=== PATIENT | male | born 1945 | race African-American/Black ===

== ENCOUNTER 2017-06-01 10:14 | Day surgery (SDC) | payer MEDICARE, BC ==
[2017-06-01] MEDS ORDERED: diphenhydrAMINE HCl 25 MG CAP PO SCH (11:15)
[2017-06-01] MEDS ORDERED: Acetaminophen 500 MG TAB PO SCH (11:15)
[2017-06-01 18:58] VITALS: BP 117/64; TEMP 98.1
[2017-06-01 19:20] LABS: #Basophils 0.1 thou/uL (0.0-0.2); #Eosinphils 1.3 thou/uL (0.0-0.7); #Lymphocytes 2.4 thou/uL (1.20-3.40); #Monocytes 1.5 thou/uL (0.11-0.59); #Neutrophils 5.6 thou/uL (1.40-6.50); %Basophils 0.6 % (0.0-1.0); %Lymphocytes 22.2 % (21.0-51.0); %Monocytes 13.8 % (0.0-10.0); Hematocrit 28.6 % (42.0-52.0); Mean Platelet Volume 7.7 fL (7.4-10.4); Red Blood Cell (RBC) Count 3.04 mill/uL (4.70-6.10); White Blood Cell (WBC) Count 10.9 thou/uL (4.8-10.8)
== END 2017-06-01 19:14 | disposition home or self-care (01) ==
LOC: ONC/OP 10:14
PROVIDERS: ATTEND Internal Medicine Hematology & Oncology
PROC: 30233N1 Transfusion of Nonautologous Red Blood Cells into Peripheral Vein, Percutaneous Approach (ICD-10-PCS; principal; 2017-06-01)
DX: D64.9 Anemia, unspecified (principal); D69.6 Thrombocytopenia, unspecified; I12.0 Hypertensive chronic kidney disease with stage 5 chronic kidney disease or end stage renal disease; N18.6 End stage renal disease; C90.00 Multiple myeloma not having achieved remission; Z79.82 Long term (current) use of aspirin; Z79.899 Other long term (current) drug therapy; Z88.0 Allergy status to penicillin; Z99.2 Dependence on renal dialysis; Z89.512 Acquired absence of left leg below knee; Z89.511 Acquired absence of right leg below knee
CPT/HCPCS: 36415; 36430; 85025; 86850; 86900; 86901; 86922; P9016

== ENCOUNTER 2017-06-13 10:36 | Observation (INO) | payer MEDICARE, BC ==
[2017-06-13 12:10] LABS: Hematocrit 22.3 % (42.0-52.0); Mean Platelet Volume 7.3 fL (7.4-10.4); Red Blood Cell (RBC) Count 2.19 mill/uL (4.70-6.10); White Blood Cell (WBC) Count 12.1 thou/uL (4.8-10.8)
[2017-06-13] MEDS ORDERED: Propofol 200 MG/20 ML VIAL ONE (12:19)
[2017-06-13 12:21] LABS: #Eosinphils 1.4 thou/uL (0.0-0.7); #Lymphocytes 1.9 thou/uL (1.20-3.40); #Neutrophils 7.7 thou/uL (1.40-6.50); %Basophils 0.4 % (0.0-1.0); %Eosinophils 11.7 % (0.0-10.0); %Monocytes 7.9 % (0.0-10.0)
[2017-06-13 12:36] LABS: Anisocytosis MODERATE=16-30 cells (100X) (0-5/hpf); Hypochromia MODERATE=16-30 cells (100X) (0-5/hpf); Polychromasia MODERATE = 3-4 cells (100X) (0-2/hpf)
[2017-06-13] MEDS ORDERED: traMADol HCl 50 MG TAB PO PRN (16:48)
[2017-06-13] MEDS ORDERED: Lorazepam 1 MG TAB PO PRN (16:48)
[2017-06-13] MEDS: Carvedilol 3.125 MG TAB PO SCH (17:29)
--- NOTE | 2017-06-13 20:43 | CON ---
DATE OF CONSULTATION: 06/13/2017 REASON FOR CONSULTATION: Severe anemia. HISTORY OF PRESENT ILLNESS: Mr. Espino is a pleasant 71-year-old gentleman with a history of IgG Lambda multiple myeloma. He was treated in 2014 with Velcade, dexamethasone and Cytoxan. In 10/2015, he had prolonged hospitalization secondary to influenza and respiratory failure. This resulted in bilateral peripheral vascular disease causing necrosis of both feet. He had bilateral BKA with prostatic fitting. He has had stable myeloma until 08/2016 when his M spike started to rise. The patient has been on hemodialysis since his hospitalization in 2015. He has a chronic anemia. He was last seen in our clinic on 06/01/2017. His states that had a drop in hemoglobin recently, noted at dialysis. His stool guaiac was positive. He denies any tasha bleeding , but does have some black stools. He was transfused on 06/01/2017 with 2 units of packed RBCs for a hgb of 7.5. He improved to 9.2. His hemoglobin today was 6.6, so he was admitted for further workup. He denies any shortness of breath or chest pain. He complains of fatigue. He states he does see a stool in toilet when he flushes and occasionally on his tissue paper. He has hemodialysis on Saturday, Saturday, and Saturday. He states that he is not on Procrit injections. They were stopped in January or February when his hemoglobin was stable around 10. PAST MEDICAL HISTORY: 1. Multiple myeloma. 2. High cholesterol. 3. Hypertension. 4. Osteoarthritis. 5. Peripheral vascular disease. 6. End-stage renal disease. PAST SURGICAL HISTORY: 1. Bilateral BKA. 2. Fistula placement. 3. Multiple EGD and colonoscopies. FAMILY HISTORY: Noncontributory. SOCIAL HISTORY: , has 3 children, lives with his spouse. He is a former smoker. No alcohol or illicit drug use. ALLERGIES: PENICILLIN. HOME MEDICATIONS: 1. Renvela 800 mg t.i.d. 2. Acyclovir 400 mg daily. 3. Coreg 3.125 mg b.i.d. 4. Atorvastatin 80 mg daily. 5. Pepcid 20 mg daily. 6. Ferrous sulfate 325 mg daily. 7. Lorazepam p.r.n. 8. Magnesium oxide 400 mg daily. 9. MiraLax p.r.n. 10. Aspirin 81 mg daily. REVIEW OF SYSTEMS: Twelve point review of systems negative except for noted in HPI. PHYSICAL EXAMINATION: VITAL SIGNS: Temperature is 99.5, pulse is 67, respiratory rate 16, BP is 132/ 72, he is 100% on 2 liters. GENERAL: A thin male in no acute distress. HEENT: Normocephalic, atraumatic. Pupils equal and reactive to light. NECK: Supple. CARDIOVASCULAR: Regular rate and rhythm. LUNGS: Clear to auscultation. ABDOMEN: Soft and nontender. There is no organomegaly. EXTREMITIES: Bilateral BKAs with healed incisions. SKIN: No rash. LYMPHATIC: No adenopathy. HEMATOLOGIC: No petechia or purpura. NEUROLOGIC: Nonfocal. PSYCHIATRIC: The patient is alert and oriented and appropriate. PERTINENT LABORATORY DATA AND X-RAYS: Current WBCs are 12.1, hemoglobin 6.6, hematocrit 22.3, platelet count is 382,000, 64% neutrophils, and 16% lymphocytes. IMPRESSION: 1. Severe symptomatic anemia, multifactorial including bone marrow infiltration , ESRD, poss gi bleed. 2. Multiple myeloma. 3. End-stage renal disease on hemodialysis. DISCUSSION: The patient will be transfused 2 units of packed RBCs. He will have a CT enterography tomorrow to look at the small bowel. He does not require any treatment for his multiple myeloma at this time and has been stable. His ferritin is greater than 1700, so we will hold ferrous sulfate for now and resume at discharge. We may need to consider low-dose Procrit with hemodialysis. We will follow his CBC. Thank you for the consult. MING
[2017-06-13] MEDS ORDERED: Atorvastatin Calcium 40 MG TAB PO SCH (21:00)
[2017-06-13] MEDS ORDERED: Mirtazapine 15 MG TAB PO SCH (21:00)
--- NOTE | 2017-06-13 21:18 | CON ---
DATE OF CONSULTATION: 06/13/2017 REQUESTING PHYSICIAN: Dr. Morgan. PRIMARY CARE PHYSICIAN: Dr. Thomas PRIMARY RESIDENT BUYER: Dr. Florencio Velez. PRIMARY ONCOLOGIST: Dr. Mooney. REASON FOR CONSULTATION: Medical management. PRIMARY HEAD LOFT WORKER: Dr. Morgan. HISTORY OF PRESENT ILLNESS: Mr. Min Espino is a 71-year-old male with a history of multiple myel noel with a partial response to dexamethasone and Cytoxan, peripheral vascular disease resulting in b ilateral BKAs, end-stage renal disease, on hemodialysis Saturday, Saturday, Saturday, as well as a hist ory of current AVMs, who has been direct admit under the Gastroenterology Service for evaluation of his anemia. I reviewing previous records, the patient has a history of chronic anemia secondary to end-stage renal disease as well as multiple myeloma, but the beginning of May was noted to have a hemoglobin down to the 7s. He did receive 2 units of PRBCs. We treated his hemoglobin to 9, li mary lou, during dialysis, a routine H\T\H was checked and he was noted to be markedly anemic. He also s tated he had streaks of blood in his stool. Subsequently, a Hemoccult testing was performed, which was positive. He states he has been fatigued and short of breath and has had episodes of lightheade dness. No chest pain, palpitations, syncope was reported. In 2014, the patient had an colonoscopy as well as a capsule endoscopy, and was found to have several AVMs. Today due to his anemia, the pa marie underwent an endoscopy as well as colonoscopy, which was reportedly negative. He has been now admitted to the medical floor and is scheduled for an enterography in the morning. Currently, he i s resting comfortably and in no acute distress. Denies any chest pain or shortness of breath. The Hospitalist Service has been consulted for medical management. PAST MEDICAL HISTORY: 1. Multiple myeloma with a response to Velcade, dexamethasone, and Cytoxan in 2014. 2. End-stage renal disease, on hemodialysis Saturday, Saturday, and Saturday. 3. History of peripheral vascular disease. 4. AVM. 5. Anemia secondary to multiple myeloma and chronic kidney disease. PAST SURGICAL HISTORY: 1. Bilateral BKAs. 2. Right Julio fistula. CODE STATUS: FULL CODE. SOCIAL HISTORY: Denies any alcohol use, no tobacco use, no illicit drug use. MEDICATIONS: 1. Mirtazapine 50 mg p.o. at bedtime. 2. Ativan 1 mg p.o. t.i.d. p.r.n. 3. Ferrous sulfate 325 mg p.o. daily. 4. Coreg 3.125 mg p.o. b.i.d. 5. Lipitor 80 mg p.o. at bedtime. 6. Ultram 50 mg p.o. q.6 hours p.r.n. ALLERGIES: PENICILLINS. FAMILY HISTORY: Reviewed and noncontributory. REVIEW OF SYSTEMS: A full 10-point review of systems was obtained and is negative unless otherwise mentioned in the HPI. PHYSICAL EXAMINATION: CONSTITUTIONAL/VITAL SIGNS: Blood pressure 129/70, O2 saturation 100% on 2 liters nasal cannula, re spirations are 16, pulse is 69, and temperature is 98.0. GENERAL: He is in no acute distress, nontoxic appearing. HEENT: Pupils are equally round and accommodation. No scleral icterus. He has pale conjunctivae. ENT/MOUTH: Dry oral mucosa. RESPIRATORY: Equal chest wall expansion. No wheezes, rhonchi, or rales. CARDIOVASCULAR: S1 and S2 present. No murmurs, gallops, or rubs. GASTROINTESTINAL: Soft, nontender, nondistended. Bowel sounds present in all 4 quadrants. MUSCULOSKELETAL: He has bilateral BKAs. NEUROLOGIC: No ptosis, no facial sensation or jaw protrusion, no focal deficits. PSYCHIATRIC: He is awake, alert to time, place, person, answers questions appropriately. SKIN: Normal skin turgor. LABORATORY AND X-RAY FINDINGS: Taken prior to EGD revealed WBC of 12.1, hemoglobin 6.6, hematocrit 22.3, and platelet count 382,000. No imaging has performed. Other laboratory values sent with the patient include total IgA level 148. IgG 1343. is 18. ASSESSMENT AND PLAN: Mr. Min Espino is a 71-year-old male with a past medical history of multipl e myeloma, end-stage renal disease on hemodialysis, hypertension, peripheral vascular disease, who p resents as a direct admit for an evaluation of anemia. 1. Anemia. The patient has been admitted to the medical floor. His anemia is most likely multifac torial; however, given his acute drop in hemoglobin as well as a positive Hemoccult further evaluati on, intervention is warranted to evaluate the etiology of this. His endoscopy and colonoscopy repor tedly normal. He is set for enterography in the morning. The patient will be transfused 2 units of PRBCs. We will monitor his H\T\H and transfuse as needed. He may require Procrit with hemodialysi s. Gastroenterology is aware of the patient. As stated before, we will transfuse p.r.n. 2. Hypertension. Continue with Coreg. 3. Peripheral vascular disease. Continue with beta-leta and statin therapy. 4. End-stage renal disease, on hemodialysis. Nephrology with Dr. Velez has been consulted. He sh ould undergo routine hemodialysis on Saturday, Saturday, and Saturday. 5. Resume the patient's home medications except for aspirin. 6. Renal diet. 7. Check daily labs. 8. P.r.n. order set. 9. I explained all this to the patient at bedside. He is agreeable to the plan of treatment. All questions have been answered. 10. The patient's further hospital course will be dictated by his clinical course while here. I wi ll follow the patient while he is in house. Thank you for the courtesy of this consultation.
--- NOTE | 2017-06-13 22:05 | OP ---
DATE OF PROCEDURE: 06/13/2017 PREOPERATIVE DIAGNOSES: 1. Recurrent anemia requiring transfusion and redevelopment of anemia again, no overt bleeding, [place] the patient sometimes has a bowel movement and there is some blood leaching out from the stool . 2. Normal esophagogastroduodenoscopy and colonoscopy in 2014, capsule endoscopy of the small bowel in 2014. He had some scant bleeding in the small bowel, which is felt to be related to arteriovenou s malformations. At that time, he managed well and was on iron. Now, he is having recurrent transf usions despite being on iron. PROCEDURES PERFORMED: Esophagogastroduodenoscopy, enteroscopy, and colonoscopy. POSTOPERATIVE DIAGNOSES: Normal esophagogastroduodenoscopy, normal enteroscopy, and normal colonosc opy. Hemoglobin today was 6.2. RECOMMENDATIONS: 1. Admit to the hospital for transfusion 1 unit today and 1 unit tomorrow on dialysis. 2. CT enterography to rule out mass lesion to the small bowel. 2. We will consult his sweep press operator with regard to his myeloma, which probably is contributing as w ell and also his medicaid nurse. ANESTHESIA: TIVA. PROCEDURE IN DETAIL: After the patient was informed of the risks, benefits, possible complications of endoscopy including perforation, bleeding, reactions to medication and aspiration, informed conse nt was obtained. The patient was brought to endoscopy suite in a gradual fashion. Once he was comf ortable, a bite block was placed in the incisural orifice. The endoscope was advanced through the e sophagus, stomach, and second and third portion of the duodenum and slowly removed. There was a goo d visualization of the mucosa. No masses, lesions, or arteriovenous malformations. The scope was a dvanced down to the proximal jejunum. No bleeding, old blood, or bleeding sites were identified. T he stomach was notable for slight petechiae, but no bleeding sites were identified. Retroflexed vie ws were normal. The esophagus was normal. The scope was removed. The patient was turned in the room. A rectal exam was performed. The endoscope was advanced throug h the anal canal through the colon to the cecum and into the terminal ileum. There were no abnormal ities noted. There was no fresh blood or old blood or signs of stigmata of recent bleeding. Retrof lexed views in the rectum were normal. The scope was removed. The patient tolerated the procedure well with no complications.
--- NOTE | 2017-06-13 22:17 | HP ---
HISTORY OF PRESENT ILLNESS: Mr. Espino is a 71-year-old gentleman who knows me from previous diagn osis of multiple myeloma prior to 2014. He was treated initially with Dr. Venegas in [facility] and doctors in [facility]. When he was initially diagnosed, he had severe problems in the knee. Endoscopy showed nothing abnormal. On CAT scan, retroperitoneal hematoma around the d uodenum and pancreatic region. This was biopsied actually at one point in time at [facility], not felt to be a mass or related to myeloma or anything else. He had a capsule endoscopy of the sma ll bowel in 2013 that showed some AVMs in the small bowel with some slight bleeding. We have talked about sending him to [facility] for deep enteroscopy, but ultimately, he was able to be maintained on iron supplementation. Earlier this year, he got acutely ill and had become septic and was on dialys is. Ultimately, he had 2 bilateral BKA amputations. Just recently, he has been having more problem s with anemia on dialysis. He received 2 units of blood for hemoglobin of 7.2 by his report and his director voice report. Then he he was seen in our office earlier this week. He was asked to be reev aluated for possible GI blood loss, it was felt to be an excess related to that of myeloma or dialys is for end-stage renal disease. He reports that he has seen occasionally scant blood reaching out o f the stool, but the stools are typically brown. He has had no overt clots or melenic stool. Prese ntly, he is dialyzing Saturday, Saturday, and Saturday. We did obtain hemoglobin here before his endos copy and it was 6.2 with his endoscopies are being normal today including deep enteroscopy from [facility], we decided to admit him for blood transfusion and further evaluation. MEDICATIONS: Acyclovir, carvedilol, atorvastatin, famotidine, ferrous sulfate, lorazepam, hydrocodo ne p.r.n., magnesium oxide p.r.n., MiraLax p.r.n., mirtazapine, p.r.n. Zofran, promethazine, aspirin 81 mg a day, Renvela, and Tylenol. PAST MEDICAL HISTORY: Multiple myeloma, end-stage renal disease, and chronic anemia. PAST SURGICAL HISTORY: Bilateral AKA, previous EUS with biopsy of retroperitoneal mass which was ju st a hematoma, and previous endoscopies. ALLERGIES: PENICILLIN. SOCIAL HISTORY: Former smoker. Does not smoke now. PHYSICAL EXAMINATION: VITAL SIGNS: Stable. HEENT: Within normal limits. NECK: Supple. LUNGS: Clear. HEART: Regular rate and rhythm without clicks or murmurs. ABDOMEN: Soft, nontender, nondistended. LABORATORY STUDIES: Hemoglobin 6.6, white count 12.1, MCV 102, platelet count 389. Ferritin was 17 69 on 05/30/2017. ASSESSMENT: Anemia of unclear etiology. No overt signs of bleeding, minimal history of bleeding pe r the patient. I do not think this would explain his need for transfusion of 2 units on 06/01/2017 and now needing blood again today. RECOMMENDATIONS: Admit to the hospital. We will re-involve his director voice and his program aide i n his care. I will perform CT enteroscopy to evaluate for small bowel lesions, retroperitoneal lesi ons, and observe for any signs of bleeding. If he has any signs of acute bleeding, he will be trans ferred to a tertiary facility where deep balloon enteroscopy is available.
[2017-06-14 05:28] LABS: Hematocrit 24.2 % (42.0-52.0)
[2017-06-14 05:47] LABS: Anion Gap 20 mmol/L (10-20); BUN (Urea Nitrogen) 40 mg/dL (8.4-25.7); BUN/Creatinine Ratio 5.44; Calc. Creatinine Clearance 13 mL/min (70-130); Calcium 9.2 mg/dL (7.8-10.44); Carbon Dioxide 19 mmol/L (23-31); Chloride 104 mmol/L (98-107); Estimated GFR-MDRD 9; Phosphorus 5.4 mg/dL (2.3-4.7)
[2017-06-14] MEDS ORDERED: Acetaminophen 325 MG TAB PO PRN (07:30)
[2017-06-14] MEDS ORDERED: Milk Of Magnesia 30 ML UDCUP PO PRN (07:30)
[2017-06-14] MEDS ORDERED: hydrALAZINE 20 MG/ML VIAL SLOW IVP PRN (07:30)
[2017-06-14] MEDS ORDERED: Sodium Chloride 0.65% Nasal 44 ML BOT EA NARE PRN (07:30)
[2017-06-14] MEDS ORDERED: Senokot 8.6 MG TAB PO PRN (07:30)
[2017-06-14] MEDS ORDERED: Ondansetron ODT 4 MG TAB PO PRN (07:30)
[2017-06-14] MEDS ORDERED: Diabetic Tussin 200 MG/10 ML UDCUP PO PRN (07:30)
[2017-06-14] MEDS ORDERED: Mag-Al 1200 mg/1200 mg/30 ML UDCUP PO PRN (07:30)
[2017-06-14] MEDS ORDERED: Ondansetron HCl/PF 4 MG/2 ML Vial IVP PRN (07:30)
[2017-06-14] MEDS: Carvedilol 3.125 MG TAB PO SCH ×3 (08:38→18:32)
[2017-06-14] MEDS ORDERED: Famotidine 20 MG TAB PO SCH (09:00)
[2017-06-14] MEDS ORDERED: Heparin 1,000 UNITS/ML VIAL ONE (11:11)
--- NOTE | 2017-06-14 11:47 | PDOC.PN ---
- Subjective Encounter Start Date: 06/14/17 Encounter Start Time: 09:30 -: old records requested/rev Patient seen and examined. No new complaints. No overnight events - Objective MAR Reviewed: Yes Vital Signs & Weight: Vital Signs (12 hours) Temp Pulse Resp BP BP Pulse Ox 06/14/17 08:00 98.0 F 62 16 06/14/17 07:56 98.0 F 62 16 133/68 100 06/14/17 04:00 98.4 F 70 18 124/66 98 06/14/17 00:17 98.2 F 69 18 115/61 100 Weight Weight 220 lb 5 oz I&O: 06/13/17 06/14/17 06/15/17 06:59 06:59 06:59 Intake Total 350 0 Balance 350 0 Result Diagrams: 06/14/17 04:26 06/14/17 04:26 Radiology Reviewed by me: Yes Phys Exam - Physical Examination Constitutional: NAD HEENT: PERRLA, moist MMs, sclera anicteric Neck: no JVD, supple Respiratory: no wheezing, no rales, no rhonchi Cardiovascular: RRR, no significant murmur, no rub Gastrointestinal: soft, non-tender, no distention, positive bowel sounds Musculoskeletal: no edema, pulses present Neurological: non-focal, normal sensation, moves all 4 limbs Psychiatric: normal affect, A&O x 3 Skin: no rash, normal turgor Dx/Plan (1) Anemia Code(s): D64.9 - ANEMIA, UNSPECIFIED Status: Chronic (2) Anxiety and depression Code(s): F41.8 - OTHER SPECIFIED ANXIETY DISORDERS Status: Chronic (3) Dyslipidemia Code(s): E78.5 - HYPERLIPIDEMIA, UNSPECIFIED Status: Chronic (4) ESRD (end stage renal disease) on dialysis Code(s): N18.6 - END STAGE RENAL DISEASE; Z99.2 - DEPENDENCE ON RENAL DIALYSIS Status: Chronic Comment: On HD per Dr Velez (5) HTN (hypertension) Code(s): I10 - ESSENTIAL (PRIMARY) HYPERTENSION Status: Chronic (6) Hx of below knee amputation Code(s): Z89.519 - ACQUIRED ABSENCE OF UNSPECIFIED LEG BELOW KNEE Status: Chronic (7) Multiple myeloma Code(s): C90.00 - MULTIPLE MYELOMA NOT HAVING ACHIEVED REMISSION Status: Chronic (8) Obesity (BMI 30-39.9) Code(s): E66.9 - OBESITY, UNSPECIFIED Status: Chronic (9) PVD (peripheral vascular disease) Code(s): I73.9 - PERIPHERAL VASCULAR DISEASE, UNSPECIFIED Status: Chronic - Plan cont current plan of care * one unit prbc given, 2nd unit will be given with HD later today * CT abdomen done * procrit with HD * medication reviewed as below * symptomatic treatment * discharge per GI . Review of Systems - Review of Systems ENT: negative: Ear Pain, Ear Discharge, Nose Pain, Nose Discharge, Nose Congestion, Mouth Pain, Mouth Swelling, Throat Pain, Throat Swelling, Other Respiratory: negative: Cough, Dry, Shortness of Breath, Hemoptysis, SOB with Excertion, Pleuritic Pain, Sputum, Wheezing Cardiovascular: negative: Chest Pain, Palpitations, Orthopnea, Paroxysmal Noc. Dyspnea, Edema, Light Headedness, Other Gastrointestinal: negative: Nausea, Vomiting, Abdominal Pain, Diarrhea, Constipation, Melena, Hematochezia, Other Genitourinary: negative: Dysuria, Frequency, Incontinence, Hematuria, Retention , Other Musculoskeletal: negative: Neck Pain, Shoulder Pain, Arm Pain, Back Pain, Hand Pain, Leg Pain, Foot Pain, Other - Medications/Allergies Allergies/Adverse Reactions: Allergies Allergy/AdvReac Type Severity Reaction Status Date / Time Penicillins Allergy "loiss, Verified 06/12/17 15:06 can't breathe" Medications: Current Medications Acetaminophen (Tylenol) 650 mg PO Q4H PRN PRN Reason: Headache/Fever or Mild Pain Al Hydroxide/Mg Hydroxide (Maalox) 15 ml PO Q4H PRN PRN Reason: Heartburn or Indigestion Atorvastatin Calcium (Lipitor) 80 mg PO HS [facility] Last Admin: 06/13/17 21:26 Dose: 80 mg Carvedilol (Coreg) 3.125 mg PO BID-WM [facility] Last Admin: 06/14/17 10:07 Dose: 3.125 mg Famotidine (Pepcid) 20 mg PO DAILY [facility] Last Admin: 06/14/17 10:07 Dose: 20 mg Guaifenesin (Robitussin Sf) 200 mg PO Q4H PRN PRN Reason: Cough Hydralazine HCl (Apresoline) 10 mg SLOW IVP Q4H PRN PRN Reason: Systolic BP > 180 Lorazepam (Ativan) 1 mg PO TID PRN PRN Reason: Anxiety/Agitation Magnesium Hydroxide (Milk Of Magnesium) 30 ml PO DAILYPRN PRN PRN Reason: Constipation Mirtazapine (Remeron) 15 mg PO HS [facility] Last Admin: 06/13/17 21:27 Dose: 15 mg Ondansetron HCl (Zofran Odt) 4 mg PO Q6H PRN PRN Reason: Nausea/Vomiting Ondansetron HCl (Zofran) 4 mg IVP Q6H PRN PRN Reason: Nausea/Vomiting Senna (Senokot) 2 tab PO HSPRN PRN PRN Reason: Constipation Sodium Chloride (Flush - Normal Saline) 10 ml IVF PRN PRN PRN Reason: Saline Flush Sodium Chloride (Flush - Normal Saline) 10 ml IVF BID [facility] Last Admin: 06/14/17 10:08 Dose: 10 ml Sodium Chloride (Tornado Nasal [place]umpass 0.65%) 0 ml EA NARE QIDPRN PRN PRN Reason: Nasal Congestion Tramadol HCl (Ultram) 50 mg PO Q6H PRN PRN Reason: Pain
[2017-06-14] MEDS ORDERED: Heparin 10,000 UNITS/ 10 ML VIAL FS PRN ×2 (12:20)
[2017-06-14] MEDS ORDERED: Sodium Chloride 0.9% 100 ML BAG IVPB PRN (12:30)
[2017-06-14] MEDS ORDERED: Epoetin (ESRD) 20,000 UNITS/ML IVP SCH (12:30)
[2017-06-14] MEDS ORDERED: Epoetin (ESRD) 20,000 UNITS/ML SC SCH (12:45)
[2017-06-14 13:06] VITALS: BMI 15.5
--- NOTE | 2017-06-14 13:30 | DIS ---
DATE OF ADMISSION: 06/13/2017 DATE OF DISCHARGE: Pending. PRIMARY DISCHARGE DIAGNOSIS: Symptomatic anemia, status post transfusion of packed red blood cells. SECONDARY DISCHARGE DIAGNOSES: Anxiety and depression, dyslipidemia, end-stage renal disease on hem odialysis, hypertension, history of below-knee amputation, multiple myeloma, and peripheral vascular disease. PRIMARY PROCEDURE/OPERATION: Dr. Morgan did endoscopy with esophagogastroduodenoscopy which was nor mal, enteroscopy was normal and colonoscopy was also normal. RADIOLOGICAL INVESTIGATION: Abdomen and pelvis CT scan was done, official report is pending. SIGNIFICANT LABS: Hemoglobin 7.5, WBC 12.1, and platelets 349. Sodium 138, creatinine 7.35, potass ium 4.9, albumin 3.0. DISCHARGE MEDICATIONS: Lipitor 80 mg p.o. at bedtime, Coreg 3.125 mg p.o. b.i.d., ferrous sulfate 3 25 mg p.o. daily, Ativan 1 mg p.o. t.i.d. p.r.n., Remeron 15 mg p.o. at bedtime, and tramadol 50 mg q.6 hourly p.r.n. CONTRAINDICATIONS: None. CODE STATUS: FULL CODE. INPATIENT CONSULTANTS: Dr. Morgan was primary while in hospital. Sound team was consulted for medi kevin management. Dr. Blayne Ware with a enchilada maker was consulted while in hospital. TEST RESULTS PENDING ON DISCHARGE: CT abdomen and pelvis. DISCHARGE PLAN: Post hospital, the patient will follow up with Dr. Morgan and Dr. Blayne Ware as a n outpatient basis. HOSPITAL COURSE: A 71-year-old male who was admitted by Dr. Mogran from his office. This patient w as having low hemoglobin. At this time, Dr. Morgan did endoscopy with upper endoscopy, lower endosc opy, and enteroscopy which was normal. He was admitted for blood transfusion. He received 1 unit o f blood transfusion yesterday and today he is with the dialysis. He is going to get another unit of blood transfusion. As endoscopy was negative, that is why we did CT abdomen and pelvis to rule out any pathology. Hematology was also consulted while in hospital and they recommended to continue Pr ocrit therapy with the dialysis as needed basis. At this point, the patient is on appropriate home medication and he will continue all his previous m edication upon discharge. The patient is seen and examined at bedside today as long as Dr. Eddie arellano and CT abdomen and pelvis is not showing any worrisome finding then this patient is medically st able for discharge after dialysis. The patient is seen and examined at bedside today. Please see m y progress note from today for further details.
--- NOTE | 2017-06-14 13:33 | CT ---
CT ABDOMEN AND PELVIS WITH AND WITHOUT IV CONTRAST FOLLOWING ENTEROGRAPHY PROTOCOL: DATE: 06/14/17. HISTORY: Anemia. FINDINGS: There is dependent bibasilar atelectasis with tiny left pleural effusion present. The gallbladder is decompressed with gallbladder calculus present. There are multiple subcentimeter too small to characterize hypodense lesions seen throughout each lo be of the liver with additional larger hypodense hepatic lesions which demonstrate fluid attenuation are consistent with cysts with a larger hypodense lesion in the posterior inferior aspect posterior segment right hepatic lobe measuring 1.9 cm as well as a hypodense lesion in the caudate lobe measu ring 1.5 cm. The findings are likely related to multiple hepatic cysts, some of which were imaged o n prior CTA of the chest on 10/25/15. While cystic metastatic lesions could not be entirely excluded given multiplicity, findings are probably related to hepatic cyst. There is an ill-defined low-dens ity area seen at the most anterior aspect medial segment of the left hepatic lobe which does not hav e the appearance of a cyst. This may represent a perfusion abnormality in this region. There is al so an ill-defined low-density area surrounding the presumed cyst in the inferior aspect posterior se gment right hepatic lobe which also could be related to perfusion defect. There is a low-density lesion measuring 1.4 cm seen in the superior pole of the spleen. This low-de nsity lesion on prior study in 2016 measured 2.2 cm. The spleen is slightly heterogeneous in appear ance probably related to phase of enhancement. There is a subcentimeter nodule in the right adrenal gland demonstrating attenuation coefficient mos t suggestive of a small adrenal adenoma. There is a 7 mm exophytic slightly increased density lesion at the posterior aspect superior pole ri ght kidney which does appear to demonstrate mild enhancement and may represent a very tiny renal tiesha l carcinoma. However, this is difficult to accurately characterize due to very small size. The left adrenal gland and kidney have a normal CT appearance. The stomach is distended with fluid and gas and has a normal appearance. The small bowel loops are normal in caliber, and no obvious lesion is seen within loops of small bowel. There is a small amount of free fluid seen in the abdomen, predominantly adjacent to the liver and s pleen and in each paracolic gutter. There are a few scattered colonic diverticula seen. There is fluid surrounding the appendix, but the appendix is filled with gas and normal in caliber. Vascular calcifications are seen in the abdominal aorta and involving the iliac arteries. The mesen teric vessels are patent. There is a single right renal artery which appears grossly patent. There are 2 left renal arteries which also appear patent with very tiny more inferiorly located accessory left renal artery. The urinary bladder is incompletely distended. IMPRESSION: 1. Suggestion of a very tiny enhancing lesion at the superior pole right kidney. While this is dif ficult to definitively characterize due to very small size, there is a question of mild enhancement and followup CT scan examination in 4-6 months is recommended for further evaluation. 2. Multiple hypodense lesions seen throughout each lobe of the liver statistically most likely repr esenting multiple hepatic cysts. There are ill-defined low-density areas within the left and right hepatic lobes which may be related to perfusion abnormalities. 3. Low-density lesion in the superior pole of the spleen which is smaller in size compared to the s monsedy in 2016. 4. Small amount of intraperitoneal free fluid. 5. Cholelithiasis with evidence of decompressed gallbladder. 6. No small bowel abnormality is visualized on this exam. 7. Tiny right adrenal adenoma. POS: RAYMOND
[2017-06-14 18:40] VITALS: BP 133/70; TEMP 97.8
--- NOTE | 2017-06-15 00:41 | PRG ---
DATE OF SERVICE: 06/14/2017 SUBJECTIVE: Mr. Espino has had no overt signs of bleeding. 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 He was dialyzed and received 1 unit of blood yesterday and he is going to receive 1 unit of blood n ow and dialysis. He is without complaints. OBJECTIVE: VITAL SIGNS: Temperature is 97 and blood pressure 120/66. LUNGS: Clear. HEART: Regular rate and rhythm without clicks or murmurs. ABDOMEN: Nontender. LABORATORY STUDIES: Hemoglobin 7.5 from 6.6 after [address] mesenteric angiogram showed normal small bowel and stomach, some small enhancing lesions in the kidney, cystic lesions in the li mary lou, lesions in the spleen which were smaller than in studies in 2016, cholelithiasis with a decompr essed gallbladder, small right adrenal adenoma. ASSESSMENT: Recurrent anemia. His EGD and colonoscopy and small bowel enteroscopy were normal exce pt for a few small petechiae in the stomach. The patient did have a capsule endoscopy in 2013, whic h revealed some bleeding in the small bowel. It is unlikely we were able to get to that area with h is endoscopies. There are no overt signs of bleeding at this time. RECOMMENDATIONS: We will place him on a PPI. Agree with plan for Epogen. If he continues to be tr ansfusion dependent in the outpatient setting, we can send him on to [place] or [place] for a double balloon enteroscopy to check a small bowel series to see if there is an AVM or something to alireza salter, but at this time I do not see any evidence of overt bleeding.
== END 2017-06-14 19:30 | disposition home or self-care (01) ==
LOC: SDC 10:36 → T4-B 13:30
PROVIDERS: ADMIT Internal Medicine Gastroenterology; ATTEND Internal Medicine Gastroenterology
PROC: 0DJD8ZZ Inspection of Lower Intestinal Tract, Via Natural or Artificial Opening Endoscopic (ICD-10-PCS; principal; 2017-06-13)
PROC: 0DJ08ZZ Inspection of Upper Intestinal Tract, Via Natural or Artificial Opening Endoscopic (ICD-10-PCS; 2017-06-13)
DX: D64.9 Anemia, unspecified (principal); K92.2 Gastrointestinal hemorrhage, unspecified; I12.0 Hypertensive chronic kidney disease with stage 5 chronic kidney disease or end stage renal disease; N18.6 End stage renal disease; I73.9 Peripheral vascular disease, unspecified; F32.9 Major depressive disorder, single episode, unspecified; F41.9 Anxiety disorder, unspecified; E78.5 Hyperlipidemia, unspecified; Z88.0 Allergy status to penicillin; Z79.82 Long term (current) use of aspirin; Z79.899 Other long term (current) drug therapy; Z89.511 Acquired absence of right leg below knee; Z89.512 Acquired absence of left leg below knee; Z87.891 Personal history of nicotine dependence; Z99.2 Dependence on renal dialysis
CPT/HCPCS: 36430 ×2; 43235; 45378; 74178; 80069; 85014; 85018; 85025; 85049; 86850; 86900; 86901; 86920; 86922; G0378; G0379; P9016 ×2; Q4081; 36415; 90935; A4216; G0257; J1644; J2704

== ENCOUNTER 2017-10-22 08:15 | Day surgery (SDC) | payer MEDICARE, BC ==
[2017-10-22] MEDS ORDERED: diphenhydrAMINE 25 MG CAP PO SCH (08:45)
[2017-10-22] MEDS ORDERED: Acetaminophen 500 MG TAB PO SCH (08:45)
[2017-10-22] MEDS ORDERED: Sodium Chloride 0.9% 20 ML ONE (09:02)
[2017-10-22 15:14] VITALS: BP 131/61; TEMP 98.2
[2017-10-22 15:48] LABS: Hemoglobin 9.1 g/dL (14.0-18.0); Mean Corpuscular HGB CONC 31.9 g/dL (32.0-36.0); Mean Corpuscular Hemoglobin 28.2 pg (27.0-31.0); Mean Corpuscular Volume 88.4 fl (80.0-94.0); Mean Platelet Volume 12.1 fL (7.4-10.4); Platelet Count 166 thou/uL (130-400); RBC Distribution Width 18.2 % (11.5-14.5); Red Blood Cell (RBC) Count 3.24 mill/uL (4.70-6.10); White Blood Cell (WBC) Count 6.8 thou/uL (4.8-10.8)
[2017-10-22 16:07] LABS: Anisocytosis SLIGHT = 6-15 cells (100X) (0-5/hpf); Band 4 % (5-11); Eosinophils 11 % (0-10); Lymphocytes 12 % (21-51); MDiff Complete? YES; Monocytes 17 % (0-10); Neutrophil 55 % (42-75); Nucleated RBC 1 % (0); Ovalocytes SLIGHT = 2-5 cells (100X) (0-1/hpf); PLT Morphology Comment Appears Adequate; Polychromasia SLIGHT = 2-3 cells (100X) (0-2/hpf); Reactive Lymphocytes 1 % (0-10); Schistocytes SLIGHT = 2-5 cells (100X) (0-1/hpf); Target Cells SLIGHT = 2-5 cells (100X) (0-1/hpf); Tear Drops SLIGHT = 2-5 cells (100X) (0-1/hpf)
== END 2017-10-22 15:28 | disposition home or self-care (01) ==
LOC: ONC/OP 08:15
PROVIDERS: ATTEND Internal Medicine Hematology & Oncology
PROC: 30233N1 Transfusion of Nonautologous Red Blood Cells into Peripheral Vein, Percutaneous Approach (ICD-10-PCS; principal; 2017-10-22)
DX: I12.0 Hypertensive chronic kidney disease with stage 5 chronic kidney disease or end stage renal disease (principal); N18.6 End stage renal disease; D63.1 Anemia in chronic kidney disease; I73.9 Peripheral vascular disease, unspecified; E78.5 Hyperlipidemia, unspecified; F32.9 Major depressive disorder, single episode, unspecified; F41.9 Anxiety disorder, unspecified; Z88.0 Allergy status to penicillin; Z89.519 Acquired absence of unspecified leg below knee; Z99.2 Dependence on renal dialysis; Z98.890 Other specified postprocedural states
CPT/HCPCS: 36430; 85025; 86850; 86880; 86900; 86901; 86905; 86922; A4216; P9016

== ENCOUNTER 2017-11-05 07:53 | Day surgery (SDC) | payer MEDICARE, BC ==
[2017-11-05] MEDS ORDERED: Sodium Chloride 0.9% 30 ML ONE (08:11)
[2017-11-05] MEDS ORDERED: Acetaminophen 500 MG TAB PO SCH (08:15)
[2017-11-05] MEDS ORDERED: diphenhydrAMINE 25 MG CAP PO SCH (08:15)
[2017-11-05 15:23] VITALS: BP 131/59; TEMP 98.2
[2017-11-05 16:51] LABS: Hemoglobin 8.8 g/dL (14.0-18.0); Mean Corpuscular HGB CONC 31.9 g/dL (32.0-36.0); Mean Corpuscular Hemoglobin 28.7 pg (27.0-31.0); Mean Corpuscular Volume 89.9 fl (80.0-94.0); Mean Platelet Volume 10.9 fL (7.4-10.4); Platelet Count 174 thou/uL (130-400); RBC Distribution Width 18.2 % (11.5-14.5); Red Blood Cell (RBC) Count 3.07 mill/uL (4.70-6.10); White Blood Cell (WBC) Count 6.9 thou/uL (4.8-10.8)
[2017-11-05 17:22] LABS: Anisocytosis MODERATE=16-30 cells (100X) (0-5/hpf); Band 1 % (5-11); Elliptocytes SLIGHT = 2-5 cells (100X) (0-1/hpf); Eosinophils 3 % (0-10); Lymphocytes 16 % (21-51); MDiff Complete? YES; Monocytes 10 % (0-10); Neutrophil 69 % (42-75); Ovalocytes SLIGHT = 2-5 cells (100X) (0-1/hpf); PLT Morphology Comment Appears Adequate; Polychromasia SLIGHT = 2-3 cells (100X) (0-2/hpf); Schistocytes SLIGHT = 2-5 cells (100X) (0-1/hpf); Target Cells SLIGHT = 2-5 cells (100X) (0-1/hpf); Tear Drops SLIGHT = 2-5 cells (100X) (0-1/hpf)
== END 2017-11-05 16:05 | disposition home or self-care (01) ==
LOC: ONC/OP 07:53
PROVIDERS: ATTEND Internal Medicine Hematology & Oncology
PROC: 30233N1 Transfusion of Nonautologous Red Blood Cells into Peripheral Vein, Percutaneous Approach (ICD-10-PCS; principal; 2017-11-05)
DX: D64.9 Anemia, unspecified (principal); D69.6 Thrombocytopenia, unspecified; I12.0 Hypertensive chronic kidney disease with stage 5 chronic kidney disease or end stage renal disease; N18.6 End stage renal disease; C90.00 Multiple myeloma not having achieved remission; I73.9 Peripheral vascular disease, unspecified; F41.8 Other specified anxiety disorders; E78.5 Hyperlipidemia, unspecified; E66.9 Obesity, unspecified; Z88.0 Allergy status to penicillin; Z99.2 Dependence on renal dialysis; Z98.890 Other specified postprocedural states
CPT/HCPCS: 36430; 85025; 86850; 86900; 86901; 86922; A4216; P9016

== ENCOUNTER 2017-12-26 08:19 | Day surgery (SDC) | payer MEDICARE, BC ==
[2017-12-26] MEDS ORDERED: Sodium Chloride 0.9% 40 ML ONE (08:37)
[2017-12-26] MEDS ORDERED: Acetaminophen 500 MG TAB PO SCH (08:45)
[2017-12-26] MEDS ORDERED: diphenhydrAMINE 25 MG CAP PO SCH (08:45)
[2017-12-26 15:52] VITALS: BP 121/61; TEMP 98.4
== END 2017-12-26 15:52 | disposition home or self-care (01) ==
LOC: ONC/OP 08:19
PROVIDERS: ATTEND Internal Medicine Medical Oncology
PROC: 30233N1 Transfusion of Nonautologous Red Blood Cells into Peripheral Vein, Percutaneous Approach (ICD-10-PCS; principal; 2017-12-26)
DX: D64.9 Anemia, unspecified (principal); D69.6 Thrombocytopenia, unspecified; C90.00 Multiple myeloma not having achieved remission; I12.0 Hypertensive chronic kidney disease with stage 5 chronic kidney disease or end stage renal disease; N18.6 End stage renal disease; F32.9 Major depressive disorder, single episode, unspecified; F41.9 Anxiety disorder, unspecified; I73.9 Peripheral vascular disease, unspecified; E78.5 Hyperlipidemia, unspecified; Z99.2 Dependence on renal dialysis; Z88.0 Allergy status to penicillin
CPT/HCPCS: 36430; 85014; 85018; 86850; 86900; 86901; 86922; A4216; P9016

== ENCOUNTER 2018-03-25 12:48 | Outpatient (CLI) | payer MEDICARE, BC | END 2018-03-25 12:49 | disposition home or self-care (01) | LOC: BICRAD 12:48 | PROVIDERS: ATTEND Internal Medicine Hematology & Oncology | DX: C90.00 Multiple myeloma not having achieved remission (principal); R11.2 Nausea with vomiting, unspecified; N18.4 Chronic kidney disease, stage 4 (severe); D50.0 Iron deficiency anemia secondary to blood loss (chronic); D63.1 Anemia in chronic kidney disease; E83.52 Hypercalcemia | CPT/HCPCS: 77075 ==

== ENCOUNTER 2018-04-10 14:06 | Day surgery (SDC) | payer MEDICARE, BC ==
[2018-04-10 14:28] VITALS: BMI 17.6
[2018-04-10] MEDS ORDERED: diphenhydrAMINE 25 MG CAP PO SCH (14:30)
[2018-04-10] MEDS ORDERED: Acetaminophen 500 MG TAB PO SCH (14:30)
[2018-04-10 23:13] VITALS: BP 135/72; TEMP 98.5
[2018-04-10 23:55] LABS: Hemoglobin 10.2 g/dL (14.0-18.0)
[2018-04-11 00:10] LABS: Anisocytosis SLIGHT = 6-15 cells (100X) (0-5/hpf); Band 15 % (5-11); Eosinophils 10 % (0-10); Lymphocytes 15 % (21-51); MDiff Complete? YES; Mean Corpuscular HGB CONC 32.4 g/dL (32.0-36.0); Mean Corpuscular Hemoglobin 29.3 pg (27.0-31.0); Mean Corpuscular Volume 90.4 fL (78.0-98.0); Mean Platelet Volume 13.5 fL (7.4-10.4); Monocytes 9 % (0-10); Neutrophil 51 % (42-75); PLT Morphology Comment Appears Decreased; Platelet Count 68 thou/uL (130-400); RBC Distribution Width 16.3 % (11.5-14.5); Red Blood Cell (RBC) Count 3.49 mill/uL (4.70-6.10); White Blood Cell (WBC) Count 8.2 thou/uL (4.8-10.8)
== END 2018-04-10 23:34 | disposition home or self-care (01) ==
LOC: 2SW 14:06 → SDC/OP 14:06 → 2SW 14:06 → UNDOADMOB 14:06 → SDC/OP 23:34 → UNDODISOB 23:34
PROVIDERS: ATTEND Internal Medicine Hematology & Oncology
DX: C90.00 Multiple myeloma not having achieved remission (principal); D64.9 Anemia, unspecified; D69.6 Thrombocytopenia, unspecified; R11.2 Nausea with vomiting, unspecified
CPT/HCPCS: 36430; 80053; 82784 ×3; 84165; 85025; 86850; 86900; 86901; 86920; 86922; P9016; 36415

== ENCOUNTER 2018-04-25 13:32 | Observation (INO) | payer MEDICARE, BC ==
[2018-04-25 14:39] LABS: INR-International Normal Ratio 1.1; Prothrombin Time 14.2 SEC (12.0-14.7)
[2018-04-25 14:53] LABS: ALT (SGPT) 13 U/L (8-55); AST (SGOT) 22 U/L (5-34); Albumin 3.4 g/dL (3.4-4.8); Alkaline Phosphatase 144 U/L (40-150); Anion Gap 11 mmol/L (10-20); BUN (Urea Nitrogen) 18 mg/dL (8.4-25.7); Bilirubin, Total 0.6 mg/dL (0.2-1.2); Calc. Creatinine Clearance 0 mL/min (70-130); Carbon Dioxide 29 mmol/L (23-31); Chloride 103 mmol/L (98-107); Estimated GFR-MDRD 30; Glucose 111 mg/dL (80-115); Potassium 3.7 mmol/L (3.5-5.1); Protein, Total 6.4 g/dL (5.8-8.1); Sodium 139 mmol/L (136-145)
[2018-04-25 15:27] LABS: #Basophils 0.1 thou/uL (0.0-0.2); #Eosinphils 0.6 thou/uL (0.0-0.7); #Lymphocytes 1.4 thou/uL (1.20-3.40); #Monocytes 0.7 thou/uL (0.11-0.59); #Neutrophils 2.6 thou/uL (1.40-6.50); %Basophils 1.6 % (0.0-1.0); %Eosinophils 10.8 % (0.0-10.0); %Lymphocytes 25.8 % (21.0-51.0); %Monocytes 12.4 % (0.0-10.0); %Neutrophils 49.4 % (42.0-75.0); Hemoglobin 6.5 g/dL (14.0-18.0); Mean Corpuscular HGB CONC 32.6 g/dL (32.0-36.0); Mean Corpuscular Hemoglobin 29.3 pg (27.0-31.0); Mean Corpuscular Volume 89.8 fL (78.0-98.0); Mean Platelet Volume 12.2 fL (7.4-10.4); Platelet Count 122 thou/uL (130-400); RBC Distribution Width 16.6 % (11.5-14.5); Red Blood Cell (RBC) Count 2.22 mill/uL (4.70-6.10); White Blood Cell (WBC) Count 5.2 thou/uL (4.8-10.8)
[2018-04-25] MEDS ORDERED: Acetaminophen 325 MG TAB PO PRN (19:45)
[2018-04-25] MEDS ORDERED: Famotidine 20 MG TAB PO SCH (21:00)
[2018-04-26 02:41] VITALS: BMI 18.1
[2018-04-26] MEDS ORDERED: traMADol HCl 50 MG TAB PO PRN ×2 (04:49→09:50)
[2018-04-26] MEDS ORDERED: Lorazepam 1 MG TAB PO PRN ×2 (04:50→09:50)
[2018-04-26 05:18] LABS: Anion Gap 12 mmol/L (10-20); BUN (Urea Nitrogen) 29 mg/dL (8.4-25.7); Calc. Creatinine Clearance 13 mL/min (70-130); Calcium 8.4 mg/dL (7.8-10.44); Carbon Dioxide 25 mmol/L (23-31); Chloride 106 mmol/L (98-107); Estimated GFR-MDRD 20; Glucose 82 mg/dL (80-115); Potassium 3.9 mmol/L (3.5-5.1); Sodium 139 mmol/L (136-145)
[2018-04-26 07:00] LABS: #Basophils 0.1 thou/uL (0.0-0.2); #Eosinphils 0.5 thou/uL (0.0-0.7); #Lymphocytes 1.2 thou/uL (1.20-3.40); #Monocytes 0.7 thou/uL (0.11-0.59); #Neutrophils 2.6 thou/uL (1.40-6.50); %Basophils 1.2 % (0.0-1.0); %Eosinophils 10.3 % (0.0-10.0); %Lymphocytes 23.4 % (21.0-51.0); %Monocytes 14.7 % (0.0-10.0); %Neutrophils 50.5 % (42.0-75.0); Anisocytosis SLIGHT = 6-15 cells (100X) (0-5/hpf); Hemoglobin 7.7 g/dL (14.0-18.0); MDiff Complete? YES; Mean Corpuscular HGB CONC 32.8 g/dL (32.0-36.0); Mean Corpuscular Hemoglobin 29.9 pg (27.0-31.0); Mean Platelet Volume 10.2 fL (7.4-10.4); PLT Morphology Comment Appears Decreased; Platelet Count 90 thou/uL (130-400); RBC Distribution Width 14.8 % (11.5-14.5); Red Blood Cell (RBC) Count 2.57 mill/uL (4.70-6.10); White Blood Cell (WBC) Count 5.1 thou/uL (4.8-10.8)
[2018-04-26] MEDS ORDERED: Ferrous Sulfate 325 MG TAB PO SCH (08:00)
[2018-04-26] MEDS ORDERED: LENALIDOMIDE 5 MG PO SCH (09:00)
[2018-04-26] MEDS ORDERED: Carvedilol 3.125 MG TAB PO SCH ×2 (09:00→21:00)
[2018-04-26 15:37] VITALS: BP 132/67; TEMP 98.5
[2018-04-26 16:05] LABS: Hemoglobin 9.8 g/dL (14.0-18.0)
[2018-04-26] MEDS ORDERED: Mirtazapine 15 MG TAB PO SCH ×2 (21:00)
[2018-04-26] MEDS ORDERED: Non-Formulary Item 1 EACH (Atorvastatin Calcium [Lipitor] 80 MG) PO SCH (21:00)
[2018-04-26] MEDS ORDERED: Atorvastatin Calcium 40 MG TAB PO SCH (21:00)
[2018-04-26] MEDS ORDERED: Non-Formulary Item 1 EACH (Ferrous Sulfate [Ferrous Sulfate] 325 MG) PO SCH (21:00)
[2018-04-27] MEDS ORDERED: LENALIDOMIDE 5 MG PO SCH (09:00)
--- NOTE | 2018-04-28 00:46 | SS ---
DATE OF ADMISSION: 04/25/2018 DATE OF DISCHARGE: 04/26/2018 DISCHARGE DIAGNOSES: 1. Anemia. 2. History of multiple myeloma. 3. End-stage renal disease, on dialysis. HOSPITAL COURSE: The patient is a 72-year-old male who initially was sent to the hospital for a low H&H. The patient was found to have hemoglobin of 6.5. The patient did not get blood through dialysi s and was sent to the hospital for further evaluation. The patient was given 3 units of PRBCs. H&H was 9.8 upon discharge. The patient had a Hemoccult positive; however, the patient has had a signifi cant workup as an outpatient. Again, the patient will follow up with primary and Oncology as outpati ent. Discharge medications are as of the following: Tramadol 50 mg q.6 hours p.r.n., mirtazapine 1 at bed time, Ativan 1 t.i.d. p.r.n., Revlimid 5 mg p.o. daily, Coreg 3.125 p.o. b.i.d., atorvastatin 80 mg p .o. daily. Again, the patient was initially sent for abnormal labs. He had no symptoms at all. PAST MEDICAL HISTORY: As of the followin. History of multiple myeloma. 2. History of end-stage renal disease on dialysis. 3. Chronic anemia. 4. Bilateral lower extremity amputation. 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 He has had previous end oscopies, upper and lower endoscopies. MEDICATIONS: The patient takes. 1. Tramadol 50 mg q.6 hours p.r.n. 2. Mirtazapine 1 p.o. at bedtime. 3. Ativan 1 mg p.o. t.i.d. p.r.n. 4. Revlimid 5 mg p.o. daily. 5. Carvedilol 3.125 mg b.i.d. 6. Atorvastatin 80 mg p.o. at bedtime. ALLERGIES: PENICILLIN. SOCIAL HISTORY: He is a former smoker. Currently, denies any smoking, alcohol or drug use. PHYSICAL EXAMINATION: VITAL SIGNS: Temperature of 98.7, heart rate is 97% on room air. GENERAL: He is awake, alert. He does not appear in distress. CARDIOVASCULAR: S1, S2 present. No murmurs, rubs or gallops. ABDOMEN: Soft, nontender. Bowel sounds are present x2. He does have bilateral above the knee amput ation. SKIN: Intact and no cuts, lesions, or bruises noted. LABORATORY DATA: Again, his hemoglobin was 6.6. He was given 3 units of PRBCs. Also, he had a WBC of 5.2, platelets of 122. Chemistry indicated a sodium 139, potassium 3.7, creatinine of 2.56. The patient gets dialysis Saturday, Saturday, and Saturday. ASSESSMENT AND PLAN: 1. The patient is a very pleasant 72-year-old male who presents to the hospital for abnormal lab. 2. Anemia, most likely appears to be chronic. Will transfuse unit and check H&H post-transfusion. The patient gets dialysis Saturday, Saturday, and Saturday. Next dialysis is on Saturday. Patient maulik heard is asymptomatic. 3. End-stage renal disease. The patient gets dialyzed Saturday, Saturday, and Saturday. 4. Multiple myeloma. We will continue patient's home medications.
== END 2018-04-26 17:19 | disposition home or self-care (01) ==
LOC: ERS 13:32 → ONC 19:10
PROVIDERS: ADMIT Internal Medicine; ATTEND Internal Medicine
DX: D64.9 Anemia, unspecified (principal); N18.6 End stage renal disease; Z79.899 Other long term (current) drug therapy; Z87.891 Personal history of nicotine dependence; Z85.79 Personal history of other malignant neoplasms of lymphoid, hematopoietic and related tissues; Z99.2 Dependence on renal dialysis
CPT/HCPCS: 36430 ×2; 80048; 80053; 82274; 82728; 82962 ×2; 85014; 85018; 85025 ×2; 85610; 85730; 86850; 86900; 86901; 86920; 86922; 94760; 99285; G0378; P9016 ×2; 36415; 36416

== ENCOUNTER → 2018-05-06 | Day surgery (SDC) | payer MEDICARE, BC ==
[~2018-05-06] MED LIST: Acetaminophen 500 MG TAB PO SCH; diphenhydrAMINE 25 MG CAP PO SCH
[2018-05-06 13:28] LABS: Hemoglobin 8.5 g/dL (14.0-18.0)
[2018-05-06 15:45] VITALS: BP 134/68; TEMP 97.6
== END ==
LOC: RAD 10:36
PROVIDERS: ATTEND Internal Medicine Hematology & Oncology
PROC: 30233N1 Transfusion of Nonautologous Red Blood Cells into Peripheral Vein, Percutaneous Approach (ICD-10-PCS; principal; 2018-05-06)
DX: D64.9 Anemia, unspecified (principal); D69.6 Thrombocytopenia, unspecified
CPT/HCPCS: 36430; 85014; 85018; 86850; 86900; 86901; 86922; P9016

== ENCOUNTER 2018-05-31 07:50 | Inpatient (IN) | payer MEDICARE, BC ==
[2018-05-31 08:42] LABS: INR-International Normal Ratio 1.1; PTT 29.8 SEC (22.9-36.1); Prothrombin Time 13.9 SEC (12.0-14.7)
[2018-05-31 08:56] LABS: ALT (SGPT) 19 U/L (8-55); AST (SGOT) 24 U/L (5-34); Albumin 3.2 g/dL (3.4-4.8); Alkaline Phosphatase 167 U/L (40-150); Anion Gap 12 mmol/L (10-20); BUN (Urea Nitrogen) 41 mg/dL (8.4-25.7); Bilirubin, Total 0.5 mg/dL (0.2-1.2); Calc. Creatinine Clearance 0 mL/min (70-130); Calcium 8.8 mg/dL (7.8-10.44); Carbon Dioxide 23 mmol/L (23-31); Chloride 108 mmol/L (98-107); Estimated GFR-MDRD 15; Globulin 2.8 g/dL (2.4-3.5); Glucose 96 mg/dL (80-115); Potassium 4.7 mmol/L (3.5-5.1); Sodium 138 mmol/L (136-145)
[2018-05-31 09:09] LABS: Burr Cells SLIGHT = 2-5 cells (100X) (0-1/hpf); Eosinophils 4 % (0-10); Hemoglobin 5.7 g/dL (14.0-18.0); Hypochromia MODERATE=16-30 cells (100X) (0-5/hpf); Large Platelets SLIGHT; Lymphocytes 8 % (21-51); MDiff Complete? YES; Mean Corpuscular HGB CONC 30.9 g/dL (32.0-36.0); Mean Corpuscular Hemoglobin 28.8 pg (27.0-31.0); Mean Corpuscular Volume 93.2 fL (78.0-98.0); Mean Platelet Volume 12.6 fL (7.4-10.4); Microcytosis SLIGHT = 6-15 cells (100X) (0-5/hpf); Monocytes 20 % (0-10); Neutrophil 68 % (42-75); PLT Morphology Comment Appears Decreased; Platelet Count 115 thou/uL (130-400); RBC Distribution Width 15.9 % (11.5-14.5); Red Blood Cell (RBC) Count 1.98 mill/uL (4.70-6.10); Target Cells SLIGHT = 2-5 cells (100X) (0-1/hpf); White Blood Cell (WBC) Count 9.7 thou/uL (4.8-10.8)
[2018-05-31] MEDS ORDERED: Heparin 1,000 UNITS/ML VIAL ONE (11:11)
[2018-05-31 11:44] LABS: HBSAB Concentration 1.28 mIU/mL; HBSAg Index 0.19 S/CO (0-0.99); Hep B Surf AB Non-Reactive (NonReactive); Hep B Surf Ag Non-Reactive S/CO (NonReactive); Hep C IgG Ab Non-Reactive (NonReactive); Hep C Index 0.04 S/CO (0-0.79)
[2018-05-31] MEDS ORDERED: Pantoprazole 40 MG VIAL ONE (11:49)
[2018-05-31] MEDS ORDERED: Acetaminophen 500 MG TAB PO PRN (15:45)
[2018-05-31] MEDS ORDERED: Ondansetron ODT 4 MG TAB PO PRN (15:45)
[2018-05-31] MEDS ORDERED: cloNIDine 0.1 MG TAB PO PRN (15:45)
[2018-05-31] MEDS ORDERED: Ondansetron HCl/PF 4 MG/2 ML Vial IVP PRN (15:45)
[2018-05-31] MEDS ORDERED: hydrALAZINE 20 MG/ML VIAL SLOW IVP PRN (15:45)
[2018-05-31 16:25] LABS: Hemoglobin 8.3 g/dL (14.0-18.0); Platelet Count 87 thou/uL (130-400)
[2018-05-31] MEDS: Carvedilol 3.125 MG TAB PO SCH (20:01)
[2018-05-31] MEDS: Atorvastatin Calcium 40 MG TAB PO SCH (20:01)
[2018-05-31] MEDS: Famotidine 20 MG TAB PO SCH (20:01)
--- NOTE | 2018-05-31 22:20 | HP ---
DATE OF ADMISSION: 05/31/2018 PRIMARY CARE PHYSICIAN: Dr. Thomas. PRIMARY INFORMATION TECHNOLOGY ARCHITECT: Florencio Velez M.D. CHIEF COMPLAINT: Low blood count and blood in the stool. HISTORY OF PRESENT ILLNESS: This is a 72-year-old male who presents to [facility] Emergency Department with a hemoglobin initially noted at 6.3, currently 5.7 after a repeat i n the emergency room. The patient was instructed by his primary care provider to come to the emergen cy room for transfusion. The patient with longstanding history of anemia in the context of end-stage renal disease as well as multiple myeloma dating back over the last 3-4 years. The patient has had multiple transfusions with dialysis and underwent endoscopy including EGD and colonoscopy 05/2017 wit h negative findings. The patient does states he has noted blood in the stool over the last week inte rmittently and after eating. The patient states his appetite is good; however, he has early satiety. The patient denied any shortness of breath, chest pain, fever, chills, trauma, injury. The patient states he did receive a blood transfusion in the last month at [facility]. The patient sta kapil he has been compliant with his hemodialysis sessions and denies any increased swelling, shortness of breath, orthopnea. In the emergency room, the patient was noted with a hemoglobin of 5.7, previo usly 6.3. The patient was typed and crossed, receiving 2 units of packed red blood cells with hemodi alysis. The patient was also given Protonix 40 mg x1 dose. PAST MEDICAL HISTORY: 1. Acute on chronic normocytic anemia. 2. History of multiple packed red blood cell transfusions. 3. Anxiety/depression. 4. Dyslipidemia. 5. End-stage renal disease with hemodialysis. 6. Hypertension. 7. Multiple myeloma. 8. History of symptomatic anemia. PAST SURGICAL HISTORY: 1. Status post bilateral above the knee amputations. 2. Status post EGD and colonoscopy in 2017. 3. Status post AV fistula placement. CURRENT MEDICATIONS: 1. Tramadol 50 mg p.o. q.6 hours p.r.n. pain. 2. Mirtazapine 1 mg p.o. at bedtime. 3. Ativan 1 mg p.o. t.i.d. p.r.n. 4. Revlimid 5 mg p.o. daily. 5. Carvedilol 3.125 mg p.o. b.i.d. 6. Lipitor 80 mg p.o. at bedtime. ALLERGIES: PENICILLIN. FAMILY HISTORY: Positive for hypertension. SOCIAL HISTORY: Remote tobacco use, none currently. No alcohol or illicit drug use. Mobilizes with the use of a wheelchair. REVIEW OF SYSTEMS: The following complete review of systems was negative, unless otherwise mentioned in the HPI or below: Constitutional: Weight loss or gain, ability to conduct usual activities. Sk in: Rash, itching. Eyes: Double vision, pain. ENT/Mouth: Nose bleeding, neck stiffness, pain, te nderness. Cardiovascular: Palpitations, dyspnea on exertion, orthopnea. Respiratory: Shortness of breath, wheezing, cough, hemoptysis, fever or night sweats. Gastrointestinal: Poor appetite, abdom inal pain, heartburn, nausea, vomiting, constipation, or diarrhea. Genitourinary: Urgency, frequenc y, dysuria, nocturia. Musculoskeletal: Pain, swelling. Neurologic/Psychiatric: Anxiety, depressio n. Allergy/Immunologic: Skin rash, bleeding tendency. Otherwise negative except as stated per HPI. PHYSICAL EXAMINATION: VITAL SIGNS: On admission, blood pressure is 105/57, pulse 55, respiratory rate 20, temperature 97.9 degrees Fahrenheit, O2 saturation 100% on room air. GENERAL APPEARANCE: This is a 72-year-old male, alert and oriented x3, pleasant, co nversant, in no acute distress. HEENT: Pupils are equal, round and reactive to light and accommodation. Extraocular muscles are int act. No scleral icterus. No conjunctival injection. Nares patent. OP is clear. Teeth in fair rep air. NECK: Supple. No cervical adenopathy, no thyromegaly, no carotid bruits, no JVD appreciated. Cervi kevin spine with full active and passive range of motion. No meningeal signs noted. CHEST: Lungs are clear to auscultation bilaterally. CARDIOVASCULAR: S1, S2 with 3/6 systolic ejection murmur in the right upper sternal border. ABDOMEN: Rounded, soft, nontender, nondistended. Bowel sounds are positive in all four quadrants. There is no hepatosplenomegaly, no abdominal bruits, no rebound or guarding appreciated. EXTREMITIES: Warm and dry with fair turgor. Bilateral lower extremity amputations noted. Stumps in tact. No asymmetric edema appreciated. Right upper extremity with AV fistula in place. NEUROLOGIC: Cranial nerves II-XII are grossly intact. No focal or lateralizing signs appreciated. PERTINENT LABORATORY AND X-RAY FINDINGS: Sodium 138, potassium 4.7, chloride 108, CO2 of 23, BUN 41, creatinine 4.62, estimated GFR of 15, glucose 96, calcium 8.8. AST 24, ALT of 19, alkaline phosphat ase 167, albumin 3.2. CBC showed a white blood cell count of 9.7, hemoglobin 5.7, previously noted 8 .59 on 05/06/2018, MCV 93, platelet count 115,000 with 68% neutrophils. PT 13.9, INR 1.1, PTT 29.8. Hepatitis B and C panel negative. Stool Hemoccult positive x1 05/31/2018. ASSESSMENT AND PLAN: 1. Acute on chronic normocytic anemia, symptomatic. The patient will be admitted to the telemetry u nit. Recurrent anemia with guaiac positive stool. We will consult GI service for further recommenda tions. Continue Pepcid 20 mg p.o. b.i.d. Status post 2 units of packed red blood cells with hemodia lysis. 2. End-stage renal disease with hemodialysis. Continue hemodialysis per Nephrology recommendations. Currently receiving hemodialysis and receiving a second unit of packed red blood cells. 3. Multiple myeloma. Suspect component of recurrent anemia necessitating packed red blood cells. R epeat CBC in the a.m. 4. Hypertension. Continue home regimen of carvedilol 3.125 mg b.i.d. Serial blood pressure monitor ing. 5. Prophylaxis. SCDs held due to lower extremity amputations. Pepcid 20 mg p.o. b.i.d. 6. Code status is full. Surrogate medical decision maker not identified.
--- NOTE | 2018-06-01 01:28 | CON ---
DATE OF CONSULTATION: 05/31/2018 REFERRING PHYSICIAN: Albert Acuña D.O. REASON FOR CONSULTATION: Symptomatic anemia, history of black tarry stool over the last 7 days. HISTORY OF PRESENT ILLNESS: Mr. Min Espino is a 72-year-old fragile-looking, -Azerbaijani mal e, who has history of chronic kidney disease, on dialysis. The patient apparently had dialysis on and was found to have anemia. The patient was advised to come to the ER for evaluation and treatment. The patient gives history of black tarry stools, which started approximately a week ago. He was having multiple loose black stool. He was going to bathroom as much as 8-9 times a day. The patient had about 5 or 6 stools yesterday. Today, he had no stools for the whole day. I saw him ar ound 5:00 this afternoon and he has had no stool. He has no abdominal pain, no nausea, no vomiting. During evaluation in the ER, he was found to have profound anemia. He has been transfused with 2 un its of blood. The CBC today showed a WBC of 9700, RBC 1.98, hemoglobin 5.7, hematocrit 18.4, MCV 93. 2. Today, after 2 units of blood, blood count came up to 8.3, hematocrit 24.3. The patient denies a ny abdominal pain, nausea, vomiting, dyspepsia. However, he has been feeling fatigued and tired over the last several days because of what appears to be bleeding. The patient had seen Dr. Tyrese Morgan in the past. Going over the electronic medical records, the patient was hospitalized in 06/14 17 with similar episode of anemia. He was seen by Dr. Tyrese Morgan and underwent EGD and a col onoscopy on 06/13/2017. As per the operative report by Dr. Tyrese Morgan, the exam was done to third part of duodenum and no pathology seen. After the colonoscopy, there was a report that the col onoscopy was completely normal, no hemorrhoids, and no other pathology seen. As per Dr. Morgan on ad mitting history and physical in 2016, apparently the patient has had some episodes of anemia in the p ast. In 2013, he had a negative colonoscopy and negative EGD. Apparently, he had a capsule endoscop y in his office and there is some evidence of some blood seen in the small bowel. Apparently, the pa marie has had similar episodes in the past off and on. The last time he had black tarry stool and an emia was approximately a year ago in 05/2017. At the present time, the patient denies abdominal pain , nausea, or vomiting. There is no history of dysphagia or odynophagia. He has no other relevant hi story. MEDICAL ILLNESSES: 1. Chronic kidney disease, on dialysis 3 times a week. 2. Chronic anemia. 3. Multiple myeloma. 4. Recurrent anemia and blood loss with negative workup in the past. The patient has no other relev ant symptoms. ALLERGIES: PENICILLIN. SOCIAL HISTORY: The patient is a former smoker. He does not smoke anymore. No history of alcohol a buse. No history of drug abuse. PAST SURGICAL HISTORY: 1. Bilateral above-knee amputation. 2. Previous EUS with biopsy of retroperitoneal mass, which was hematoma. 3. Previous EGD, colonoscopy, and capsule endoscopy. FAMILY HISTORY: . There is no family history of cancer, stroke, heart disease, or lung disease . MEDICATIONS: List reviewed. REVIEW OF SYSTEMS: Ten-point system review: Constitutional: No history of fever. No anorexia. No weight loss. Respiratory System: No history of chronic cough, hemoptysis, dyspnea. Cardiovascular System: No chest pain, no palpitation. He is not ambulatory and it is difficult to say whether he is dyspneic. However, he has no history of orthopnea or PND. Gastrointestinal: He has history of l oose stools over the last 7 days and stools are black and tarry. No abdominal pain, no nausea, no vo miting. Genitourinary: Unremarkable. Neuropsychiatric: Unremarkable. PHYSICAL EXAMINATION: GENERAL: He is a fragile-looking -Azerbaijani male, appears very comfortable. He is awake, aler t, and communicative. He is oriented to time, place, and person. He is in no distress. VITAL SIGNS: Temperature 98 degrees Fahrenheit, pulse is 56, blood pressure is 128/61. HEENT: Conjunctivae clear. NECK: Supple. No adenitis or thyromegaly noted. CARDIOVASCULAR SYSTEM: First and second heart sounds normal. LUNGS: Clear to auscultation. ABDOMEN: Soft. Abdomen is nondistended. Abdomen is nontender. There is no organomegaly or masses. Bowel sounds normal. CLINICAL IMPRESSION: 1. A 72-year-old -A[place] male with a history of melena over the last 7 days. The patient i s profoundly anemic. He has been transfused. He is feeling better after transfusion. The patient h ad similar episodes of anemia in 2013 and 2016. Most recent endoscopy done by Dr. Morgan in 2017, ap proximately a year ago, showed no pathology in the upper GI tract. He also had a negative colonoscop y. 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 There is men tion of a positive capsule study in 2013, but there is no mention of any enteroscopy. 2. Chronic kidney disease. 3. Multiple myeloma. 4. Recurrent anemia. 5. Bilateral above-knee amputation. 6. Chronic kidney disease, on dialysis. RECOMMENDATIONS: 1. Follow up H&H. 2. Transfuse p.r.n. 3. I will plan for EGD tomorrow morning and I will make further recommendations.
[2018-06-01 05:52] LABS: ALT (SGPT) 16 U/L (8-55); AST (SGOT) 22 U/L (5-34); Albumin 3.2 g/dL (3.4-4.8); Alkaline Phosphatase 151 U/L (40-150); Anion Gap 10 mmol/L (10-20); BUN (Urea Nitrogen) 25 mg/dL (8.4-25.7); Bilirubin, Total 0.8 mg/dL (0.2-1.2); Calc. Creatinine Clearance 12 mL/min (70-130); Calcium 8.6 mg/dL (7.8-10.44); Carbon Dioxide 30 mmol/L (23-31); Chloride 102 mmol/L (98-107); Estimated GFR-MDRD 20; Globulin 2.5 g/dL (2.4-3.5); Glucose 80 mg/dL (80-115); Potassium 3.9 mmol/L (3.5-5.1); Protein, Total 5.7 g/dL (5.8-8.1); Sodium 138 mmol/L (136-145)
[2018-06-01 06:20] LABS: Band 1 % (5-11); Eosinophils 6 % (0-10); Hemoglobin 8.8 g/dL (14.0-18.0); Lymphocytes 75 % (21-51); MDiff Complete? YES; Mean Corpuscular HGB CONC 31.5 g/dL (32.0-36.0); Mean Corpuscular Hemoglobin 29.8 pg (27.0-31.0); Mean Corpuscular Volume 94.6 fL (78.0-98.0); Mean Platelet Volume 11.8 fL (7.4-10.4); Monocytes 13 % (0-10); Neutrophil 4 % (42-75); PLT Morphology Comment Appears Decreased; Platelet Count 106 thou/uL (130-400); RBC Distribution Width 15.9 % (11.5-14.5); RBC Morphology Normal; Reactive Lymphocytes 1 % (0-10); Red Blood Cell (RBC) Count 2.97 mill/uL (4.70-6.10); White Blood Cell (WBC) Count 8.9 thou/uL (4.8-10.8)
[2018-06-01] MEDS ORDERED: traMADol HCl 50 MG TAB PO PRN (07:20)
[2018-06-01] MEDS ORDERED: Lorazepam 1 MG TAB PO PRN (07:20)
[2018-06-01] MEDS ORDERED: Ondansetron ODT 4 MG TAB PO PRN (07:30)
[2018-06-01] MEDS ORDERED: Ondansetron HCl/PF 4 MG/2 ML Vial IVP PRN (08:36)
[2018-06-01] MEDS ORDERED: IXAZOMIB CITRATE 3 MG PO SCH (09:00)
[2018-06-01] MEDS: Ferrous Sulfate 325 MG TAB PO SCH ×2 (09:00→21:08)
[2018-06-01] MEDS ORDERED: Lenalidomide [Revlimid] 5 MG PO SCH (09:00)
[2018-06-01] MEDS: Carvedilol 3.125 MG TAB PO SCH ×2 (09:00→21:07)
--- NOTE | 2018-06-01 10:31 | PDOC.PN ---
- Subjective Encounter Start Date: 06/01/18 Encounter Start Time: 07:40 -: old records requested/rev Patient seen and examined. No new complaints. No overnight events - Objective Resuscitation Status: Resuscitation Status FULL:Full Resuscitation MAR Reviewed: Yes Vital Signs & Weight: Vital Signs (12 hours) Temp Pulse Resp BP Pulse Ox 06/01/18 08:00 98.2 F 06/01/18 07:59 98 06/01/18 07:10 52 L 14 106/58 L 98 06/01/18 04:00 98.3 F 59 L 14 106/60 97 06/01/18 00:10 106/60 Weight Weight 94 lb 9.6 oz Most Recent Monitor Data Heart Rate from ECG 51 NIBP 108/55 I&O: 05/31/18 06/01/18 06/02/18 06:59 06:59 06:59 Intake Total 1190 Output Total 1020 Balance 170 Result Diagrams: 06/01/18 05:04 06/01/18 05:04 EKG Reviewed by me: Yes Phys Exam - Physical Examination Constitutional: NAD HEENT: PERRLA, moist MMs, sclera anicteric Neck: no JVD, supple Respiratory: no wheezing, no rales, no rhonchi Cardiovascular: RRR, no significant murmur, no rub Gastrointestinal: soft, non-tender, no distention, positive bowel sounds bilateral BKA Neurological: non-focal, normal sensation Lymphatic: no nodes Psychiatric: normal affect, A&O x 3 Skin: no rash, normal turgor Dx/Plan (1) Symptomatic anemia Code(s): D64.9 - ANEMIA, UNSPECIFIED Status: Acute (2) Anemia Code(s): D64.9 - ANEMIA, UNSPECIFIED Status: Chronic (3) Anxiety and depression Code(s): F41.8 - OTHER SPECIFIED ANXIETY DISORDERS Status: Chronic (4) Dyslipidemia Code(s): E78.5 - HYPERLIPIDEMIA, UNSPECIFIED Status: Chronic (5) ESRD (end stage renal disease) on dialysis Code(s): N18.6 - END STAGE RENAL DISEASE; Z99.2 - DEPENDENCE ON RENAL DIALYSIS Status: Chronic Comment: On HD per Dr Velez (6) HTN (hypertension) Code(s): I10 - ESSENTIAL (PRIMARY) HYPERTENSION Status: Chronic (7) Hx of below knee amputation Code(s): Z89.519 - ACQUIRED ABSENCE OF UNSPECIFIED LEG BELOW KNEE Status: Chronic (8) Multiple myeloma Code(s): C90.00 - MULTIPLE MYELOMA NOT HAVING ACHIEVED REMISSION Status: Chronic (9) PVD (peripheral vascular disease) Code(s): I73.9 - PERIPHERAL VASCULAR DISEASE, UNSPECIFIED Status: Chronic - Plan cont current plan of care * today EGD * will benefit with procrit with HD * medication reviewed as below * symptomatic treatment * repeat labs tomorrow * selected home medication restarted. Review of Systems - Review of Systems ENT: negative: Ear Pain, Ear Discharge, Nose Pain, Nose Discharge, Nose Congestion, Mouth Pain, Mouth Swelling, Throat Pain, Throat Swelling, Other Respiratory: negative: Cough, Dry, Shortness of Breath, Hemoptysis, SOB with Excertion, Pleuritic Pain, Sputum, Wheezing Cardiovascular: negative: chest pain, palpitations, orthopnea, paroxysmal nocturnal dyspnea, edema, light headedness, other Gastrointestinal: negative: Nausea, Vomiting, Abdominal Pain, Diarrhea, Constipation, Melena, Hematochezia, Other Genitourinary: negative: Dysuria, Frequency, Incontinence, Hematuria, Retention , Other Musculoskeletal: negative: Neck Pain, Shoulder Pain, Arm Pain, Back Pain, Hand Pain, Leg Pain, Foot Pain, Other - Medications/Allergies Allergies/Adverse Reactions: Allergies Allergy/AdvReac Type Severity Reaction Status Date / Time Lincosamides Allergy Verified 05/31/18 18:46 Penicillins Allergy "swells, Verified 04/10/18 14:45 can't breathe" Medications: Current Medications Acetaminophen (Tylenol) 1,000 mg PO Q6H PRN PRN Reason: Headache/Fever or Mild Pain Atorvastatin Calcium (Lipitor) 80 mg PO HS [facility] Last Admin: 05/31/18 20:01 Dose: 80 mg Carvedilol (Coreg) 3.125 mg PO BID [facility] Last Admin: 05/31/18 20:01 Dose: 3.125 mg Clonidine (Catapres) 0.1 mg PO Q4H PRN PRN Reason: Systolic BP > 180 Famotidine (Pepcid) 20 mg PO Q24HR [facility] Last Admin: 05/31/18 20:01 Dose: 20 mg Fentanyl (Pacu-Sublimaze) 50 mcg SLOW IVP Q10MIN PRN PRN Reason: Moderate to Severe Pain (6-10) Stop: 10/07/18 11:36 Ferrous Sulfate (Feosol) 325 mg PO BID [facility] Hydralazine HCl (Apresoline) 10 mg SLOW IVP Q4H PRN PRN Reason: Systolic BP > 180 Lorazepam (Ativan) 1 mg PO TID PRN PRN Reason: Anxiety Mirtazapine (Remeron) 15 mg PO HS [facility]ON Ondansetron HCl (Zofran) 4 mg IVP Q6H PRN PRN Reason: Nausea/Vomiting Ondansetron HCl (Zofran Odt) 4 mg PO TIDPRN PRN PRN Reason: Nausea/Vomiting Ondansetron HCl (Pacu-Zofran) 4 mg IVP ONE PRN PRN Reason: Nausea/Vomiting Stop: 06/01/18 11:36 Lenalidomide [ (Revlimid] 5 Mg) 0 each PO DAILY [facility] (Ixazomib Citrate [ Ninlaro] 3 Mg) Hm Med 0 each PO DAILY [facility] Tramadol HCl (Ultram) 50 mg PO Q6H PRN PRN Reason: Pain
[2018-06-01] MEDS ORDERED: Epoetin (ESRD) 20,000 UNITS/ML SC SCH (12:00)
[2018-06-01 14:15] LABS: Mean Corpuscular HGB CONC 32.2 g/dL (32.0-36.0); Mean Corpuscular Hemoglobin 29.1 pg (27.0-31.0); Mean Corpuscular Volume 90.2 fL (78.0-98.0); Mean Platelet Volume 8.9 fL (7.4-10.4); Platelet Count 71 thou/uL (130-400); RBC Distribution Width 14.6 % (11.5-14.5); Red Blood Cell (RBC) Count 3.77 mill/uL (4.70-6.10); White Blood Cell (WBC) Count 6.2 thou/uL (4.8-10.8)
[2018-06-01 14:38] LABS: Reticulocyte Count 1.6 % (0.5-1.5)
[2018-06-01 14:40] LABS: #Eosinphils 0.3 thou/uL (0.0-0.7); #Lymphocytes 0.8 thou/uL (1.20-3.40); #Monocytes 0.7 thou/uL (0.11-0.59); #Neutrophils 4.4 thou/uL (1.40-6.50); %Basophils 0.2 % (0.0-1.0); %Eosinophils 4.5 % (0.0-10.0); %Lymphocytes 12.5 % (21.0-51.0); %Neutrophils 70.9 % (42.0-75.0); MDiff Complete? YES; PLT Morphology Comment Appears Decreased; Polychromasia SLIGHT = 2-3 cells (100X) (0-2/hpf)
[2018-06-01] MEDS ORDERED: Lidocaine 1% PF 5 ML VIAL ONE (14:42)
[2018-06-01] MEDS ORDERED: PROPOFOL 200 MG/20 ML VIAL ONE (14:42)
[2018-06-01 19:23] LABS: Bacteria/HPF None Seen HPF (None Seen); Hyaline Casts/LPF 4-6 HYALINE CAST LPF (0-3 Hyaline); Squamous Epithelial 0-3 HPF (0-3); WBC/HPF 0-3 HPF (0-3)
[2018-06-01 19:30] LABS: Clarity Clear (Clear); Glucose, Urine (Dipstick) 100 mg/dL (Negative); Leukocyte Negative (Negative); Nitrite Negative (Negative); Protein, Urine (Dipstick) > or equal to 300 mg/dL (Neg-Trace); Specific Gravity, Urine 1.017 (1.002-1.036); Urobilinogen 0.2 mg/dL (0.2-1.0); pH, Urine 7.5 (5.0-9.0)
[2018-06-01 19:31] LABS: Bilirubin Negative (Negative); Blood, Urine Small (Negative)
[2018-06-01] MEDS ORDERED: Mirtazapine 15 MG TAB PO SCH (21:00)
[2018-06-01] MEDS: Atorvastatin Calcium 40 MG TAB PO SCH (21:07)
[2018-06-01] MEDS: Famotidine 20 MG TAB PO SCH (21:08)
--- NOTE | 2018-06-01 21:29 | OP ---
DATE OF PROCEDURE: 06/01/2018 PROCEDURE: Esophagogastroduodenoscopy with 7-Chinese heater probe therapy. PREOPERATIVE DIAGNOSES: A 72-year-old -[place] male with melena, anemia due to blood loss. The patient underwent esophagogastroduodenoscopy. POSTOPERATIVE DIAGNOSES: 1. Normal esophageal mucosa. 2. Hiatus hernia. 3. Normal gastric fundus and proximal gastric body. 4. Gastric area over the gastric antrum with mild oozing of blood with multiple hemorrhagic areas __ ___ most likely represent scope induced trauma. 5. Normal duodenum. The exam was done to the third and fourth part. PROCEDURE IN DETAIL: The patient was placed on his left lateral position and was given sedation by A nesthesia Department. A Pentax video gastroscope under direct vision was passed down the oropharynx, past the GE junction, into the stomach and subsequently into the descending duodenum. The esophagus mucosa appeared normal. The GE junction, no pathology seen. Retroflexion showed a moderate size hi atus hernia. The fundus, cardia, gastric body, no pathology seen. The mucosa appears normal. The p atient found to have AVM with mild oozing of blood over the gastric antrum. The incisural angularis, no pathology seen. The scope advanced into the duodenal bulb and descending duodenum and . T here is no pathology seen in the duodenum. When the gastroscope was withdrawn back to stomach, there were multiple hemorrhagic areas seen in the gastric body, most likely represent scope induced trauma . There is no active bleeding seen. The AVM which was noted having mild oozing of blood was cauteri zed with 7-Chinese heater probe with good hemostasis. The stomach was decompressed and the scope judy yara. RECOMMENDATIONS: 1. Renal diet. 2. Follow up H&H. 3. Transfuse as needed.
[2018-06-02 05:50] LABS: Albumin 2.9 g/dL (3.4-4.8); Anion Gap 12 mmol/L (10-20); BUN (Urea Nitrogen) 19 mg/dL (8.4-25.7); BUN/Creatinine Ratio 5.69; Calc. Creatinine Clearance 12 mL/min (70-130); Calcium 8.6 mg/dL (7.8-10.44); Carbon Dioxide 27 mmol/L (23-31); Chloride 102 mmol/L (98-107); Estimated GFR-MDRD 22; Glucose 80 mg/dL (80-115); Phosphorus 2.4 mg/dL (2.3-4.7); Potassium 3.6 mmol/L (3.5-5.1); Sodium 137 mmol/L (136-145)
[2018-06-02 06:38] LABS: Band 1 % (5-11); Hemoglobin 10.8 g/dL (14.0-18.0); Hypochromia SLIGHT = 6-15 cells (100X) (0-5/hpf); Lymphocytes 15 % (21-51); MDiff Complete? YES; Mean Corpuscular HGB CONC 32.6 g/dL (32.0-36.0); Mean Corpuscular Hemoglobin 30.1 pg (27.0-31.0); Mean Corpuscular Volume 92.5 fL (78.0-98.0); Mean Platelet Volume 12.5 fL (7.4-10.4); Monocytes 3 % (0-10); Neutrophil 81 % (42-75); PLT Morphology Comment Appears Decreased; Platelet Count 86 thou/uL (130-400); RBC Distribution Width 14.8 % (11.5-14.5); Red Blood Cell (RBC) Count 3.58 mill/uL (4.70-6.10); White Blood Cell (WBC) Count 8.7 thou/uL (4.8-10.8)
--- NOTE | 2018-06-02 10:46 | PDOC.PN ---
- Subjective Encounter Start Date: 06/02/18 Encounter Start Time: 07:40 Patient seen and examined. No new complaints. No overnight events - Objective Resuscitation Status: Resuscitation Status FULL:Full Resuscitation MAR Reviewed: Yes Vital Signs & Weight: Vital Signs (12 hours) Temp Pulse Resp BP Pulse Ox 06/02/18 07:25 98.2 F 55 L 14 128/67 100 06/02/18 04:21 96 06/02/18 03:05 98.1 F 57 L 13 108/62 96 Weight Weight 84 lb 6.993 oz Most Recent Monitor Data Heart Rate from ECG 51 NIBP 108/55 I&O: 06/01/18 06/02/18 06/03/18 06:59 06:59 06:59 Intake Total 1190 650 Output Total 1020 1050 Balance 170 -400 Result Diagrams: 06/02/18 05:19 06/02/18 05:19 EKG Reviewed by me: Yes Phys Exam - Physical Examination Constitutional: NAD HEENT: PERRLA, moist MMs, sclera anicteric Neck: no JVD, supple Respiratory: no wheezing, no rales, no rhonchi Cardiovascular: RRR, no significant murmur, no rub Gastrointestinal: soft, non-tender, no distention, positive bowel sounds bL BKA Neurological: non-focal Lymphatic: no nodes Psychiatric: normal affect, A&O x 3 Skin: no rash, normal turgor Dx/Plan (1) Symptomatic anemia Code(s): D64.9 - ANEMIA, UNSPECIFIED Status: Acute (2) Anemia Code(s): D64.9 - ANEMIA, UNSPECIFIED Status: Chronic (3) Anxiety and depression Code(s): F41.8 - OTHER SPECIFIED ANXIETY DISORDERS Status: Chronic (4) Dyslipidemia Code(s): E78.5 - HYPERLIPIDEMIA, UNSPECIFIED Status: Chronic (5) ESRD (end stage renal disease) on dialysis Code(s): N18.6 - END STAGE RENAL DISEASE; Z99.2 - DEPENDENCE ON RENAL DIALYSIS Status: Chronic Comment: On HD per Dr Velez (6) HTN (hypertension) Code(s): I10 - ESSENTIAL (PRIMARY) HYPERTENSION Status: Chronic (7) Hx of below knee amputation Code(s): Z89.519 - ACQUIRED ABSENCE OF UNSPECIFIED LEG BELOW KNEE Status: Chronic (8) Multiple myeloma Code(s): C90.00 - MULTIPLE MYELOMA NOT HAVING ACHIEVED REMISSION Status: Chronic (9) PVD (peripheral vascular disease) Code(s): I73.9 - PERIPHERAL VASCULAR DISEASE, UNSPECIFIED Status: Chronic - Plan cont current plan of care * medication reviewed as below * symptomatic treatment * see discharge chrisy. Review of Systems - Review of Systems Eyes: negative: Pain, Vision Change, Conjunctivae Inflammation, Eyelid Inflammation, Redness, Other ENT: negative: Ear Pain, Ear Discharge, Nose Pain, Nose Discharge, Nose Congestion, Mouth Pain, Mouth Swelling, Throat Pain, Throat Swelling, Other Respiratory: negative: Cough, Dry, Shortness of Breath, Hemoptysis, SOB with Excertion, Pleuritic Pain, Sputum, Wheezing Cardiovascular: negative: chest pain, palpitations, orthopnea, paroxysmal nocturnal dyspnea, edema, light headedness, other Gastrointestinal: negative: Nausea, Vomiting, Abdominal Pain, Diarrhea, Constipation, Melena, Hematochezia, Other Genitourinary: negative: Dysuria, Frequency, Incontinence, Hematuria, Retention , Other - Medications/Allergies Allergies/Adverse Reactions: Allergies Allergy/AdvReac Type Severity Reaction Status Date / Time Lincosamides Allergy Verified 05/31/18 18:46 Penicillins Allergy "swells, Verified 04/10/18 14:45 can't breathe" Medications: Current Medications Acetaminophen (Tylenol) 1,000 mg PO Q6H PRN PRN Reason: Headache/Fever or Mild Pain Atorvastatin Calcium (Lipitor) 80 mg PO HS [facility] Last Admin: 06/01/18 21:07 Dose: 80 mg Carvedilol (Coreg) 3.125 mg PO BID [facility] Last Admin: 06/01/18 21:07 Dose: 3.125 mg Clonidine (Catapres) 0.1 mg PO Q4H PRN PRN Reason: Systolic BP > 180 Famotidine (Pepcid) 20 mg PO Q24HR [facility] Last Admin: 06/01/18 21:08 Dose: 20 mg Ferrous Sulfate (Feosol) 325 mg PO BID [facility] Last Admin: 06/01/18 21:08 Dose: 325 mg Hydralazine HCl (Apresoline) 10 mg SLOW IVP Q4H PRN PRN Reason: Systolic BP > 180 Lorazepam (Ativan) 1 mg PO TID PRN PRN Reason: Anxiety Mirtazapine (Remeron) 15 mg PO HS [facility] Last Admin: 06/01/18 21:08 Dose: 15 mg Ondansetron HCl (Zofran) 4 mg IVP Q6H PRN PRN Reason: Nausea/Vomiting Ondansetron HCl (Zofran Odt) 4 mg PO TIDPRN PRN PRN Reason: Nausea/Vomiting Lenalidomide [ (Revlimid] 5 Mg) 0 each PO DAILY [facility] (Ixazomib Citrate [ Ninlaro] 3 Mg) Hm Med 0 each PO DAILY [facility] Tramadol HCl (Ultram) 50 mg PO Q6H PRN PRN Reason: Pain
--- NOTE | 2018-06-02 12:07 | DIS ---
DATE OF ADMISSION: 05/31/2018 DATE OF DISCHARGE: 06/02/2018 PRIMARY CARE PHYSICIAN: Kali Thomas MD DISCHARGE DISPOSITION: Home. PRIMARY DISCHARGE DIAGNOSES: Symptomatic anemia, status post 4-unit blood transfusion. SECONDARY DISCHARGE DIAGNOSES: Peripheral vascular disease; bilateral below-knee amputation; multipl e myeloma; hypertension; end-stage renal disease, on hemodialysis; dyslipidemia; anxiety and depressi on. PRIMARY PROCEDURE/OPERATION: Upper endoscopy was performed by Dr. Monae, which did not show any acute process; showed a mild hiatal hernia. RADIOLOGICAL INVESTIGATION: None. SIGNIFICANT LABORATORY DATA: WBC 8.7, hemoglobin 10.8, platelets 86. INR 1.1. Sodium 137, creatini ne 3.34. Phosphorus 2.4. LDH 175, albumin 2.9. Urinalysis, proteinuria. Hepatitis profile negativ e. Stool for occult blood positive. DISCHARGE MEDICATIONS: Tramadol 50 mg p.o. q.6 hourly p.r.n., Decadron 10 mg every 7 days, lenalidom simone 5 mg p.o. every 7 days, Coreg 3.125 mg p.o. b.i.d., ferrous sulfate 325 mg p.o. b.i.d., Ninlaro 3 mg p.o. daily, Ativan 1 mg p.o. t.i.d. p.r.n., Remeron 15 mg p.o. at bedtime, Zofran 4 mg t.i.d. p.r .n., Lipitor 80 mg p.o. at bedtime, Protonix 40 mg p.o. daily. CONTRAINDICATIONS: None. CODE STATUS: FULL CODE. INPATIENT CONSULTANTS: Dr. Monae was consulted while in hospital, who did upper endoscopy. Dr. Florencio Velez, [employer], was doing dialysis while in hospital. TEST RESULTS PENDING ON DISCHARGE: None. ALLERGIES: LINCOSAMIDES and PENICILLIN. DISCHARGE PLAN: Post hospital, the patient is instructed to follow up with primary care physician in 1 week. The patient is also instructed to follow up with Oncology, GI, and Nephrology as instructed. HOSPITAL COURSE: This is a 72-year-old male, who has above-mentioned medical problem, who was admitt ed by Dr. Acuña on 05/31/2018. Please see his H and P for further detail. This patient was having fa tigue, dyspnea, weakness. He was found with a hemoglobin of 5.7. His stool for guaiac was positive. He has underlying renal failure and multiple myeloma. We suspected multifactorial etiology of anem ia. He was given total of 4 units of blood transfusion while in hospital. He also received maintena nce hemodialysis while in hospital. GI was on the case and they did upper endoscopy. They did not f ind any acute process. While in hospital, we gave him Procrit as well. This patient will benefit fr Procrit with dialysis periodically. The patient will continue all his previous medication upon di scharjoe. The patient is seen and examined at bedside today. Overall, the patient is medically stable for disc harge today. Please see my progress note from today for further detail.
[2018-06-02] MEDS: Carvedilol 3.125 MG TAB PO SCH (13:44)
[2018-06-02] MEDS: Ferrous Sulfate 325 MG TAB PO SCH (13:44)
[2018-06-02 13:47] VITALS: BMI 13.6
--- NOTE | 2018-06-02 14:02 | PRG ---
DATE OF SERVICE: 06/02/2018 Mr. Espino is eating sitting up in bed. He is feeling well. He had endoscopy yesterday with some c autery of some raw friable areas in the stomach. PHYSICAL EXAMINATION: VITAL SIGNS: Temperature is 98, pulse 56, blood pressure 121/61. LABORATORY STUDIES: Hemoglobin is 10.8 today, white count 8.7, platelet count 86,000. He received 2 units of blood on the 6th and 2 on the 7th. ASSESSMENT: Chronic anemia is felt to be multifactorial. He has had some AVMs noted in the small emile wel on capsule endoscopies. He had a negative CT enterography and a negative deep enteroscopy with a colonoscope here. We had talked about sending him to [place] in the past for a deep either balloon or spherous enteroscopy and cautery; however, to date, he has been able to be managed with IV and ora l iron supplementation, PPI therapy. PLAN: The patient is being discharged home today by the Hospitalist to follow up with his oncologist and behavioral health case manager. We will ask him to follow up with me in 2 weeks. I will have my office call him tomorrow to set that up.
[2018-06-02 15:50] VITALS: BP 103/64; TEMP 98
== END 2018-06-02 15:40 | disposition home or self-care (01) | DRG 811 ==
LOC: ERS 07:50 → 2NO 12:34
PROVIDERS: ADMIT Family Medicine; ATTEND Family Medicine
PROC: 30233N1 Transfusion of Nonautologous Red Blood Cells into Peripheral Vein, Percutaneous Approach (ICD-10-PCS; principal; 2018-05-31)
PROC: 0D568ZZ Destruction of Stomach, Via Natural or Artificial Opening Endoscopic (ICD-10-PCS; 2018-06-01)
DX: D64.89 Other specified anemias (principal); N18.6 End stage renal disease; I12.0 Hypertensive chronic kidney disease with stage 5 chronic kidney disease or end stage renal disease; C90.00 Multiple myeloma not having achieved remission; Z99.2 Dependence on renal dialysis; D50.0 Iron deficiency anemia secondary to blood loss (chronic); F41.8 Other specified anxiety disorders; E78.5 Hyperlipidemia, unspecified; I73.9 Peripheral vascular disease, unspecified; Z89.512 Acquired absence of left leg below knee; Z89.511 Acquired absence of right leg below knee; K44.9 Diaphragmatic hernia without obstruction or gangrene
CPT/HCPCS: 36415; 36430; 80053; 80069; 81001; 82274; 83010; 83051; 83615; 85007; 85025; 85027; 85046; 85610; 85730; 86706; 86803; 86850; 86880; 86900; 86901; 86922; 87340; 90935; 96374; C9113; G0257; J1644; J2001; J2704; P9016; Q4081

== ENCOUNTER 2018-06-26 10:41 | Day surgery (SDC) | payer MEDICARE, BC ==
[2018-06-26] MEDS ORDERED: Sodium Chloride 0.9% 40 ML ONE (10:49)
[2018-06-26] MEDS ORDERED: Acetaminophen 500 MG TAB PO SCH (11:00)
[2018-06-26] MEDS ORDERED: diphenhydrAMINE 25 MG CAP PO SCH (11:00)
[2018-06-26 16:11] VITALS: TEMP 97.9
[2018-06-26 16:14] VITALS: BP 118/56
[2018-06-26 16:27] LABS: Mean Corpuscular HGB CONC 32.1 g/dL (32.0-36.0); Mean Corpuscular Hemoglobin 29.9 pg (27.0-31.0); Mean Corpuscular Volume 93.2 fL (78.0-98.0); Mean Platelet Volume 12.2 fL (7.4-10.4); Platelet Count 118 thou/uL (130-400); RBC Distribution Width 15.8 % (11.5-14.5); Red Blood Cell (RBC) Count 2.67 mill/uL (4.70-6.10); White Blood Cell (WBC) Count 10.3 thou/uL (4.8-10.8)
[2018-06-26 16:45] LABS: Anisocytosis SLIGHT = 6-15 cells (100X) (0-5/hpf); Band 3 % (5-11); Basophilic Stippling SLIGHT = 1-2 cells (100X) (None Seen); Eosinophils 10 % (0-10); Lymphocytes 7 % (21-51); MDiff Complete? YES; Monocytes 9 % (0-10); Neutrophil 68 % (42-75); Ovalocytes SLIGHT = 2-5 cells (100X) (0-1/hpf); PLT Morphology Comment Appears Decreased; Pappenheimer Bodies SLIGHT = 1-2 cells (100X) (None Seen); Polychromasia SLIGHT = 2-3 cells (100X) (0-2/hpf); Schistocytes SLIGHT = 2-5 cells (100X) (0-1/hpf); Target Cells SLIGHT = 2-5 cells (100X) (0-1/hpf)
== END 2018-06-26 16:27 | disposition home or self-care (01) ==
LOC: ONC/OP 10:41
PROVIDERS: ATTEND Nurse Practitioner Acute Care
DX: D64.9 Anemia, unspecified (principal); D69.6 Thrombocytopenia, unspecified
CPT/HCPCS: 36430; 85025; 86850; 86900; 86901; 86922; P9016

== ENCOUNTER 2018-07-07 18:07 | Observation (INO) | payer MEDICARE, BC ==
[2018-07-07 18:46] LABS: Hemoglobin 6.7 g/dL (14.0-18.0); Mean Corpuscular HGB CONC 31.3 g/dL (32.0-36.0); Mean Corpuscular Hemoglobin 30.1 pg (27.0-31.0); Mean Corpuscular Volume 96.1 fL (78.0-98.0); Mean Platelet Volume 11.3 fL (7.4-10.4); Platelet Count 121 thou/uL (130-400); RBC Distribution Width 16.9 % (11.5-14.5); Red Blood Cell (RBC) Count 2.21 mill/uL (4.70-6.10); White Blood Cell (WBC) Count 8.3 thou/uL (4.8-10.8)
[2018-07-07 19:06] LABS: Acanthocytes SLIGHT = 1-5 cells (100X) (None Seen); Anisocytosis SLIGHT = 6-15 cells (100X) (0-5/hpf); Band 4 % (5-11); Elliptocytes SLIGHT = 2-5 cells (100X) (0-1/hpf); Eosinophils 4 % (0-10); Hypochromia SLIGHT = 6-15 cells (100X) (0-5/hpf); Lymphocytes 15 % (21-51); MDiff Complete? YES; Monocytes 2 % (0-10); Neutrophil 75 % (42-75); PLT Morphology Comment Appears Decreased; Schistocytes SLIGHT = 2-5 cells (100X) (0-1/hpf)
[2018-07-07 19:08] LABS: ALT (SGPT) 27 U/L (8-55); AST (SGOT) 28 U/L (5-34); Albumin 3.2 g/dL (3.4-4.8); Alkaline Phosphatase 189 U/L (40-150); Anion Gap 15 mmol/L (10-20); BUN (Urea Nitrogen) 39 mg/dL (8.4-25.7); Bilirubin, Total 0.6 mg/dL (0.2-1.2); Calc. Creatinine Clearance 0 mL/min (70-130); Calcium 8.7 mg/dL (7.8-10.44); Carbon Dioxide 29 mmol/L (23-31); Chloride 103 mmol/L (98-107); Estimated GFR-MDRD 15; Globulin 2.8 g/dL (2.4-3.5); Glucose 94 mg/dL (83-110); Potassium 4.5 mmol/L (3.5-5.1); Sodium 142 mmol/L (136-145)
[2018-07-07 19:11] LABS: CKMB 3.7 ng/mL (0-6.6); Troponin I 0.086 ng/mL (< 0.028)
[2018-07-07] MEDS ORDERED: Acetaminophen 325 MG TAB PO PRN (23:05)
[2018-07-08] MEDS ORDERED: hydrALAZINE 20 MG/ML VIAL SLOW IVP PRN (00:29)
[2018-07-08] MEDS ORDERED: HYDROcodone/Acetaminophen 5/325 mg Tablet PO PRN (00:29)
[2018-07-08] MEDS ORDERED: Ondansetron PF 4 MG/2 ML Vial IVP PRN (00:29)
[2018-07-08] MEDS ORDERED: Ondansetron ODT 4 MG TAB PO PRN (00:29)
[2018-07-08] MEDS ORDERED: Acetaminophen 325 MG TAB PO PRN (00:29)
[2018-07-08] MEDS ORDERED: IXAZOMIB CITRATE 3 MG PO SCH (00:30)
[2018-07-08] MEDS ORDERED: [UNRECOGNIZED DRUG - OTHER] IM SCH (00:30)
[2018-07-08 04:36] LABS: Anion Gap 16 mmol/L (10-20); BUN (Urea Nitrogen) 59 mg/dL (8.4-25.7); Calc. Creatinine Clearance 6 mL/min (70-130); Calcium 8.6 mg/dL (7.8-10.44); Carbon Dioxide 27 mmol/L (23-31); Chloride 101 mmol/L (98-107); Estimated GFR-MDRD 12; Glucose 82 mg/dL (83-110); Potassium 4.6 mmol/L (3.5-5.1); Sodium 139 mmol/L (136-145)
--- NOTE | 2018-07-08 04:49 | HP ---
PRIMARY CARE PHYSICIAN: Kali Thomas MD GAS STATION OPERATOR: Florencio Velez M.D. CHIEF COMPLAINT: Feeling rundown and dizzy. HISTORY OF PRESENT ILLNESS: Mr. Espino is a pleasant 73-year-old gentleman that has a history of en d-stage renal disease, on hemodialysis. He also has hypertension and chronic anemia. He actually hidalgo s a history of multiple blood transfusions in the past due to chronic anemia. He has been evaluated by Gastroenterology. He has had an endoscopy as well as colonoscopy on 06/21/2018, which was negativ e. He has also had a recent capsule study which demonstrated some arteriovenous malformations in the small bowel. He was recently discharged from our hospital for another episode of severe symptomatic anemia where he was transfused and released from the hospital. He says that he was on dialysis toda y and afterwards started to feel extremely tired run down and dizzy. He was also feeling a bit off b alance. He called his daughter who then brought him to the emergency room for evaluation. In the ER , lab work was done and it was noted that his hemoglobin was 6.7 and he is being placed in observatio n for recurrent anemia and need for a blood transfusion. The patient says he has dark stools on occa herrera, but he is on iron therapy so he says it is hard to tell if there has been any problem. He also noted little abdominal pain a few days ago, but it was very mild and it did not last long and he att ributed to gas-like pain. He denies any chest pain or shortness of breath, but he does complain of a mild headache, otherwise no other complaints. REVIEW OF SYSTEMS: All systems were reviewed and are negative except for that mentioned in the histo ry of present illness. PAST MEDICAL HISTORY: Significant for chronic anemia which is multifactorial due to renal disease, m yeloma, gastrointestinal losses. He has end-stage renal disease, on hemodialysis; hypertension; mult iple myeloma; dyslipidemia; generalized anxiety. PAST SURGICAL HISTORY: He has had bilateral gyedb-dpi-iylb amputation, AV fistula placed. An EGD an d colon in 2017, which were negative, as well as a capsule study showing AVMs in the small bowel. ALLERGIES: PENICILLIN. SOCIAL HISTORY: He is . He has 3 children. He lives with his son. He denies any alcohol or tobacco use. He ambulates short distances on his prosthesis, long distances in his wheelchair. He would like to have chest compressions if his heart were to stop but he does not want intubation, ther efore he is a do not intubate. FAMILY HISTORY: Significant for hypertension in his mother and father. CURRENT MEDICATIONS: Include pantoprazole 40 mg daily, Lipitor 80 mg daily, Ambien 5 mg daily, Trama dol 50 mg q.6 hours p.r.n., Renvela 2400 mg daily, mirtazapine 15 mg at bedtime, Revlimid 5 mg once a week, iron sulfate 325 mg twice a day, carvedilol 3.125 mg twice a day, aspirin 81 mg daily, Ninlaro 3 mg every 7 days and Epogen every 14 days. PHYSICAL EXAMINATION: GENERAL: He is well-developed, well-nourished. He appears to be in no acute distress. He does appe ar to be a bit thin. VITAL SIGNS: Blood pressure was 128/60, heart rate 71, respiratory rate of 18, temperature is 98. HEENT: His pupils are equal, round, and reactive to light. Extraocular muscles are intact. His scl erae are slightly pale. Throat: There is no erythema, no exudates. NECK: He did have some increase in his jugular venous distention. There is no adenopathy, no bruits . LUNGS: Clear to auscultation. There was no wheezing, no rales. CARDIOVASCULAR: He has a normal S1 and S2. There was no S3 or S4. No murmurs, clicks or rubs. ABDOMEN: Scaphoid, soft, it is nontender, nondistended. Positive for bowel sounds. There is no concepcion ound or guarding. EXTREMITIES: He has a below the knee amputation bilaterally. There is no skin breakdown on the stum p sites, no induration or erythema. NEUROLOGIC: His cranial nerves II-XII are intact. Muscle strength is normal. MUSCULOSKELETAL: Did have some mild muscle atrophy in his upper extremities; however, there was no j oint effusions or warmth. LABORATORY RESULTS: Sodium is 142, potassium 4.5, chloride is 103, CO2 is 29, BUN of 39, creatinine 4.68, glucose is 94. White blood cell count 8.3, hemoglobin 6.7, hematocrit is 21.3, platelet count is 121. ASSESSMENT AND PLAN: This is a pleasant 73-year-old gentleman who presents with symptomatic anemia. He has had a full Gastroenterology workup in the past. The evaluation by Dr. Morgan, which was naga camejo his last admission, there was some discussion about sending him to [place] for what sounds like a possible push enteroscopy. He says that he has an appointment scheduled for this month. Theref ore, we will treat his anemia symptomatically and allow him to follow up with Dr. Morgan in the outpa tient setting. He will be placed in observation and be given 2 units of packed RBCs during dialysis tomorrow. His homemaking rehabilitation consultant will be consulted for this with regards to his end-stage renal disease an d we will continue his other medications for renal replacement as well as hypertension.
[2018-07-08 05:50] LABS: Hemoglobin 5.9 g/dL (14.0-18.0)
[2018-07-08 07:44] LABS: HBSAg Index 0.21 S/CO (0-0.99); Hep B Surf Ag Non-Reactive S/CO (NonReactive)
[2018-07-08 08:25] LABS: Mean Corpuscular HGB CONC 30.3 g/dL (32.0-36.0); Mean Corpuscular Hemoglobin 28.8 pg (27.0-31.0); Mean Platelet Volume 11.8 fL (7.4-10.4); Platelet Count 117 thou/uL (130-400); RBC Distribution Width 16.8 % (11.5-14.5); Red Blood Cell (RBC) Count 2.05 mill/uL (4.70-6.10); White Blood Cell (WBC) Count 7.4 thou/uL (4.8-10.8)
[2018-07-08 08:43] LABS: Band 4 % (5-11); Eosinophils 4 % (0-10); Hypochromia SLIGHT = 6-15 cells (100X) (0-5/hpf); Lymphocytes 16 % (21-51); MDiff Complete? YES; Monocytes 19 % (0-10); Neutrophil 57 % (42-75); PLT Morphology Comment Appears Decreased; Polychromasia SLIGHT = 2-3 cells (100X) (0-2/hpf); Schistocytes SLIGHT = 2-5 cells (100X) (0-1/hpf); Target Cells SLIGHT = 2-5 cells (100X) (0-1/hpf)
[2018-07-08] MEDS ORDERED: Lenalidomide [Revlimid] 5 MG PO SCH (09:00)
[2018-07-08] MEDS ORDERED: Dexamethasone 4 MG TAB PO SCH (09:00)
[2018-07-08] MEDS ORDERED: Heparin 10,000 UNITS/ 10 ML VIAL ONE (10:00)
[2018-07-08] MEDS: Carvedilol 3.125 MG TAB PO SCH ×2 (12:07→21:33)
[2018-07-08] MEDS: Ferrous Sulfate 325 MG TAB PO SCH ×2 (12:07→21:34)
[2018-07-08] MEDS: Famotidine 20 MG TAB PO SCH (12:08)
[2018-07-08] MEDS: Sevelamer Carbonate 800 MG TAB PO SCH (12:08)
[2018-07-08 12:09] LABS: Hemoglobin 9.6 g/dL (14.0-18.0)
--- NOTE | 2018-07-08 15:55 | PDOC.PN ---
- Subjective Encounter Start Date: 07/08/18 Encounter Start Time: 15:54 Patient lying in bed, he tolerated dialysis this morning without complaints. He received 2 units of blood and CBC shows Hgb improved to 9.6. No signs of bleeding. Denies chest pain, shortness of breath or abdominal pain. - Objective Resuscitation Status: Resuscitation Status DNI:No Intubation MAR Reviewed: Yes Vital Signs & Weight: Vital Signs (12 hours) Temp Pulse Resp BP Pulse Ox 07/08/18 15:40 98.1 F 60 18 115/61 97 07/08/18 11:50 98.5 F 58 L 16 114/65 98 07/08/18 11:25 98.4 F 07/08/18 10:43 98.3 F 07/08/18 10:21 98.3 F 07/08/18 09:53 98.3 F 07/08/18 09:35 98.3 F 07/08/18 07:50 98.1 F 66 18 109/56 L 97 07/08/18 04:00 98.8 F 64 18 106/58 L 96 Weight Admit Weight 82 lb 9.6 oz Weight 82 lb 9.6 oz Most Recent Monitor Data Heart Rate from ECG 57 NIBP 106/61 Respiration from ECG 14 I&O: 07/07/18 07/08/18 07/09/18 06:59 06:59 06:59 Intake Total 100 700 Balance 100 700 Result Diagrams: 07/08/18 11:35 07/08/18 03:32 Radiology Reviewed by me: Yes EKG Reviewed by me: No Phys Exam - Physical Examination Constitutional: NAD HEENT: PERRLA, moist MMs, sclera anicteric, oral pharynx no lesions Neck: no nodes, no JVD, supple Respiratory: no wheezing, no rales, no rhonchi, clear to auscultation bilateral Cardiovascular: RRR, no significant murmur, no rub Gastrointestinal: soft, non-tender, no distention, positive bowel sounds Musculoskeletal: no edema Bilateral BKA noted, no skin breakdown or erythema noted. Right upper extremity AV fistula noted bruit auscultated Neurological: non-focal, normal sensation Lymphatic: no nodes Psychiatric: normal affect, A&O x 3 Skin: no rash, normal turgor, cap refill <2 seconds Dx/Plan (1) Symptomatic anemia Code(s): D64.9 - ANEMIA, UNSPECIFIED Status: Acute (2) ESRD (end stage renal disease) on dialysis Code(s): N18.6 - END STAGE RENAL DISEASE; Z99.2 - DEPENDENCE ON RENAL DIALYSIS Status: Chronic Comment: On HD per Dr Velez (3) HTN (hypertension) Code(s): I10 - ESSENTIAL (PRIMARY) HYPERTENSION Status: Chronic (4) Hx of below knee amputation Code(s): Z89.519 - ACQUIRED ABSENCE OF UNSPECIFIED LEG BELOW KNEE Status: Chronic (5) Multiple myeloma Code(s): C90.00 - MULTIPLE MYELOMA NOT HAVING ACHIEVED REMISSION Status: Chronic (6) PVD (peripheral vascular disease) Code(s): I73.9 - PERIPHERAL VASCULAR DISEASE, UNSPECIFIED Status: Chronic - Plan cont current plan of care * Monitor CBC and specifically H&H closely * Plan for dialysis run tomorrow with additional units of PRBC as necessary * Pending patient progress may likely discharge tomorrow with outpatient follow up
[2018-07-08] MEDS ORDERED: Atorvastatin Calcium 40 MG TAB PO SCH (21:00)
[2018-07-08] MEDS ORDERED: Mirtazapine 15 MG TAB PO SCH (21:00)
[2018-07-08] MEDS ORDERED: Zolpidem Tartrate 5 MG TAB PO SCH (21:00)
[2018-07-09 07:44] VITALS: BMI 13.5
[2018-07-09 09:35] LABS: Hemoglobin 9.8 g/dL (14.0-18.0)
[2018-07-09] MEDS ORDERED: Heparin 10,000 UNITS/ 10 ML VIAL ONE (12:00)
[2018-07-09 14:49] LABS: Hemoglobin 13.4 g/dL (14.0-18.0); Platelet Count 125 thou/uL (130-400)
[2018-07-09] MEDS: Sevelamer Carbonate 800 MG TAB PO SCH ×2 (15:03→15:12)
[2018-07-09] MEDS: Famotidine 20 MG TAB PO SCH (15:11)
[2018-07-09] MEDS: Carvedilol 3.125 MG TAB PO SCH (15:11)
[2018-07-09] MEDS: Ferrous Sulfate 325 MG TAB PO SCH (15:12)
[2018-07-09 15:15] VITALS: BP 114/66; TEMP 98.5
--- NOTE | 2018-07-10 04:12 | DIS ---
DATE OF ADMISSION: 07/07/2018 DATE OF DISCHARGE: 07/09/2018 DISCHARGE DIAGNOSES: 1. Anemia secondary to multiple myeloma, stable. 2. End-stage renal disease on dialysis, stable. 3. Hypertension, stable. 4. Multiple myeloma, stable. 5. Dyslipidemia, stable. CONSULTATIONS: Nephrology Services, Dr. Florencio Velez. PERTINENT LABORATORY FINDINGS: WBC 7.4, RBC 2.05, hemoglobin on admission 6.7, dropped to 5.9 after 4 units of blood, stanislaw to 13.4, platelet count 125,000. Sodium 139, potassium 4.6, anion gap 16, BUN 59, creatinine between 4.68 and 5.6 , glucose 82, 28, ALT 27, alkaline phosphatase 189, CK-MB 3.7. Troponin 0.086. HOSPITAL COURSE: Mr. Espino is a pleasant 73-year-old male who had presented to [facility] with symptomatic anemia, he had a history of end-stage renal disease on hemodialysis with normal dialysis schedule Saturday , Saturday, and Saturday. He was transfused with 1 unit of packed red blood cells in the ER due to his lab work showing an initial hemoglobin of 6.7. He was transferred to the floor on telemetry with observation status. Nephrology Services were consulted with Dr. Florencio Velez. He was scheduled for dialysis , he had ran for dialysis on 07/08/2018 after admission and had received a second unit of blood due to the hemoglobin dropping to 5.9 for a total of 2 units. After dialysis, his hemoglobin was rechecked and found to be 9.6. His symptoms of chest pain, shortness of breath, and fatigue also improved. He was monitored overnight closely and symptoms had resolved. He was continued on home medications. He had undergone dialysis the next morning on 07/09/2018 and tolerated well. He had received two further units of packed red blood cells and tolerated well. After dialysis, hemoglobin was rechecked and found to be 13.4. He was seen and examined prior to discharge and denied symptoms of chest pain, shortness of breath or abdominal pain. No signs of bleeding at this time. Patient had followed up with Dr. Morgan in the past and has a followup appointment with Dr. Morgan in [address] Morgan was planning to refer patient to physician in [place], [place] at a later date. He was instructed to continue his home medications. He was instructed to follow up with primary care physician in 1-[address] Morgan at his followup appointment scheduled at the end of the month. He had verbalized his understanding for discharge plan and he was deemed medically stable for discharge home on 2017. DISCHARGE MEDICATIONS: 1. Carvedilol 3.125 mg oral b.i.d. 2. Tramadol 1-2 tabs oral every 6 hours as needed for pain. 3. Atorvastatin 80 mg oral at bedtime. 4. Mirtazapine 1 tab oral at bedtime. 5. Revlimid 5 mg oral daily. 6. Ferrous sulfate 325 mg oral twice daily. 7. Dexamethasone 10 mg oral every week. 8. Ixazomib 3 mg oral every 7 days. 9. Protonix 40 mg oral daily. 10. Ambien 5 mg oral at bedtime. 11. Renvela 2400 mg oral daily. 12. Mircera 100 mcg intramuscular every 14 days. 13. Aspirin 81 mg daily. FOLLOWUP: The patient is to follow up with his primary care physician, Dr. Kali Thomas in 1-2 weeks, he is also instructed to follow up with Dr. Morgan at his followup appointment at the end of the month. CONDITION ON DISCHARGE: Stable. ACTIVITY: As tolerated. DIET: Renal diet. DISPOSITION: Home on 07/09/2018. MING
--- NOTE | 2018-07-11 15:45 | EKG ---
Test Reason : Blood Pressure : / mmHG Vent. Rate : 070 BPM Atrial Rate : 070 BPM P-R Int : 176 ms QRS Dur : 076 ms QT Int : 414 ms P-R-T Axes : 082 035 073 degrees QTc Int : 447 ms Normal sinus rhythm Normal ECG Confirmed by MANUEL WATSON DO ([id number]), art editor KSENIA FORBES ([id number] on 07/11/2018 3:45:07 PM Referred By: Confirmed By:MANUEL WATSON DO
== END 2018-07-09 16:54 | disposition home or self-care (01) ==
LOC: ERS 18:07 → 2SW 20:32
PROVIDERS: ADMIT Internal Medicine Infectious Disease; ATTEND Internal Medicine Infectious Disease
DX: C90.00 Multiple myeloma not having achieved remission (principal); D63.0 Anemia in neoplastic disease; I12.0 Hypertensive chronic kidney disease with stage 5 chronic kidney disease or end stage renal disease; N18.6 End stage renal disease; E78.5 Hyperlipidemia, unspecified; F41.1 Generalized anxiety disorder; I73.9 Peripheral vascular disease, unspecified; Z79.82 Long term (current) use of aspirin; Z79.899 Other long term (current) drug therapy; Z88.0 Allergy status to penicillin; Z88.8 Allergy status to other drugs, medicaments and biological substances; Z89.512 Acquired absence of left leg below knee; Z89.511 Acquired absence of right leg below knee; Z99.2 Dependence on renal dialysis
CPT/HCPCS: 36430 ×2; 80048; 80053; 82553; 84484; 85014 ×3; 85018 ×3; 85025 ×2; 85049; 86850; 86900; 86901; 86904; 86920; 86922; 87340; 93005; 99285; G0378 ×2; P9016 ×2; 36415; 90935; G0257; J1644

== ENCOUNTER 2018-07-31 10:40 | Day surgery (SDC) | payer MEDICARE, BC ==
[2018-07-31] MEDS ORDERED: Sodium Chloride 0.9% 20 ML ONE (10:52)
[2018-07-31] MEDS ORDERED: diphenhydrAMINE 25 MG CAP PO SCH (11:00)
[2018-07-31] MEDS ORDERED: Acetaminophen 500 MG TAB PO SCH (11:00)
[2018-07-31 15:25] LABS: Hemoglobin 7.7 g/dL (14.0-18.0)
[2018-07-31 18:06] VITALS: BP 126/69; TEMP 98.4
== END 2018-07-31 18:08 | disposition home or self-care (01) ==
LOC: ONC/OP 10:40
PROVIDERS: ATTEND Internal Medicine Hematology & Oncology
DX: D64.9 Anemia, unspecified (principal); D69.6 Thrombocytopenia, unspecified; Z91.041 Radiographic dye allergy status
CPT/HCPCS: 36415; 36430; 83883; 84165; 85014; 85018; 86850; 86900; 86901; 86922; P9016

== ENCOUNTER 2018-08-05 10:20 | Day surgery (SDC) | payer MEDICARE, BC ==
[2018-08-04 15:57] VITALS: BMI 18.8
--- NOTE | 2018-08-05 23:28 | OP ---
DATE OF PROCEDURE: 08/05/2018 PROCEDURES PERFORMED: EGD and push enteroscopy. PREPROCEDURE DIAGNOSES: 1. Recurrent gastrointestinal bleed. 2. Iron deficiency anemia. 3. Capsule endoscopy of small bowel active bleeding in 03/2015. 4. Esophagogastroduodenoscopy in 04/2015 noticed arteriovenous malformations ablated in the duodenum. In 05/2017, he had a normal esophagogastroduodenoscopy and colonoscopy. In 05/2018, he had an esophagogastroduodenoscopy with Dr. Monae. He was hospitalized for transfusion. Slight oozing in the antrum, which was cauterized. POSTPROCEDURE DIAGNOSES: 1. Push enteroscopy with colonoscope to 100 cm proximal jejunum. No active bleeding site seen. 2. Normal duodenal bulb and second and third portions except for duodenal diverticula. 3. Normal stomach except for hiatal hernia. 4. Normal esophagus without Jimmy erosions or ulcers. RECOMMENDATIONS: 1. Transfuse p.r.n. 2. We will refer to [place] for deep enteroscopy, balloon or push, the thing what is available. Follow up in my office in 1 month. ANESTHESIA: TIVA. DESCRIPTION OF PROCEDURE: The patient was informed of the risks, benefits, and possible complications of the endoscopy including perforation; risks, aspiration. Informed consent was obtained. The patient was brought to the endoscopy suite where he was sedated in the gradual fashion. Once he was comfortable, bite block was placed esophagus, stomach, second and third portions of the duodenum, and into the first part of the jejunum. No bleeding sites were seen. There were pigment changes in the mucosa of the small bowel consistent with slight melanosis versus iron deposition. The scope was brought back from the duodenum. There was duodenal diverticulum in third portion of duodenum with no active bleeding. The duodenal bulb was normal. The stomach was normal in forward and retroflexed views except for scope trauma from the push enteroscopy. There was small hiatal hernia and esophagus was normal. The scope was removed. The patient tolerated the procedure well without complications. RECOMMENDATIONS: He did have tube dislodge when he bit on the bite block. See Anesthesia notes regarding that. Job ID: [id number]
== END 2018-08-05 12:44 | disposition home or self-care (01) ==
LOC: SDC 10:20 → EEVIPCON 10:20 → SDC 12:44
PROVIDERS: ATTEND Internal Medicine Gastroenterology
PROC: 0DJ08ZZ Inspection of Upper Intestinal Tract, Via Natural or Artificial Opening Endoscopic (ICD-10-PCS; principal; 2018-08-05)
DX: D50.9 Iron deficiency anemia, unspecified (principal); K57.10 Diverticulosis of small intestine without perforation or abscess without bleeding; K44.9 Diaphragmatic hernia without obstruction or gangrene; Z88.0 Allergy status to penicillin; Z88.1 Allergy status to other antibiotic agents; Z87.891 Personal history of nicotine dependence; Z79.82 Long term (current) use of aspirin; Z79.899 Other long term (current) drug therapy

== ENCOUNTER 2018-09-02 12:19 | Day surgery (SDC) | payer MEDICARE, BC ==
[2018-09-02] MEDS ORDERED: diphenhydrAMINE 25 MG CAP PO SCH (13:15)
[2018-09-02] MEDS ORDERED: Acetaminophen 500 MG TAB PO SCH (13:15)
[2018-09-02] MEDS ORDERED: Sodium Chloride 0.9% 20 ML ONE (15:30)
[2018-09-02 16:55] VITALS: BP 119/61; TEMP 98.2
== END 2018-09-02 17:02 | disposition home or self-care (01) ==
LOC: ONC/OP 12:19
PROVIDERS: ATTEND Nurse Practitioner Acute Care
DX: D64.9 Anemia, unspecified (principal); D69.6 Thrombocytopenia, unspecified; Z88.0 Allergy status to penicillin; Z88.8 Allergy status to other drugs, medicaments and biological substances
CPT/HCPCS: 36430; 86850; 86900; 86901; 86922; P9016

== ENCOUNTER 2018-09-18 08:09 | Day surgery (SDC) | payer MEDICARE, BC ==
[2018-09-18] MEDS ORDERED: Sodium Chloride 0.9% 20 ML ONE (08:45)
[2018-09-18] MEDS ORDERED: Sodium Chloride 0.9% 30 ML ONE (08:59)
[2018-09-18] MEDS ORDERED: Acetaminophen 500 MG TAB PO SCH (09:00)
[2018-09-18] MEDS ORDERED: diphenhydrAMINE 25 MG CAP PO SCH (09:00)
[2018-09-18 15:26] VITALS: BP 110/64; TEMP 98.6
== END 2018-09-18 15:26 | disposition home or self-care (01) ==
LOC: ONC/OP 08:09
PROVIDERS: ATTEND Internal Medicine Hematology & Oncology
PROC: 30233N1 Transfusion of Nonautologous Red Blood Cells into Peripheral Vein, Percutaneous Approach (ICD-10-PCS; principal; 2018-09-18)
DX: D64.9 Anemia, unspecified (principal); D69.6 Thrombocytopenia, unspecified; Z79.82 Long term (current) use of aspirin; Z79.899 Other long term (current) drug therapy; Z88.0 Allergy status to penicillin; Z88.1 Allergy status to other antibiotic agents
CPT/HCPCS: 36430; 85014; 85018; 86850; 86900; 86901; 86922; P9016

== ENCOUNTER 2018-10-16 09:24 | Day surgery (SDC) | payer MEDICARE, BC ==
[2018-10-16] MEDS ORDERED: diphenhydrAMINE 25 MG CAP PO SCH (10:15)
[2018-10-16] MEDS ORDERED: Acetaminophen 500 MG TAB PO SCH (10:15)
[2018-10-16] MEDS ORDERED: Sodium Chloride 0.9% 40 ML ONE (10:39)
[2018-10-16 12:20] VITALS: TEMP 99
[2018-10-16 13:52] LABS: Hemoglobin 7.6 g/dL (14.0-18.0)
[2018-10-16 14:05] VITALS: BP 109/57
== END 2018-10-16 16:53 | disposition home or self-care (01) ==
LOC: ONC/OP 09:24
PROVIDERS: ATTEND Internal Medicine Hematology & Oncology
PROC: 30233N1 Transfusion of Nonautologous Red Blood Cells into Peripheral Vein, Percutaneous Approach (ICD-10-PCS; principal; 2018-10-16)
DX: D64.9 Anemia, unspecified (principal); D69.6 Thrombocytopenia, unspecified; Z88.0 Allergy status to penicillin; Z88.1 Allergy status to other antibiotic agents
CPT/HCPCS: 36430; 85014; 85018; 86850; 86900; 86901; 86922; P9016; Q0163

== ENCOUNTER 2018-11-25 10:08 | Day surgery (SDC) | payer MEDICARE, BC ==
[2018-11-25] MEDS ORDERED: Acetaminophen 500 MG TAB PO SCH (10:30)
[2018-11-25] MEDS ORDERED: diphenhydrAMINE 25 MG CAP PO SCH (10:30)
[2018-11-25] MEDS ORDERED: Sodium Chloride 0.9% 20 ML ONE (10:46)
[2018-11-25 14:54] VITALS: TEMP 97.4
[2018-11-25 14:56] VITALS: BP 109/57
== END 2018-11-25 14:56 | disposition home or self-care (01) ==
LOC: ONC/OP 10:08
PROVIDERS: ATTEND Internal Medicine Hematology & Oncology
PROC: 30233N1 Transfusion of Nonautologous Red Blood Cells into Peripheral Vein, Percutaneous Approach (ICD-10-PCS; principal; 2018-11-25)
DX: D64.9 Anemia, unspecified (principal); D69.6 Thrombocytopenia, unspecified
CPT/HCPCS: 36430; 86850; 86900; 86901; 86922; P9016; Q0163

== ENCOUNTER 2018-12-11 08:35 | Day surgery (SDC) | payer MEDICARE, BC ==
[2018-12-11] MEDS ORDERED: Sodium Chloride 0.9% 30 ML ONE (08:47)
[2018-12-11] MEDS ORDERED: Acetaminophen 500 MG TAB PO SCH (09:15)
[2018-12-11] MEDS ORDERED: diphenhydrAMINE 25 MG CAP PO SCH (09:15)
[2018-12-11 17:24] VITALS: BP 124/60; TEMP 98
== END 2018-12-11 17:24 | disposition home or self-care (01) ==
LOC: ONC/OP 08:35
PROVIDERS: ATTEND Internal Medicine Hematology & Oncology
PROC: 30233N1 Transfusion of Nonautologous Red Blood Cells into Peripheral Vein, Percutaneous Approach (ICD-10-PCS; principal; 2018-12-11)
DX: D64.9 Anemia, unspecified (principal); D69.6 Thrombocytopenia, unspecified; Z88.0 Allergy status to penicillin; Z88.1 Allergy status to other antibiotic agents
CPT/HCPCS: 36430; 86850; 86900; 86901; 86922; P9016; Q0163

== ENCOUNTER 2019-01-03 10:07 | Day surgery (SDC) | payer MEDICARE, BC ==
[2019-01-03] MEDS ORDERED: diphenhydrAMINE 25 MG CAP PO SCH (11:00)
[2019-01-03] MEDS ORDERED: Acetaminophen 500 MG TAB PO SCH (11:00)
[2019-01-03 19:25] VITALS: TEMP 97.9
[2019-01-03 21:32] VITALS: BP 134/66
[2019-01-03 22:06] LABS: Band 8 % (5-11); Eosinophils 9 % (0-10); Hemoglobin 8.6 g/dL (14.0-18.0); Lymphocytes 29 % (21-51); MDiff Complete? YES; Mean Corpuscular HGB CONC 31.6 g/dL (32.0-36.0); Mean Corpuscular Hemoglobin 30.1 pg (27.0-31.0); Mean Corpuscular Volume 95.3 fL (78.0-98.0); Monocytes 1 % (0-10); Neutrophil 53 % (42-75); Platelet Count 122 thou/uL (130-400); RBC Distribution Width 16.7 % (11.5-14.5); Red Blood Cell (RBC) Count 2.85 mill/uL (4.70-6.10); White Blood Cell (WBC) Count 5.7 thou/uL (4.8-10.8)
== END 2019-01-03 21:57 | disposition home or self-care (01) ==
LOC: ONC/OP 10:07
PROVIDERS: ATTEND Internal Medicine Hematology & Oncology
PROC: 30233N1 Transfusion of Nonautologous Red Blood Cells into Peripheral Vein, Percutaneous Approach (ICD-10-PCS; principal; 2019-01-03)
DX: D64.9 Anemia, unspecified (principal); D69.6 Thrombocytopenia, unspecified; Z88.0 Allergy status to penicillin; Z88.1 Allergy status to other antibiotic agents
CPT/HCPCS: 36415; 36430; 85007; 85027; 86850; 86900; 86901; 86922; P9016; Q0163

== ENCOUNTER 2019-01-16 14:42 | Day surgery (SDC) | payer MEDICARE, BC ==
[2019-01-16] MEDS ORDERED: Acetaminophen 500 MG TAB PO SCH (15:15)
[2019-01-16] MEDS ORDERED: diphenhydrAMINE 25 MG CAP PO SCH (15:15)
[2019-01-16 21:30] VITALS: BP 123/61; TEMP 98
[2019-01-16 21:58] LABS: Band 6 % (5-11); Eosinophils 14 % (0-10); Hemoglobin 7.6 g/dL (14.0-18.0); Lymphocytes 18 % (21-51); MDiff Complete? YES; Mean Corpuscular HGB CONC 32.5 g/dL (32.0-36.0); Mean Corpuscular Hemoglobin 30.7 pg (27.0-31.0); Mean Corpuscular Volume 94.3 fL (78.0-98.0); Mean Platelet Volume 11.2 fL (7.4-10.4); Monocytes 8 % (0-10); Neutrophil 54 % (42-75); Platelet Count 120 thou/uL (130-400); Platelet Morphology Comment Appears Decreased; RBC Distribution Width 17.2 % (11.5-14.5); Red Blood Cell (RBC) Count 2.47 mill/uL (4.70-6.10); White Blood Cell (WBC) Count 6.3 thou/uL (4.8-10.8)
== END 2019-01-16 21:32 | disposition home or self-care (01) ==
LOC: ONC/OP 14:42
PROVIDERS: ATTEND Nurse Practitioner Acute Care
PROC: 30233N1 Transfusion of Nonautologous Red Blood Cells into Peripheral Vein, Percutaneous Approach (ICD-10-PCS; principal; 2019-01-16)
DX: D64.9 Anemia, unspecified (principal); D69.6 Thrombocytopenia, unspecified
CPT/HCPCS: 36415; 36430; 85025; 86850; 86900; 86901; 86904; 86922; P9016; Q0163

== ENCOUNTER 2019-01-29 08:54 | Day surgery (SDC) | payer MEDICARE, BC ==
[2019-01-29] MEDS ORDERED: Sodium Chloride 0.9% 30 ML ONE (08:57)
[2019-01-29 13:09] LABS: Hemoglobin 7.4 g/dL (14.0-18.0)
[2019-01-29 15:35] VITALS: BP 144/73; TEMP 97.7
== END 2019-01-29 17:24 | disposition home or self-care (01) ==
LOC: ONC/OP 08:54
PROVIDERS: ATTEND Internal Medicine Hematology & Oncology
PROC: 30233N1 Transfusion of Nonautologous Red Blood Cells into Peripheral Vein, Percutaneous Approach (ICD-10-PCS; principal; 2019-01-29)
DX: D64.9 Anemia, unspecified (principal); D69.6 Thrombocytopenia, unspecified
CPT/HCPCS: 36430; 85014; 85018; 86850; 86900; 86901; 86922; P9016; Q0163

== ENCOUNTER 2019-02-02 13:11 | Outpatient (CLI) | payer MEDICARE, BC ==
--- NOTE | 2019-02-02 14:10 | RAD ---
XR Bone Survey Adult STANDARD Lateral skull one view Cervical spine 2 view Thoracic spine 2 view Lumbar spine 2 view Upper extremity bilateral 2 view Pelvis one view Bilateral lower extremity 1 view History: Multiple myeloma Comparison: Bone survey February 2018 Findings: Degenerative changes mid cervical spine. Moderate vascular calcifications. Moderate degener ative disease lower lumbar spine. Moderate vascular calcifications of the carotid bulbs. Mild dextroscoliosis thoracolumbar junction. No abnormal calcifications projecting over the renal shadows. No suspicious osteolytic lesions. Graft presents over the right upper arm. Surgical clips along the medial upper arm as well as of the right elbow and forearm. Degenerative changes are present both shoulders. Bilateral [id number] amputation. Impression: No osteolytic lesions to suggest myeloma. Multiple myeloma.
== END 2019-02-02 13:12 | disposition home or self-care (01) ==
LOC: BICRAD 13:11
PROVIDERS: ATTEND Internal Medicine Hematology & Oncology
DX: C90.00 Multiple myeloma not having achieved remission (principal); R11.2 Nausea with vomiting, unspecified; N18.4 Chronic kidney disease, stage 4 (severe); D63.1 Anemia in chronic kidney disease; D50.0 Iron deficiency anemia secondary to blood loss (chronic); E83.52 Hypercalcemia
CPT/HCPCS: 77075

== ENCOUNTER 2019-02-23 10:07 | Inpatient (IN) | payer MEDICARE, BC ==
[2019-02-23 10:59] LABS: Hemoglobin 7.6 g/dL (14.0-18.0); Mean Corpuscular HGB CONC 32.3 g/dL (32.0-36.0); Mean Corpuscular Hemoglobin 29.7 pg (27.0-31.0); Mean Corpuscular Volume 91.9 fL (78.0-98.0); Mean Platelet Volume 11.6 fL (7.4-10.4); Platelet Count 131 thou/uL (130-400); RBC Distribution Width 15.7 % (11.5-14.5); Red Blood Cell (RBC) Count 2.57 mill/uL (4.70-6.10)
[2019-02-23 11:24] LABS: Band 4 % (5-11); Eosinophils 23 % (0-10); Lymphocytes 16 % (21-51); MDiff Complete? YES; Monocytes 21 % (0-10); Neutrophil 34 % (42-75); Platelet Morphology Comment Appears Adequate; Polychromasia SLIGHT = 2-3 cells (100X) (0-2/hpf); Schistocytes SLIGHT = 2-5 cells (100X) (0-1/hpf); Target Cells SLIGHT = 2-5 cells (100X) (0-1/hpf)
[2019-02-23 11:26] LABS: ALT (SGPT) 99 U/L (8-55); AST (SGOT) 252 U/L (5-34); Albumin 2.6 g/dL (3.4-4.8); Alkaline Phosphatase 431 U/L (40-150); Anion Gap 15 mmol/L (10-20); BUN (Urea Nitrogen) 56 mg/dL (8.4-25.7); Bilirubin, Total 0.8 mg/dL (0.2-1.2); Calc. Creatinine Clearance 0 mL/min (70-130); Calcium 7.8 mg/dL (7.8-10.44); Carbon Dioxide 23 mmol/L (23-31); Chloride 101 mmol/L (98-107); Estimated GFR-MDRD 7; Glucose 88 mg/dL (83-110); Potassium 4.3 mmol/L (3.5-5.1); Protein, Total 5.6 g/dL (5.8-8.1); Sodium 135 mmol/L (136-145)
[2019-02-23 12:06] LABS: CKMB 12.8 ng/mL (0-6.6)
[2019-02-23] MEDS ORDERED: Aspirin Chewable 81 MG TAB ONE (12:58)
--- NOTE | 2019-02-23 13:51 | RAD ---
EXAM: Chest one view: HISTORY: Shortness of breath COMPARISON: 11/08/2015 FINDINGS: Heart size: Minimally enlarged. Mild vascular congestion. Ectatic changes of the aorta and great vessels. Lungs: Clear of acute process. No evidence for pneumonia, pleural effusion, acute edema, or pneumothorax, or other significant acute process. IMPRESSION: Mild cardiomegaly without other acute process.
[2019-02-23 14:55] LABS: Reticulocyte Count 1.1 % (0.5-1.5)
[2019-02-23 15:01] LABS: INR-International Normal Ratio 1.2; PTT 34.5 SEC (22.9-36.1); Prothrombin Time 15.2 SEC (12.0-14.7)
--- NOTE | 2019-02-23 15:02 | HP ---
PRIMARY CARE PHYSICIAN: Dr. Kali Thomas. PRIMARY ONCOLOGIST: Tamela Mooney MD CHIEF COMPLAINT: Shortness of breath. HISTORY OF PRESENT ILLNESS: The patient is a 73-year-old male with multiple myeloma, hypertension, dyslipidemia, and end-stage renal disease, on hemodialysis, presented to the emergency room with above complaints. The patient has a long history of anemia and has had extensive workup in the past. He is currently being treated for multiple myeloma by Dr. Mooney. He is scheduled for bone marrow biopsy tomorrow. He discontinued taking aspirin last week in preparation for bone marrow biopsy. Over the past couple of days, the patient is feeling generally weak and fatigued. He gets short of breath on walking few steps. This is different from his baseline. He denies any chest pain, palpitations, lightheadedness, or syncope. No fever or chills reported. No cough reported. He denies recent immobilization travel. He is compliant with fluid restriction. In the emergency room, his hemoglobin was 7.6 with CK-MB of 12.8, troponin of 0.627. He received aspirin in the emergency room. PAST MEDICAL HISTORY: 1. End-stage renal disease, on hemodialysis. 2. Multiple myeloma. 3. Hypertension. 4. Peripheral vascular disease. 5. Chronic anemia with extensive workup in the past. 6. Dyslipidemia. 7. Anxiety. 8. Hypertension. PAST SURGICAL HISTORY: 1. Bilateral below-knee amputation for peripheral vascular disease. 2. EGD. 3. Colonoscopy. 4. Capsule study. ALLERGIES: THE PATIENT IS ALLERGIC TO GENTAMICIN, PENICILLIN, AND LINCOSAMIDE. SOCIAL HISTORY: The patient currently lives at home with his family. He is a former smoker. No alcohol or drug use reported. He makes his own decision with the help of his family. FAMILY HISTORY: Positive for hypertension. REVIEW OF SYSTEMS: All other review of systems were reviewed and were found negative. CURRENT HOME MEDICATIONS: Family to provide accurate list of medication. He is able to name some of them that includes; 1. Carvedilol. 2. Lipitor. 3. Remeron. 4. Ambien. 5. Protonix. 6. Tramadol. 7. Ferrous sulfate. 8. Renvela. PHYSICAL EXAMINATION: VITAL SIGNS: Temperature 98.5, respirations 16, pulse rate of 50, blood pressure of 122/80, and O2 saturation 96% on room air. GENERAL: A 73-year-old male, in no apparent distress at rest. HEENT: Head; atraumatic and normocephalic. Sclerae are anicteric. Moist mucous membranes. No oral lesion. NECK: Supple. No JVD appreciated. No carotid bruit. LUNGS: Essentially clear to auscultation bilaterally. No wheezing, rales, or rhonchi. HEART: S1 and S2 present. Regular rate and rhythm. No rubs or gallops appreciated. ABDOMEN: Soft and nontender. Bowel sounds present. EXTREMITIES: The patient has bilateral BKA. NEUROLOGIC: Grossly nonfocal. Moves all 4 extremities. PSYCHIATRY: Alert, awake, and oriented x3. SKIN: Warm and dry. LYMPH NODE: No palpable lymph nodes in the neck. PERIPHERAL VASCULAR: Radial pulses palpable bilaterally. MUSCULOSKELETAL: No joint swelling or tenderness. LABORATORY FINDINGS: EKG by my review showed sinus bradycardia with PACs. Chest x-ray by my review was negative for infiltrate or edema. It showed mild cardiomegaly. Troponin as discussed above. WBC 6.0 with hemoglobin 7.6, hematocrit 23.6, and platelet 131. Sodium 135, potassium 4.3, chloride 101, bicarb 23, BUN 56, creatinine 9.53, AST 252, ALT 99, and alkaline phosphatase 431. Albumin 2.6. IMPRESSION: 1. [id number]-[id number] myocardial infarction. 2. Chronic anemia with history of multiple myeloma. 3. End-stage renal disease, on hemodialysis. 4. Hypertension. 5. Dyslipidemia. 6. Former smoker. 7. Anxiety. 8. History of gastrointestinal bleeding in the past. 9. Mild hyponatremia. 10. Abnormal LFTs of unclear etiology. PLAN: The patient will be monitored on the telemetry unit. Cardiology will be consulted. We will continue aspirin. We will get echocardiogram. We will hold Lovenox or heparin due to history of GI bleeding as well as chronic anemia. Consult Nephrology for dialysis management. Resume selected home medications once verified. A.m. labs. We will get right upper quadrant ultrasound. Plan of care was discussed with the patient in detail. He stated understanding. Job ID: [id number]
[2019-02-23] MEDS ORDERED: Senokot S 8.6-50 MG TAB PO PRN (15:11)
[2019-02-23] MEDS ORDERED: Acetaminophen 325 MG TAB PO PRN (15:11)
[2019-02-23] MEDS ORDERED: Calcium Carbonate 500 MG ChewTAB PO PRN (15:11)
[2019-02-23] MEDS ORDERED: Ondansetron ODT 4 MG TAB PO PRN (15:11)
[2019-02-23] MEDS ORDERED: Ondansetron PF 4 MG/2 ML Vial IVP PRN (15:11)
[2019-02-23] MEDS ORDERED: Nitroglycerin 0.4 MG TAB (25 Tab Bottle) PO PRN (15:19)
[2019-02-23] MEDS ORDERED: traMADol HCl 50 MG TAB PO PRN (15:21)
[2019-02-23 15:44] LABS: CKMB 11.4 ng/mL (0-6.6)
[2019-02-23 17:00] VITALS: BMI 17.8
[2019-02-23 17:43] LABS: Critical Call Chem Troponin I RESULT DECREASING
[2019-02-23 18:06] LABS: CKMB 10.7 ng/mL (0-6.6); Critical Call CKMB RESULT DECREASING
[2019-02-23] MEDS: Carvedilol 3.125 MG TAB PO SCH (18:37)
[2019-02-23] MEDS: Sevelamer Carbonate 800 MG TAB PO SCH (19:58)
[2019-02-23] MEDS: Atorvastatin Calcium 40 MG TAB PO SCH (19:59)
[2019-02-23] MEDS: Mirtazapine 15 MG TAB PO SCH (19:59)
--- NOTE | 2019-02-24 02:18 | CON ---
DATE OF CONSULTATION: HISTORY OF PRESENT ILLNESS: Min Espino is a 73-year-old black male with history of multiple myeloma for the last 3 years and end-stage renal disease, on dialysis. He also had history of atrial fibrillation during one of his hospitalizations in [place] as best he can recall. Over the last several days, he has had increasing weakness and fatigue and will become very dyspneic with just taking a few steps. He denies any PND or orthopnea. He denies any stump edema. He denies any chest, arm, or neck pressure, tightness, or burning. He has been found to have evidence of a non-STEMI on his blood test. PAST MEDICAL HISTORY: End-stage renal disease, on dialysis; multiple myeloma, hypertension, peripheral vascular disease, chronic anemia, hypercholesterolemia, anxiety, history of GI bleeding. PAST SURGICAL HISTORY: Bilateral qkwcj-ttc-cwnt amputation for peripheral vascular disease. MEDICATIONS: 1. Aspirin 81 daily, which he has held for bone marrow biopsy that is scheduled for tomorrow. 2. Atorvastatin 80 at bedtime. 3. Carvedilol 3.125 b.i.d. 4. Decadron 10 tablets q.7 days. 5. Ferrous sulfate 325 b.i.d. 6. Ninlaro 3 mg q.7 days. 7. Revlimid 5 mg q.28 days. 8. Mircera 100 mcg IM q.14 days. 9. Mirtazapine one tablet at bedtime. 10. Renvela 2400 mg t.i.d. 11. Tramadol 1-2 tablets q.6 hours p.r.n. 12. Ambien 5 mg at bedtime. ALLERGIES: LINCOSAMIDES, GENTAMICIN AND PENICILLIN. SOCIAL HISTORY: He smoked in the past. He does not drink. FAMILY HISTORY: Negative for coronary artery disease. REVIEW OF SYSTEMS: A 10-point review of systems is otherwise unremarkable. PHYSICAL EXAMINATION: VITAL SIGNS: Blood pressure 136/65, pulse of 50. HEENT: PERRL. NECK: Supple. CHEST: Clear. CARDIAC: S1 and S2 are normal. There is no S3 or S4. There is a 2/6 holosystolic murmur at the apex. ABDOMEN: Normal bowel sounds without tenderness or organomegaly. EXTREMITIES: Reveal bilateral BKA with no edema. Femoral pulses normal. NEUROLOGICAL: Grossly intact. SKIN: Warm and dry. LABORATORY DATA: EKG revealed sinus bradycardia with premature atrial beats, but otherwise unremarkable. Hemoglobin 7.6, hematocrit 23.6, white count 6000, platelets 131,000. INR 1.2. Sodium 135, potassium 4.3, chloride 101, carbon dioxide 23, BUN 56, creatinine 9.53. AST 252, ALT 99, alkaline phosphatase 431. CK-MB 12.8. Troponin I 0.627. IMPRESSION: 1. Qgs-LZ-ludgajgqo myocardial infarction. 2. Systolic murmur. 3. Chronic anemia. 4. History of multiple myeloma. 5. End-stage renal disease, on dialysis. 6. Peripheral vascular disease, status post bilateral BKA. 7. Hypertension. 8. Hypercholesterolemia. 9. Former smoker. 10. Anxiety. 11. History of GI bleed in the past. 12. Abnormal LFTs of uncertain etiology. PLAN: Echocardiogram will be performed to reassess left ventricular function. Consideration may need to be given to cardiac catheterization to better define his anatomy after discussion with Oncology. Job ID: [id number] MING
[2019-02-24 05:41] LABS: ALT (SGPT) 88 U/L (8-55); AST (SGOT) 208 U/L (5-34); Albumin 2.3 g/dL (3.4-4.8); Alkaline Phosphatase 404 U/L (40-150); Anion Gap 17 mmol/L (10-20); BUN (Urea Nitrogen) 66 mg/dL (8.4-25.7); Bilirubin, Total 0.7 mg/dL (0.2-1.2); Calc. Creatinine Clearance 5 mL/min (70-130); Calcium 7.8 mg/dL (7.8-10.44); Carbon Dioxide 22 mmol/L (23-31); Cardiac Risk 5.1 (Less than 4.5); Chloride 101 mmol/L (98-107); Cholesterol 112 mg/dl (< 200 Desired); Estimated GFR-MDRD 6; Globulin 3.2 g/dL (2.4-3.5); Glucose 78 mg/dL (83-110); HDL Cholesterol 22 mg/dL (>60 Neg Risk); LDL Cholesterol, Calculated 72 mg/dL; Potassium 4.5 mmol/L (3.5-5.1); Protein, Total 5.5 g/dL (5.8-8.1); Sodium 135 mmol/L (136-145); Triglycerides 91 mg/dL (Less than 150)
[2019-02-24 05:45] LABS: Band 5 % (5-11); Eosinophils 4 % (0-10); Hemoglobin 7.2 g/dL (14.0-18.0); Hypochromia SLIGHT = 6-15 cells (100X) (0-5/hpf); Lymphocytes 26 % (21-51); MDiff Complete? YES; Mean Corpuscular HGB CONC 32.2 g/dL (32.0-36.0); Mean Corpuscular Hemoglobin 29.7 pg (27.0-31.0); Mean Platelet Volume 11.8 fL (7.4-10.4); Monocytes 4 % (0-10); Neutrophil 61 % (42-75); Platelet Count 137 thou/uL (130-400); Platelet Morphology Comment Appears Adequate; RBC Distribution Width 15.9 % (11.5-14.5); Red Blood Cell (RBC) Count 2.43 mill/uL (4.70-6.10); Target Cells SLIGHT = 2-5 cells (100X) (0-1/hpf); White Blood Cell (WBC) Count 5.6 thou/uL (4.8-10.8)
[2019-02-24] MEDS: Sevelamer Carbonate 800 MG TAB PO SCH ×3 (08:57→19:51)
[2019-02-24] MEDS: Aspirin 325 mg Enteric Coated Tablet PO SCH (08:57)
[2019-02-24] MEDS: Carvedilol 3.125 MG TAB PO SCH ×2 (08:57→17:52)
--- NOTE | 2019-02-24 11:18 | PDOC.PN ---
- Subjective Encounter Start Date: 02/24/19 Encounter Start Time: 10:00 Subjective: no chest pain or sob - Objective Resuscitation Status - Order Detail: 02/23/19 15:11 Resuscitation Status Routine Resuscitation Status: FULL: Full Resuscitation MAR Reviewed: Yes Vital Signs & Weight: Vital Signs (12 hours) Temp Pulse Resp BP Pulse Ox 02/24/19 07:29 98.4 F 54 L 16 138/69 95 02/24/19 02:55 98.2 F 51 L 17 130/64 93 L Weight Admit Weight 110 lb 3.698 oz Weight 93 lb I&O: 02/23/19 02/24/19 02/25/19 06:59 06:59 06:59 Intake Total 240 Balance 240 Result Diagrams: 02/24/19 04:49 02/24/19 04:49 Phys Exam - Physical Examination HEENT: PERRLA, moist MMs Neck: no JVD, supple Respiratory: no wheezing, no rales Cardiovascular: RRR, no significant murmur Gastrointestinal: soft, no distention, positive bowel sounds Musculoskeletal: pulses present b/l bka Neurological: non-focal, moves all 4 limbs Psychiatric: normal affect, A&O x 3 Dx/Plan (1) NSTEMI (non-ST elevated myocardial infarction) Code(s): I21.4 - NON-ST ELEVATION (NSTEMI) MYOCARDIAL INFARCTION Status: Acute (2) Chronic anemia Code(s): D64.9 - ANEMIA, UNSPECIFIED Status: Chronic (3) ESRD (end stage renal disease) on dialysis Code(s): N18.6 - END STAGE RENAL DISEASE; Z99.2 - DEPENDENCE ON RENAL DIALYSIS Status: Chronic Comment: On HD per Dr Velez (4) HTN (hypertension) Code(s): I10 - ESSENTIAL (PRIMARY) HYPERTENSION Status: Chronic Qualifiers: Hypertension type: essential hypertension Qualified Code(s): I10 - Essential (primary) hypertension (5) Hx of below knee amputation Code(s): Z89.519 - ACQUIRED ABSENCE OF UNSPECIFIED LEG BELOW KNEE Status: Chronic Comment: b/l (6) Multiple myeloma Code(s): C90.00 - MULTIPLE MYELOMA NOT HAVING ACHIEVED REMISSION Status: Chronic (7) PVD (peripheral vascular disease) Code(s): I73.9 - PERIPHERAL VASCULAR DISEASE, UNSPECIFIED Status: Chronic (8) Afib Code(s): I48.91 - UNSPECIFIED ATRIAL FIBRILLATION Status: Chronic Qualifiers: Atrial fibrillation type: paroxysmal Qualified Code(s): I48.0 - Paroxysmal atrial fibrillation (9) Dyslipidemia Code(s): E78.5 - HYPERLIPIDEMIA, UNSPECIFIED Status: Chronic - Plan echo shows ef of 35-40%, likely cath per cardio adv -: will transfuse to Hb of 9g in view of nstemi -: continue asp, lipitor, coreg -: hemostable -: mobilize as tolerated with prosthesis * . was scheduled for BM biopsy today? staff to inform about pt being here. Review of Systems - Medications/Allergies Allergies/Adverse Reactions: Allergies Allergy/AdvReac Type Severity Reaction Status Date / Time gentamicin Allergy Verified 08/04/18 15:57 Lincosamides Allergy Verified 08/04/18 15:57 Penicillins Allergy "swells, Verified 08/04/18 15:57 can't breathe" Medications: Current Medications Acetaminophen (Tylenol) 650 mg PO Q4H PRN PRN Reason: Headache/Fever/Mild Pain (1-3) Aspirin (Ecotrin) 325 mg PO DAILY [facility] Last Admin: 02/24/19 08:57 Dose: 325 mg Atorvastatin Calcium (Lipitor) 80 mg PO [facility] Last Admin: 02/23/19 19:59 Dose: 80 mg Calcium Carbonate (Tums) 1,000 mg PO Q4H PRN PRN Reason: Heartburn or Indigestion Carvedilol (Coreg) 3.125 mg PO BID[facility] Last Admin: 02/24/19 08:57 Dose: 3.125 mg Mirtazapine (Remeron) 15 mg PO [facility] Last Admin: 02/23/19 19:59 Dose: 15 mg Nitroglycerin (Nitrostat) 0.4 mg PO Q5MIN PRN PRN Reason: Chest Pain Ondansetron HCl (Zofran Odt) 4 mg PO Q6H PRN PRN Reason: Nausea/Vomiting Ondansetron HCl (Zofran) 4 mg IVP Q6H PRN PRN Reason: Nausea/Vomiting Pantoprazole Sodium (Protonix) 40 mg PO DAILY [facility] Last Admin: 02/24/19 08:58 Dose: 40 mg Senna/Docusate Sodium (Senokot S) 2 tab PO BID PRN PRN Reason: Constipation Sevelamer Carbonate (Renvela) 2,400 mg PO TID [facility] Last Admin: 02/24/19 08:57 Dose: 2,400 mg Sodium Chloride (Flush - Normal Saline) 10 ml IVF PRN PRN PRN Reason: Saline Flush Tramadol HCl (Ultram) 50 mg PO Q6H PRN PRN Reason: Moderate Pain (4-6) Stop: 02/24/19 15:22
--- NOTE | 2019-02-24 17:16 | ULT ---
ULTRASOUND ABDOMEN COMPLETE 02/24/19 HISTORY: History of elevated liver function enzymes, cholelithiasis. TECHNIQUE: Hanley-scale ultrasound evaluation of the liver, gallbladder, spleen, pancreas, common bile duct, kidne ys, abdominal aorta, and inferior vena cava (IVC). FINDINGS: Scattered hypoechoic foci throughout the hepatic parenchyma are present indicative of cyst formation. The largest of which measures approximately 2 cm. There is a contracted gallbladder with cholelithia sis. Mckeon's sign is reported as negative by the changeover operator. The common duct measures between 7 and 8 mm, borderline in size for patient's age. Mild intra-abdominal ascites is present. Portions of the pancreas are obscured from view by bowel content which does limit assessment. No overt hydronephrosi s of the small sized kidneys, bilaterally. Spleen reveals no focal lesion. There is vascular calcific ation of the imaged aorta. The visualized IVC is grossly unremarkable. IMPRESSION: 1. Contracted gallbladder, with cholelithiasis. Borderline sized common duct. Correlate with renny iary laboratory values. 2. Mild intra-abdominal ascites. 3. Numerous hepatic cysts. POS: [facility]
[2019-02-24] MEDS: Atorvastatin Calcium 40 MG TAB PO SCH (19:51)
[2019-02-24] MEDS: Mirtazapine 15 MG TAB PO SCH (19:51)
[2019-02-25 07:59] LABS: Hemoglobin 10.2 g/dL (14.0-18.0); Mean Corpuscular HGB CONC 32.3 g/dL (32.0-36.0); Mean Corpuscular Hemoglobin 28.9 pg (27.0-31.0); Mean Corpuscular Volume 89.5 fL (78.0-98.0); Mean Platelet Volume 11.7 fL (7.4-10.4); Platelet Count 131 thou/uL (130-400); RBC Distribution Width 16.3 % (11.5-14.5); Red Blood Cell (RBC) Count 3.53 mill/uL (4.70-6.10); White Blood Cell (WBC) Count 5.6 thou/uL (4.8-10.8)
--- NOTE | 2019-02-25 08:11 | CON ---
DATE OF CONSULTATION: 02/24/2019 REASON FOR CONSULT: History of chronic anemia related to myeloma, renal failure, and occult GI blood loss, and elevated liver enzymes. HISTORY OF PRESENT ILLNESS: Mr. Espino is a 73-year-old who is diagnosed with multiple myeloma several years ago and presented with right upper quadrant pain and abnormal liver enzymes and large globulin gap and some profound anemia, and renal failure. 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 He has complications a few years ago of sepsis at which time, he ended up with BKA on both sides. 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 Intermittently, since he has required blood transfusions, it is unclear if he is actually having blood loss as he has been on iron, so his stool is always dark. He takes iron orally and not IV, on dialysis. Ultimately, Hematology was considering biopsy in his bone this week, but he was admitted with chest pain and shortness of breath in the emergency room. He also was having worsening weakness and fatigue, missed a few steps. He was found to have evidence of mildly elevated troponin on admission with non-STEMI on by test and EKG. Here in the hospital, he is also found to have elevated liver enzymes. These are fluctuating up and down over the years done. However, on his initial presentation he was found with some of this, did not have any evidence of choledocholithiasis at that time. He does have known gallstones. He denies any upper abdominal pain. Ultrasound showed decompressed gallbladder and borderline bile duct of 7 to 8 mm. PAST MEDICAL HISTORY: 1. End-stage renal disease, on dialysis. 2. Multiple myeloma, remission per Hematology. 3. Hypertension. 4. Peripheral vascular disease. 5. Chronic anemia with extensive workup in the past likely multifactorial with definite component of GI blood loss. 6. Dyslipidemia. 7. Anxiety. 8. Hypertension. PAST SURGICAL HISTORY: Bilateral [id number] amputations, peripheral vascular disease, multiple prior endoscopies, enteroscopies, capsule endoscopies and colonoscopies. ALLERGIES: GENTAMICIN, PENICILLIN, AND LINCOSAMIDE. SOCIAL HISTORY: The patient lives with family. He is a former smoker. He does not drink, smoke, or use drugs. FAMILY HISTORY: Positive for hypertension. REVIEW OF SYSTEMS: Positive for some nausea. He takes his myeloma medicine. He does not remember the name of that medicine, anorexia, no melena, hematochezia, or hematemesis. MEDICATIONS: At home; 1. Tramadol. 2. Zolpidem. 3. Renvela. 4. Mirtazapine. 5. Mircera or methoxy polyethylene glycol-epoetin beta. 6. Revlimid. 7. Ninlaro. 8. Ferrous sulfate 325 b.i.d. 9. Dexamethasone 10 mg p.o. daily. 10. Coreg 3.125. 11. Atorvastatin. 12. Aspirin. Medicines here. He is on, 1. Tylenol. 2. Ecotrin. 3. Lipitor. 4. Tums. 5. Coreg. 6. Remeron. 7. Nitrostat. 8. Zofran p.r.n. 9. Protonix. 10. Renvela. PHYSICAL EXAMINATION: VITAL SIGNS: Temperature 97, respiratory rate 16, blood pressure 137/64. ABDOMEN: Soft and nontender. There is no palpable hepatosplenomegaly. His bowel sounds are quiescent. He is a little bit firm, but there is no rebound or guarding. EXTREMITIES: No clubbing, cyanosis, or edema. He has bilateral BKAs. LABORATORY DATA: White count 5.6, hemoglobin is 7.2, platelet count of 137. First transfusion was today and received 2 units, last transfusion before that was on 01/29 and he received 2 units that day. In August of this year, he received 2 units of blood; and in September 2; none in October; 3 in November; and 4 in December. Sodium 135, potassium 4.5, BUN and creatinine are 66 and 10. AST is 208, was 252 on admission; ALT is 88, was 98; alkaline phosphatase 404, was 431. These have been up high like this in the past in 2016 and other times have been lower. Previous hepatitis A, B, and C serologies negative. On 01/27/2019, the patient's free kappa light chain was 279, which it would have been 234 and 229 going back last couple of times in July and in October, the free kappa light chain had been 178 and 168 before that. ASSESSMENT: 1. Anemia. We will talk with Hematology and see if the what they feel about his myeloma at this point in time, has really exhausted all attempts at controlling type of intestinal bleeding. He does have elevated liver enzymes, which may be reasonable to evaluate ERCP to rule out hemobilia, although he has had no pain that typically goes along with. 2. We will get an MRCP to look at his bile duct tomorrow. 3. LFT elevation, could be related to his component of heart failure, could be related to primary liver disease or stone disease in the biliary tree or even related to bone marrow infiltration. PLAN: 1. MRCP tomorrow with possible ERCP to follow that depending on those findings. 2. We will talk with Hematology tomorrow. Job ID: [id number]
[2019-02-25 08:17] LABS: ALT (SGPT) 89 U/L (8-55); AST (SGOT) 203 U/L (5-34); Albumin 2.5 g/dL (3.4-4.8); Alkaline Phosphatase 407 U/L (40-150); Anion Gap 12 mmol/L (10-20); BUN (Urea Nitrogen) 28 mg/dL (8.4-25.7); Bilirubin, Total 0.8 mg/dL (0.2-1.2); Calc. Creatinine Clearance 7 mL/min (70-130); Carbon Dioxide 29 mmol/L (23-31); Chloride 97 mmol/L (98-107); Estimated GFR-MDRD 11; Globulin 3.4 g/dL (2.4-3.5); Glucose 63 mg/dL (83-110); Potassium 4.2 mmol/L (3.5-5.1); Protein, Total 5.9 g/dL (5.8-8.1); Sodium 134 mmol/L (136-145)
[2019-02-25] MEDS: Aspirin 325 mg Enteric Coated Tablet PO SCH (08:32)
[2019-02-25] MEDS: Carvedilol 3.125 MG TAB PO SCH ×2 (08:32→16:01)
[2019-02-25 10:09] LABS: Band 8 % (5-11); Eosinophils 19 % (0-10); Lymphocytes 22 % (21-51); MDiff Complete? YES; Monocytes 19 % (0-10); Neutrophil 32 % (42-75); Platelet Morphology Comment Appears Adequate; Polychromasia SLIGHT = 2-3 cells (100X) (0-2/hpf); Target Cells SLIGHT = 2-5 cells (100X) (0-1/hpf)
[2019-02-25] MEDS: Sevelamer Carbonate 800 MG TAB PO SCH ×3 (10:40→20:06)
--- NOTE | 2019-02-25 12:46 | PDOC.PN ---
- Subjective Encounter Start Date: 02/25/19 Encounter Start Time: 11:00 Subjective: no sob or abd pain now -: no nausea or vomiting -: is npo for mrcp and possible ercp - Objective Resuscitation Status - Order Detail: 02/23/19 15:11 Resuscitation Status Routine Resuscitation Status: FULL: Full Resuscitation MAR Reviewed: Yes Vital Signs & Weight: Vital Signs (12 hours) Temp Pulse Resp BP BP BP Pulse Ox 02/25/19 11:42 98.2 F 53 L 18 133/71 97 02/25/19 08:00 98.2 F 55 L 18 138/67 100 02/25/19 04:00 98.6 F 51 L 18 149/65 H 97 Weight Admit Weight 110 lb 3.698 oz Weight 93 lb I&O: 02/24/19 02/25/19 02/26/19 06:59 06:59 06:59 Intake Total 240 1100 340 Output Total 1000 Balance 240 100 340 Result Diagrams: 02/25/19 07:35 02/25/19 07:35 Phys Exam - Physical Examination HEENT: PERRLA, moist MMs Neck: supple jvd+ Respiratory: no wheezing, no rales Cardiovascular: RRR, no significant murmur Gastrointestinal: soft, non-tender, positive bowel sounds Musculoskeletal: pulses present b/l bka Neurological: non-focal, moves all 4 limbs Psychiatric: A&O x 3 Dx/Plan (1) NSTEMI (non-ST elevated myocardial infarction) Code(s): I21.4 - NON-ST ELEVATION (NSTEMI) MYOCARDIAL INFARCTION Status: Acute (2) Chronic anemia Code(s): D64.9 - ANEMIA, UNSPECIFIED Status: Chronic (3) ESRD (end stage renal disease) on dialysis Code(s): N18.6 - END STAGE RENAL DISEASE; Z99.2 - DEPENDENCE ON RENAL DIALYSIS Status: Chronic Comment: On HD per Dr Velez (4) HTN (hypertension) Code(s): I10 - ESSENTIAL (PRIMARY) HYPERTENSION Status: Chronic Qualifiers: Hypertension type: essential hypertension Qualified Code(s): I10 - Essential (primary) hypertension (5) Hx of below knee amputation Code(s): Z89.519 - ACQUIRED ABSENCE OF UNSPECIFIED LEG BELOW KNEE Status: Chronic Comment: b/l (6) Multiple myeloma Code(s): C90.00 - MULTIPLE MYELOMA NOT HAVING ACHIEVED REMISSION Status: Chronic (7) PVD (peripheral vascular disease) Code(s): I73.9 - PERIPHERAL VASCULAR DISEASE, UNSPECIFIED Status: Chronic (8) Afib Code(s): I48.91 - UNSPECIFIED ATRIAL FIBRILLATION Status: Chronic Qualifiers: Atrial fibrillation type: paroxysmal Qualified Code(s): I48.0 - Paroxysmal atrial fibrillation (9) Dyslipidemia Code(s): E78.5 - HYPERLIPIDEMIA, UNSPECIFIED Status: Chronic (10) CHF (congestive heart failure) Code(s): I50.9 - HEART FAILURE, UNSPECIFIED Status: Acute Qualifiers: Heart failure type: combined systolic and diastolic Heart failure chronicity: acute Qualified Code(s): I50.41 - Acute combined systolic ( congestive) and diastolic (congestive) heart failure Comment: ef of 35%, class C - Plan is going for MRCP this afternoon, possible ercp if needed -: cath on saturday -: continue coreg at current dose (hr around 50's), add hydralazine tid -: asp, lipitor and protonix -: he ambulates with prosthesis on both legs * . Review of Systems - Medications/Allergies Allergies/Adverse Reactions: Allergies Allergy/AdvReac Type Severity Reaction Status Date / Time gentamicin Allergy Verified 08/04/18 15:57 Lincosamides Allergy Verified 08/04/18 15:57 Penicillins Allergy "swells, Verified 08/04/18 15:57 can't breathe" Medications: Current Medications Acetaminophen (Tylenol) 650 mg PO Q4H PRN PRN Reason: Headache/Fever/Mild Pain (1-3) Aspirin (Ecotrin) 325 mg PO DAILY [facility] Last Admin: 02/25/19 08:32 Dose: 325 mg Atorvastatin Calcium (Lipitor) 80 mg PO [facility] Last Admin: 02/24/19 19:51 Dose: 80 mg Calcium Carbonate (Tums) 1,000 mg PO Q4H PRN PRN Reason: Heartburn or Indigestion Carvedilol (Coreg) 3.125 mg PO BID[facility] Last Admin: 02/25/19 08:32 Dose: 3.125 mg Mirtazapine (Remeron) 15 mg PO [facility] Last Admin: 02/24/19 19:51 Dose: 15 mg Nitroglycerin (Nitrostat) 0.4 mg PO Q5MIN PRN PRN Reason: Chest Pain Ondansetron HCl (Zofran Odt) 4 mg PO Q6H PRN PRN Reason: Nausea/Vomiting Ondansetron HCl (Zofran) 4 mg IVP Q6H PRN PRN Reason: Nausea/Vomiting Pantoprazole Sodium (Protonix) 40 mg PO DAILY [facility] Last Admin: 02/25/19 08:32 Dose: 40 mg Senna/Docusate Sodium (Senokot S) 2 tab PO BID PRN PRN Reason: Constipation Sevelamer Carbonate (Renvela) 2,400 mg PO TID [facility] Last Admin: 02/25/19 10:40 Dose: Not Given Sodium Chloride (Flush - Normal Saline) 10 ml IVF PRN PRN PRN Reason: Saline Flush
[2019-02-25] MEDS: hydrALAZINE 25 MG TAB PO SCH ×2 (15:07→20:07)
--- NOTE | 2019-02-25 16:37 | MRI ---
MRI Abdomen WO Con History: Elevated alkaline phosphatase. Gallstones. Comparison: Ultrasound abdomen prior day Findings: Multiplanar multisequence MRI of the abdomen was performed without contrast. 2-D rendering provided for MRCP. There is diffusely decreased T2 signal intensity within the liver and spleen. Spleen measures 12.2 cm in length. There is abnormal increased hepatic signal on the out of phase imaging sequence. Multiple hepatic cysts. Small to moderate ascites. No intrahepatic biliary dilatation. The common bile duct is dilated up to 9 mm to the level of the am shannan without obstructing choledocholithiasis. No cholelithiasis. Small renal T2 hyperintense foci likely cysts. No marrow infiltrative process. Impression: 1. 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 2. Abnormal dilatation of the common bile duct without choledocholithiasis. Common bile duct is dilat ed to the level of the ampulla suggesting ampullary stenosis. 3. Small volume ascites. 4. Hepatic cysts and renal cysts. 5. 2 mm T2 hyperintense foci of the pancreatic tail with possible intraductal extension likely of lit tle significance in a patient of this age. Follow-up pancreatic protocol MRI in one year recommended.
[2019-02-25] MEDS ORDERED: Communication Order-Pharmacy FS SCH (18:00)
--- NOTE | 2019-02-25 19:02 | PRG ---
DATE OF SERVICE: 02/25/2019 SUBJECTIVE: Mr. Espino is resting comfortably in bed. He has no distress. OBJECTIVE: VITAL SIGNS: Temperature is 98, pulse 65, blood pressure 138/70. ABDOMEN: Soft and nontender. DIAGNOSTIC STUDIES: White count 5.6, hemoglobin 10.2 after transfusion. Platelet count is 131. AST is 230, ALT 289, alkaline phosphatase is 407. His MRCP showed dilated common bile duct. No overt filling defects. 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 ASSESSMENT AND PLAN: 1. Multiple myeloma reportedly in remission. I have talked with Dr. Mooney on the phone about this. She feels the patient is in remission. They are only proceeding with a bone marrow biopsy as he has been having issues with anemia recently, which has likely been attributed to GI loss. Extensive workup, as noted above, has been negative. 2. Anemia, status post transfusion. Stable. No evidence of acute GI bleed. 3. Non-Q-wave myocardial infarction. I have talked with Dr. Sharma. He is going to cath him on Saturday, but does not plan to place a drug-eluting stent with regard to his multiple anemia problems. 4. Elevated liver enzymes with gallstones, dilated duct. MRCP showed no obvious filling defects. However, the MRCPs have not been accurate here at this facility. He has no overt pain, but with the sharp apprising numbers and gallstones and dilated duct, choledocholithiasis is strong possibility. He shows no signs of cholangitis. Differential diagnosis includes passive congestion of liver from his heart failure, which is a little bit worse than it has been in the past. However, he has no evidence of tricuspid regurgitation or right atrial dilatation to suggest right heart failure and passive congestion. Other differential would include infiltration of bone marrow. Bone marrow biopsy is planned upcoming. We will go ahead and proceed with ERCP tomorrow. I have talked with Dr. Sharma, his gore stitcher who prefers to go and do that before he embarks on the catheterization. He feels like he is stable from that standpoint. 5. End-stage renal disease, on dialysis. We will dialysis him tomorrow morning. 6. Congestive heart failure. He has EF of 35% to 40%, mild TR, right atrium, mild mitral regurgitation. Risks, benefits, and possible complications of ERCP were explained to the patient and his family, and we will proceed tomorrow. Job ID: [id number]
[2019-02-25] MEDS: Mirtazapine 15 MG TAB PO SCH (20:06)
[2019-02-25] MEDS: Atorvastatin Calcium 40 MG TAB PO SCH (20:06)
[2019-02-26 06:27] LABS: Band 2 % (5-11); Eosinophils 11 % (0-10); Hemoglobin 9.4 g/dL (14.0-18.0); Lymphocytes 14 % (21-51); MDiff Complete? YES; Mean Corpuscular HGB CONC 32.2 g/dL (32.0-36.0); Mean Corpuscular Hemoglobin 29.3 pg (27.0-31.0); Mean Corpuscular Volume 90.8 fL (78.0-98.0); Mean Platelet Volume 11.3 fL (7.4-10.4); Monocytes 18 % (0-10); Neutrophil 51 % (42-75); Platelet Count 139 thou/uL (130-400); Platelet Morphology Comment Appears Adequate; RBC Distribution Width 16.2 % (11.5-14.5); Red Blood Cell (RBC) Count 3.22 mill/uL (4.70-6.10); White Blood Cell (WBC) Count 5.6 thou/uL (4.8-10.8)
[2019-02-26 06:35] LABS: ALT (SGPT) 88 U/L (8-55); AST (SGOT) 208 U/L (5-34); Albumin 2.4 g/dL (3.4-4.8); Alkaline Phosphatase 373 U/L (40-150); Anion Gap 15 mmol/L (10-20); BUN (Urea Nitrogen) 41 mg/dL (8.4-25.7); Bilirubin, Total 0.6 mg/dL (0.2-1.2); Calc. Creatinine Clearance 5 mL/min (70-130); Calcium 8.4 mg/dL (7.8-10.44); Carbon Dioxide 25 mmol/L (23-31); Chloride 99 mmol/L (98-107); Estimated GFR-MDRD 9; Globulin 3.3 g/dL (2.4-3.5); Glucose 76 mg/dL (83-110); Potassium 4.7 mmol/L (3.5-5.1); Protein, Total 5.7 g/dL (5.8-8.1); Sodium 134 mmol/L (136-145)
[2019-02-26] MEDS: hydrALAZINE 25 MG TAB PO SCH ×3 (08:00→20:52)
[2019-02-26] MEDS: Carvedilol 3.125 MG TAB PO SCH ×2 (12:37→17:25)
[2019-02-26] MEDS: Aspirin 325 mg Enteric Coated Tablet PO SCH (12:37)
[2019-02-26] MEDS: Sevelamer Carbonate 800 MG TAB PO SCH ×3 (12:38→20:53)
--- NOTE | 2019-02-26 14:20 | PDOC.PN ---
- Subjective Encounter Start Date: 02/26/19 Encounter Start Time: 10:30 Subjective: getting HD, no sob or abd pain -: breathing better, no chest pain or palp - Objective Resuscitation Status - Order Detail: 02/23/19 15:11 Resuscitation Status Routine Resuscitation Status: FULL: Full Resuscitation MAR Reviewed: Yes Vital Signs & Weight: Vital Signs (12 hours) Temp Pulse Resp BP BP Pulse Ox 02/26/19 08:00 57 L 134/71 93 L 02/26/19 07:29 98.6 F 57 L 18 134/71 93 L 02/26/19 04:00 98.1 F 62 18 129/67 97 Weight Admit Weight 110 lb 3.698 oz Weight 91 lb 0.815 oz I&O: 02/25/19 02/26/19 02/27/19 06:59 06:59 06:59 Intake Total 1100 1270 0 Output Total 1000 250 Balance 100 1020 0 Result Diagrams: 02/26/19 05:07 02/26/19 05:07 Phys Exam - Physical Examination HEENT: PERRLA, moist MMs Neck: no JVD, supple Respiratory: no wheezing, no rales Cardiovascular: RRR, no significant murmur Gastrointestinal: soft, non-tender, positive bowel sounds Musculoskeletal: pulses present b/l bka Neurological: non-focal, moves all 4 limbs Psychiatric: normal affect, A&O x 3 Dx/Plan (1) NSTEMI (non-ST elevated myocardial infarction) Code(s): I21.4 - NON-ST ELEVATION (NSTEMI) MYOCARDIAL INFARCTION Status: Acute (2) Chronic anemia Code(s): D64.9 - ANEMIA, UNSPECIFIED Status: Chronic (3) ESRD (end stage renal disease) on dialysis Code(s): N18.6 - END STAGE RENAL DISEASE; Z99.2 - DEPENDENCE ON RENAL DIALYSIS Status: Chronic Comment: On HD per Dr Velez (4) HTN (hypertension) Code(s): I10 - ESSENTIAL (PRIMARY) HYPERTENSION Status: Chronic Qualifiers: Hypertension type: essential hypertension Qualified Code(s): I10 - Essential (primary) hypertension (5) Hx of below knee amputation Code(s): Z89.519 - ACQUIRED ABSENCE OF UNSPECIFIED LEG BELOW KNEE Status: Chronic Comment: b/l (6) Multiple myeloma Code(s): C90.00 - MULTIPLE MYELOMA NOT HAVING ACHIEVED REMISSION Status: Chronic (7) PVD (peripheral vascular disease) Code(s): I73.9 - PERIPHERAL VASCULAR DISEASE, UNSPECIFIED Status: Chronic (8) Afib Code(s): I48.91 - UNSPECIFIED ATRIAL FIBRILLATION Status: Chronic Qualifiers: Atrial fibrillation type: paroxysmal Qualified Code(s): I48.0 - Paroxysmal atrial fibrillation (9) Dyslipidemia Code(s): E78.5 - HYPERLIPIDEMIA, UNSPECIFIED Status: Chronic (10) CHF (congestive heart failure) Code(s): I50.9 - HEART FAILURE, UNSPECIFIED Status: Acute Qualifiers: Heart failure type: combined systolic and diastolic Heart failure chronicity: acute Qualified Code(s): I50.41 - Acute combined systolic ( congestive) and diastolic (congestive) heart failure Comment: ef of 35%, class C - Plan is npo for ERCP today for ampulary stenosis?/choledocholithiasi, cath in am -: hemostable -: continue asp, lipitor, coreg, hydralazine and protonix -: ambulates with prosthesis * . Review of Systems - Medications/Allergies Allergies/Adverse Reactions: Allergies Allergy/AdvReac Type Severity Reaction Status Date / Time gentamicin Allergy Verified 08/04/18 15:57 Lincosamides Allergy Verified 08/04/18 15:57 Penicillins Allergy "swells, Verified 08/04/18 15:57 can't breathe" Medications: Current Medications Acetaminophen (Tylenol) 650 mg PO Q4H PRN PRN Reason: Headache/Fever/Mild Pain (1-3) Aspirin (Ecotrin) 325 mg PO DAILY [facility] Last Admin: 02/26/19 12:37 Dose: Not Given Atorvastatin Calcium (Lipitor) 80 mg PO [facility] Last Admin: 02/25/19 20:06 Dose: 80 mg Calcium Carbonate (Tums) 1,000 mg PO Q4H PRN PRN Reason: Heartburn or Indigestion Carvedilol (Coreg) 3.125 mg PO BID-[facility] Last Admin: 02/26/19 12:37 Dose: Not Given Hydralazine HCl (Apresoline) 25 mg PO TID [facility] Last Admin: 02/26/19 08:00 Dose: Not Given Mirtazapine (Remeron) 15 mg PO [facility] Last Admin: 02/25/19 20:06 Dose: 15 mg Miscellaneous Information (Communication Order-Pharmacy) 0 each FS ONE [facility] Stop: 02/26/19 23:59 Nitroglycerin (Nitrostat) 0.4 mg PO Q5MIN PRN PRN Reason: Chest Pain Ondansetron HCl (Zofran Odt) 4 mg PO Q6H PRN PRN Reason: Nausea/Vomiting Ondansetron HCl (Zofran) 4 mg IVP Q6H PRN PRN Reason: Nausea/Vomiting Pantoprazole Sodium (Protonix) 40 mg PO DAILY [facility] Last Admin: 02/26/19 12:38 Dose: Not Given Senna/Docusate Sodium (Senokot S) 2 tab PO BID PRN PRN Reason: Constipation Sevelamer Carbonate (Renvela) 2,400 mg PO TID [facility] Last Admin: 02/26/19 12:38 Dose: Not Given Sodium Chloride (Flush - Normal Saline) 10 ml IVF PRN PRN PRN Reason: Saline Flush
--- NOTE | 2019-02-26 15:13 | PDOC.CTH ---
Cardiology Progress Note - Subjective The pt seen and examined. No overnight events. No cardiac complaints. - Objective Vital Signs Temp Pulse Resp BP BP Pulse Ox 02/26/19 08:00 57 L 134/71 93 L 02/26/19 07:29 98.6 F 57 L 18 134/71 93 L 02/26/19 04:00 98.1 F 62 18 129/67 97 Admit Weight 110 lb 3.698 oz Weight 91 lb 0.815 oz 02/25/19 02/26/19 02/27/19 06:59 06:59 06:59 Intake Total 1100 1270 0 Output Total 1000 250 Balance 100 1020 0 - Physical Examination General/Neuro: alert & oriented x3 Neck: no JVD present Lungs: other: (diminished at bases) Heart: RRR Abdomen: soft Extremities: other: (No edema; bilat BKA) - Telemetry Telemetry Rhythm: SR - Labs Result Diagrams: 02/26/19 05:07 02/26/19 05:07 Troponin/CKMB CK-MB (CK-2) 10.7 ng/mL (0-6.6) H* 02/23/19 17:04 Troponin I 0.551 ng/mL (< 0.028) H* 02/23/19 17:04 - Assessment/Plan 1. NSTEMI - possible cath tomorrow by Dr Sharma; The pt voiced he does not have any questions about the procedure and the risk of LHC. 2. Acute on Chronic Systolic HF - stable with HD; on Bblocker, not on TODD/ARB for now due to hx of CKD; 3. Chronic anemia - 4. HTN - stable 5. Elevated Liver enzyme with gallstone - Plan for ERCP today 6. ESRD with HD - HD today 7. Multiple myeloma 8. Prox Afib - remains in SR 9. Bilat BKA 10. HLD - on Statin MAR reviewed * Echo on 02/24/2019 with EF 35-40%, mod MR, mild TR, mild [place], and small pericardial effusion Review of Systems - Review of Systems Constitutional: reports: no symptoms reported EENTM: reports: no symptoms reported Respiratory: reports: no symptoms reported Cardiac (ROS): reports: no symptoms reported ABD/GI: reports: no symptoms reported : reports: no symptoms reported Musculoskeletal: reports: no symptoms reported
[2019-02-26] MEDS ORDERED: Levofloxacin 500 mg/D5W 100 ml Premix Bag ONE (15:14)
[2019-02-26] MEDS ORDERED: Indomethacin 50 MG SUPP ONE (15:18)
[2019-02-26] MEDS ORDERED: Lidocaine 1% PF 5 ML VIAL ONE (15:49)
[2019-02-26] MEDS ORDERED: Rocuronium Bromide 10 MG/ML (10ML VIAL) ONE (15:49)
[2019-02-26] MEDS ORDERED: PROPOFOL 200 MG/20 ML VIAL ONE (15:49)
[2019-02-26] MEDS ORDERED: Glycopyrrolate 0.2 MG/ML 5 ML SYRINGE ONE (15:49)
[2019-02-26] MEDS ORDERED: Iothalamate Meglumine 60% 50 ML VIAL FS ONE (15:54)
--- NOTE | 2019-02-26 18:04 | RAD ---
Exam: Intraoperative fluoroscopy for ERCP. COMPARISON: none Exposure: Fluoroscopy time 3.8 minutes; dose 23.83 mGy FINDINGS: Single fluoroscopic images demonstrates a endoscopy device. IMPRESSION: Fluoroscopy as above.
--- NOTE | 2019-02-26 20:21 | OP ---
DATE OF PROCEDURE: 02/26/2019 PREPROCEDURE DIAGNOSES: 1. Vague epigastric pain, resolved. 2. Dilated intrahepatic duct on abdominal ultrasound, 7 to 8 mm. 3. MRCP with prominent bile duct to 9 mm with no evidence of choledocholithiasis, and dilated ampulla suggestive of ampullary stenosis versus ampullary tumor. 4. Elevated alkaline phosphatase at 430 on admission, now 373. Normal bilirubin, AST and ALT . ANESTHESIA: General anesthesia. 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 DESCRIPTION OF PROCEDURE: After the patient was informed of the risks, benefits, and possible complications of endoscopy including perforation, reaction to medication, and aspiration, informed consent was obtained. The patient was brought to endoscopy suite, where he was sedated in gradual fashion. Once he was comfortable and intubated, he was placed in prone position on fluoroscopy table. Two Indocin suppositories were placed in the rectal vault. The side-viewing endoscope was then advanced to the esophagus, stomach, and second and third portions of the duodenum and slowly removed. Ampulla was brought into view. There appeared very small, non-prominent ampulla. There was bile staining around that. There was no evidence of mass in this area. Multiple attempts to cannulate with a wire and the papillotome long and short positions with and without assistance of a hydrophilic guidewire were unsuccessful. The scope was removed after the stomach was desufflated, the procedure was aborted. RECOMMENDATIONS: The patient can move on to a heart catheterization as desired tomorrow. I talked with Dr. Sharma with regard to his prior history of GI bleeding and he needs to have as the patient is felt to be asymptomatic, no further intervention is planned for now, and depending on his course over the next several days, we can consider referral to an outside facility for EUS versus ERCP in the future. Job ID: [id number]
[2019-02-26] MEDS: Atorvastatin Calcium 40 MG TAB PO SCH (20:51)
[2019-02-26] MEDS: Mirtazapine 15 MG TAB PO SCH (20:52)
[2019-02-27 06:08] LABS: ALT (SGPT) 83 U/L (8-55); AST (SGOT) 183 U/L (5-34); Albumin 2.3 g/dL (3.4-4.8); Alkaline Phosphatase 350 U/L (40-150); Anion Gap 13 mmol/L (10-20); BUN (Urea Nitrogen) 19 mg/dL (8.4-25.7); Bilirubin, Total 0.6 mg/dL (0.2-1.2); Calc. Creatinine Clearance 8 mL/min (70-130); Calcium 8.5 mg/dL (7.8-10.44); Carbon Dioxide 26 mmol/L (23-31); Chloride 102 mmol/L (98-107); Estimated GFR-MDRD 14; Globulin 3.4 g/dL (2.4-3.5); Glucose 64 mg/dL (83-110); Lipase 238 U/L (8-78); Potassium 4.4 mmol/L (3.5-5.1); Protein, Total 5.7 g/dL (5.8-8.1); Sodium 137 mmol/L (136-145)
[2019-02-27] MEDS: Carvedilol 3.125 MG TAB PO SCH ×2 (06:26→17:52)
[2019-02-27 06:47] LABS: Band 13 % (5-11); Eosinophils 5 % (0-10); Hemoglobin 9.7 g/dL (14.0-18.0); Lymphocytes 21 % (21-51); MDiff Complete? YES; Mean Corpuscular Hemoglobin 28.5 pg (27.0-31.0); Mean Corpuscular Volume 91.7 fL (78.0-98.0); Mean Platelet Volume 11.1 fL (7.4-10.4); Monocytes 14 % (0-10); Neutrophil 47 % (42-75); Platelet Count 128 thou/uL (130-400); RBC Distribution Width 15.9 % (11.5-14.5); Red Blood Cell (RBC) Count 3.42 mill/uL (4.70-6.10); White Blood Cell (WBC) Count 5.7 thou/uL (4.8-10.8)
[2019-02-27] MEDS ORDERED: Lidocaine 1% (PF) 30 ML VIAL ONE (07:36)
[2019-02-27] MEDS ORDERED: Heparin 10,000 UNITS/1 ML VIAL ONE (07:36)
[2019-02-27] MEDS ORDERED: Fentanyl 100 MCG/2 ML VIAL ONE (08:46)
[2019-02-27] MEDS ORDERED: Midazolam HCl 2 mg/2 ml Vial ONE (08:46)
[2019-02-27] MEDS ORDERED: Iopamidol 370 76% 50 ML VIAL FS ONE (09:07)
[2019-02-27] MEDS ORDERED: Protamine Sulfate 50 MG/5 ML VIAL ONE (09:07)
[2019-02-27] MEDS ORDERED: Iopamidol 370 76% 100 ML VIAL ONE (09:07)
[2019-02-27] MEDS ORDERED: Sodium Chloride 0.9% 200 ML IV PRN ×2 (09:20→23:30)
[2019-02-27] MEDS: Aspirin 325 mg Enteric Coated Tablet PO SCH (09:30)
[2019-02-27] MEDS: hydrALAZINE 25 MG TAB PO SCH ×4 (09:30→21:37)
[2019-02-27] MEDS: Sevelamer Carbonate 800 MG TAB PO SCH ×4 (09:30→21:49)
--- NOTE | 2019-02-27 11:50 | PDOC.PN ---
- Subjective Encounter Start Date: 02/27/19 Encounter Start Time: 11:40 Subjective: no sob or abd pain -: had cath this am - Objective Resuscitation Status - Order Detail: 02/23/19 15:11 Resuscitation Status Routine Resuscitation Status: FULL: Full Resuscitation MAR Reviewed: Yes Vital Signs & Weight: Vital Signs (12 hours) Temp Pulse Resp BP BP Pulse Ox 02/27/19 09:30 62 02/27/19 08:15 96 02/27/19 07:48 98.2 F 62 16 134/66 100 02/27/19 03:50 98.2 F 67 15 124/69 100 Weight Admit Weight 110 lb 3.698 oz Weight 91 lb 0.815 oz I&O: 02/26/19 02/27/19 02/28/19 06:59 06:59 06:59 Intake Total 1270 250 Output Total 250 1000 Balance 1020 -750 Result Diagrams: 02/27/19 05:35 02/27/19 05:35 Phys Exam - Physical Examination HEENT: PERRLA, moist MMs Neck: no JVD, supple Respiratory: no wheezing, no rales Cardiovascular: RRR, no significant murmur Gastrointestinal: soft, non-tender, positive bowel sounds Musculoskeletal: no edema, pulses present Neurological: non-focal, moves all 4 limbs b/l bka Psychiatric: normal affect, A&O x 3 Dx/Plan (1) NSTEMI (non-ST elevated myocardial infarction) Code(s): I21.4 - NON-ST ELEVATION (NSTEMI) MYOCARDIAL INFARCTION Status: Acute (2) Chronic anemia Code(s): D64.9 - ANEMIA, UNSPECIFIED Status: Chronic (3) ESRD (end stage renal disease) on dialysis Code(s): N18.6 - END STAGE RENAL DISEASE; Z99.2 - DEPENDENCE ON RENAL DIALYSIS Status: Chronic Comment: On HD per Dr Velez (4) HTN (hypertension) Code(s): I10 - ESSENTIAL (PRIMARY) HYPERTENSION Status: Chronic Qualifiers: Hypertension type: essential hypertension Qualified Code(s): I10 - Essential (primary) hypertension (5) Hx of below knee amputation Code(s): Z89.519 - ACQUIRED ABSENCE OF UNSPECIFIED LEG BELOW KNEE Status: Chronic Comment: b/l (6) Multiple myeloma Code(s): C90.00 - MULTIPLE MYELOMA NOT HAVING ACHIEVED REMISSION Status: Chronic (7) PVD (peripheral vascular disease) Code(s): I73.9 - PERIPHERAL VASCULAR DISEASE, UNSPECIFIED Status: Chronic (8) Afib Code(s): I48.91 - UNSPECIFIED ATRIAL FIBRILLATION Status: Chronic Qualifiers: Atrial fibrillation type: paroxysmal Qualified Code(s): I48.0 - Paroxysmal atrial fibrillation (9) Dyslipidemia Code(s): E78.5 - HYPERLIPIDEMIA, UNSPECIFIED Status: Chronic (10) CHF (congestive heart failure) Code(s): I50.9 - HEART FAILURE, UNSPECIFIED Status: Acute Qualifiers: Heart failure type: combined systolic and diastolic Heart failure chronicity: acute Qualified Code(s): I50.41 - Acute combined systolic ( congestive) and diastolic (congestive) heart failure Comment: ef of 35%, class C - Plan hemostable -: dc plan per cardiology adv -: meds are being optimized for ef of 45% -: moderate cad on cath -: continue hydralazine, isordil, asp, lipitor, coreg * . had attempted ercp for ampullary stenosis, was not successfull, no growth seen at ampulla. Review of Systems - Medications/Allergies Allergies/Adverse Reactions: Allergies Allergy/AdvReac Type Severity Reaction Status Date / Time gentamicin Allergy Verified 08/04/18 15:57 Lincosamides Allergy Verified 08/04/18 15:57 Penicillins Allergy "swells, Verified 08/04/18 15:57 can't breathe" Medications: Current Medications Acetaminophen (Tylenol) 650 mg PO Q4H PRN PRN Reason: Headache/Fever/Mild Pain (1-3) Aspirin (Ecotrin) 81 mg PO DAILY [facility] Atorvastatin Calcium (Lipitor) 80 mg PO HS [facility] Last Admin: 02/26/19 20:51 Dose: 80 mg Calcium Carbonate (Tums) 1,000 mg PO Q4H PRN PRN Reason: Heartburn or Indigestion Carvedilol (Coreg) 3.125 mg PO BID-[facility] Last Admin: 02/27/19 06:26 Dose: 3.125 mg Ezetimibe (Zetia) 10 mg PO DAILY [facility] Hydralazine HCl (Apresoline) 25 mg PO TID [facility] Last Admin: 02/27/19 09:30 Dose: Not Given Sodium Chloride (Normal Saline 0.9%) 200 mls @ 0 mls/hr IV ONE PRN PRN Reason: SBP < 90 Stop: 02/27/19 21:00 Isosorbide Dinitrate (Isordil) 20 mg PO BID [facility] Mirtazapine (Remeron) 15 mg PO HS [facility] Last Admin: 02/26/19 20:52 Dose: 15 mg Nitroglycerin (Nitrostat) 0.4 mg PO Q5MIN PRN PRN Reason: Chest Pain Ondansetron HCl (Zofran Odt) 4 mg PO Q6H PRN PRN Reason: Nausea/Vomiting Ondansetron HCl (Zofran) 4 mg IVP Q6H PRN PRN Reason: Nausea/Vomiting Pantoprazole Sodium (Protonix) 40 mg PO DAILY [facility] Last Admin: 02/27/19 06:26 Dose: 40 mg Senna/Docusate Sodium (Senokot S) 2 tab PO BID PRN PRN Reason: Constipation Sevelamer Carbonate (Renvela) 2,400 mg PO TID [facility] Last Admin: 02/27/19 09:30 Dose: Not Given Sodium Chloride (Flush - Normal Saline) 10 ml IVF PRN PRN PRN Reason: Saline Flush
--- NOTE | 2019-02-27 17:52 | PRG ---
DATE OF SERVICE: 02/27/2019 SUBJECTIVE: Mr. Espino had a heart catheterization today. He reports he told me he is going to manage his disease medically. He is noncompliant. He has no right upper quadrant pain. He is eating well. He reports he was told he is going to go home tomorrow. OBJECTIVE: VITAL SIGNS: Temperature 98.2, pulse 63, and blood pressure . ABDOMEN: Soft, nontender. There is no rebound. There is no guarding. LABORATORY DATA: White count 5.7, hemoglobin 9.7, and platelet count 182. Liver function tests: AST and ALT are 183 and 83. Alkaline phosphatase is 350s, all continued downward trend. Lipase was mildly elevated at 238 after his attempted ERCP yesterday. He has no pain now. He is eating well. There were no complications. I think he has elevated LFTs and looking at his CT scan, he does not have any choledocholithiasis. He probably has a component of ampullary stenosis. There is no evidence of malignancy at the time of his ERCP or ampullary tumor. With regard to his gallstones, he has really had no biliary colic. He is pretty high risk for surgical procedures. If he has recurrent pain that sounds like biliary colic, I think we could consider cholecystectomy. At this time, we will follow him in the outpatient setting and see him back in the office in a couple of weeks. I have recommended a low-fat diet. Job ID: [id number]
[2019-02-27] MEDS: Atorvastatin Calcium 40 MG TAB PO SCH (21:36)
[2019-02-27] MEDS: Isosorbide Dinitrate 20 MG TAB PO SCH (21:37)
[2019-02-27] MEDS: Mirtazapine 15 MG TAB PO SCH (21:38)
[2019-02-28] MEDS: hydrALAZINE 25 MG TAB PO SCH (09:00)
[2019-02-28] MEDS: Isosorbide Dinitrate 20 MG TAB PO SCH (09:00)
[2019-02-28] MEDS ORDERED: Aspirin 81 mg Enteric Coated Tablet PO SCH (09:00)
[2019-02-28] MEDS ORDERED: Ezetimibe 10 MG TAB PO SCH (09:00)
[2019-02-28] MEDS: Carvedilol 3.125 MG TAB PO SCH (09:00)
[2019-02-28] MEDS: Sevelamer Carbonate 800 MG TAB PO SCH (09:43)
[2019-02-28 09:47] VITALS: BP 124/64; TEMP 98.6
--- NOTE | 2019-02-28 11:12 | PDOC.PN ---
- Subjective Encounter Start Date: 02/28/19 Encounter Start Time: 09:00 Subjective: getting HD, no sob or chest pain -: feels good - Objective Resuscitation Status - Order Detail: 02/23/19 15:11 Resuscitation Status Routine Resuscitation Status: FULL: Full Resuscitation MAR Reviewed: Yes Vital Signs & Weight: Vital Signs (12 hours) Temp Pulse Resp BP BP Pulse Ox 02/28/19 07:33 98.6 F 69 18 124/64 95 02/28/19 04:00 98.8 F 73 20 107/58 L 99 02/28/19 01:05 66 18 120/64 02/28/19 00:11 62 93/50 L Weight Admit Weight 110 lb 3.698 oz Weight 79 lb 12.917 oz I&O: 02/27/19 02/28/19 03/01/19 06:59 06:59 06:59 Intake Total 250 2560 Output Total 1000 0 Balance -750 2560 Result Diagrams: 02/27/19 05:35 02/27/19 05:35 Phys Exam - Physical Examination HEENT: PERRLA, moist MMs Neck: no JVD, supple Respiratory: no wheezing, no rales Cardiovascular: RRR, no significant murmur Gastrointestinal: soft, non-tender, positive bowel sounds Musculoskeletal: pulses present b/l bka Neurological: non-focal, moves all 4 limbs Psychiatric: normal affect, A&O x 3 Dx/Plan (1) NSTEMI (non-ST elevated myocardial infarction) Code(s): I21.4 - NON-ST ELEVATION (NSTEMI) MYOCARDIAL INFARCTION Status: Resolved Comment: mild to mod cad on cath (2) Chronic anemia Code(s): D64.9 - ANEMIA, UNSPECIFIED Status: Chronic (3) ESRD (end stage renal disease) on dialysis Code(s): N18.6 - END STAGE RENAL DISEASE; Z99.2 - DEPENDENCE ON RENAL DIALYSIS Status: Chronic Comment: On HD per Dr Velez (4) HTN (hypertension) Code(s): I10 - ESSENTIAL (PRIMARY) HYPERTENSION Status: Chronic Qualifiers: Hypertension type: essential hypertension Qualified Code(s): I10 - Essential (primary) hypertension (5) Hx of below knee amputation Code(s): Z89.519 - ACQUIRED ABSENCE OF UNSPECIFIED LEG BELOW KNEE Status: Chronic Comment: b/l (6) Multiple myeloma Code(s): C90.00 - MULTIPLE MYELOMA NOT HAVING ACHIEVED REMISSION Status: Chronic (7) PVD (peripheral vascular disease) Code(s): I73.9 - PERIPHERAL VASCULAR DISEASE, UNSPECIFIED Status: Chronic (8) Afib Code(s): I48.91 - UNSPECIFIED ATRIAL FIBRILLATION Status: Chronic Qualifiers: Atrial fibrillation type: paroxysmal Qualified Code(s): I48.0 - Paroxysmal atrial fibrillation (9) Dyslipidemia Code(s): E78.5 - HYPERLIPIDEMIA, UNSPECIFIED Status: Chronic (10) CHF (congestive heart failure) Code(s): I50.9 - HEART FAILURE, UNSPECIFIED Status: Acute Qualifiers: Heart failure type: combined systolic and diastolic Heart failure chronicity: acute Qualified Code(s): I50.41 - Acute combined systolic ( congestive) and diastolic (congestive) heart failure Comment: ef of 35%, class C - Plan hemostable -: may dc home -: meds reconciled for dc * .
--- NOTE | 2019-03-01 01:28 | EKG ---
Test Reason : Blood Pressure : / mmHG Vent. Rate : 058 BPM Atrial Rate : 058 BPM P-R Int : 196 ms QRS Dur : 084 ms QT Int : 478 ms P-R-T Axes : 078 -09 065 degrees QTc Int : 469 ms Sinus bradycardia with Premature atrial complexes Otherwise normal ECG Confirmed by MANUEL WATSON DO ([id number]), video effects editor KSENIA FORBES ([id number]) on 03/01/2019 1:27:42 AM Referred By: Confirmed By:MANUEL WATSON DO
--- NOTE | 2019-03-01 11:04 | DIS ---
DATE OF ADMISSION: 02/23/2019 DATE OF DISCHARGE: 02/28/2019 DISCHARGE DISPOSITION: Home. 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 PROCEDURES DONE DURING HOSPITALIZATION: The patient has had coronary angiogram done on 02/27/[address] Sharma, showed mild 3-vessel coronary artery disease with moderately impaired LV function. The patient had a 60% proximal stenosis of the lesion on second diagonal in LAD, 50% distal LAD stenosis, had 20% left main coronary artery stenosis in the midsection, 30% stenosis of proximal circumflex , 30% stenosis on the second obtuse marginal, right PDA had 30% stenosis, distal RCA had 20% stenosis. Ejection fraction on LV-gram was 35%. Echo with 2D Doppler showed an ejection fraction of 35% to 40%, moderate pulmonary regurgitation was noted. MRCP done showed markedly low T2 signal of the liver, spleen, and bone marrow suggesting hemosiderosis with mild splenomegaly, abnormal dilatation of the common bile duct without choledocholithiasis. Common duct was dilated to the level of ampulla suggesting ampullary stenosis. Small volume ascites. Common bile duct was 9 mm to the level of the ampulla without obstructive choledocholithiasis or cholelithiasis. No intrahepatic biliary dilatation was seen. There are multiple hepatic cysts with small to moderate ascites on the MRCP. On 02/26/2019, the patient had a planned ERCP procedure, which showed normal-appearing ampulla with bile coming from it, but Dr. Morgan was unable to cannulate and the suspicion was for ampullary stenosis. H and H of 9 and 31, platelet count 128, MCV 91. PT/INR 15 and 1.2. BUN and creatinine were 19 and 4.8 on the 5th. Troponin I peaked up to 0.62, CK-MB peaked up to 12.8. Total cholesterol 112, triglycerides 91, LDL 72, HDL 22. AST 252, ALT 99, alkaline phosphatase 431, total bilirubin 0.8 on the day of admission. DISCHARGE MEDICATIONS: 1. Ferrous sulfate 325 mg p.o. twice daily. 2. Ninlaro 3 mg p.o. once weekly. 3. Revlimid 5 mg capsule once every 28 days. 4. Mircera 100 mcg intramuscular once every 14 days. 5. Mirtazapine 15 mg p.o. at bedtime. 6. Renvela 2400 mg p.o. 3 times daily. 7. Ultram p.r.n. for pain. 8. Ambien 5 mg p.o. at bedtime p.r.n. 9. Aspirin 81 mg p.o. daily. 10. Atorvastatin 80 mg p.o. at bedtime. 11. Coreg 3.125 mg twice daily. 12. Zetia 10 mg p.o. daily. 13. Hydralazine 25 mg p.o. 3 times daily. 14. Isordil 20 mg p.o. twice daily. ALLERGIES: GENTAMICIN, LINCOSAMIDES, PENICILLIN. INPATIENT CONSULT: Dr. Morgan for Gastroenterology, Dr. Sharma for Cardiology. BRIEF COURSE DURING HOSPITALIZATION: The patient initially came in on the 1st with complaints of shortness of breath. He had indeterminate troponin. The patient also had elevated LFTs. He has had consultation with Dr. Sharma for Cardiology and Dr. Morgan for Gastroenterology. The patient also has a history of multiple myeloma with chronic anemia and was on multiple immunologic medications for the same. His echo with 2D Doppler showed an EF of 35%. He had MRCP done, which showed possible ampullary stenosis with no choledocholithiasis or cholecystitis. Attempted ERCP to dilate the ampullary stenosis was not successful as it could not be cannulated. He will have further workup towards the same from Dr. Morgan' office in 2 to 3 weeks. A coronary angiogram done showed [id number] coronary artery disease, which I have described above for medical management. No stenting or angioplasty was done. He has remained hemodynamically stable. His medications were optimized for the current ejection fraction. He ambulates wearing prostheses on both legs. He needs to follow up with Dr. Morgan in [address] Sharma as advised. He also needs to follow up with his primary care physician in 1 week. Please see a [id number] documentation for the day of discharge on [facility]. Job ID: [id number] [facility]
== END 2019-02-28 14:20 | disposition home or self-care (01) | DRG 280 ==
LOC: ERS 10:07 → 2NO 14:11
PROVIDERS: ADMIT Internal Medicine; ATTEND Internal Medicine
PROC: 0FJB8ZZ Inspection of Hepatobiliary Duct, Via Natural or Artificial Opening Endoscopic (ICD-10-PCS; 2019-02-26)
PROC: BF10YZZ Fluoroscopy of Bile Ducts using Other Contrast (ICD-10-PCS; 2019-02-26)
PROC: 4A023N8 Measurement of Cardiac Sampling and Pressure, Bilateral, Percutaneous Approach (ICD-10-PCS; principal; 2019-02-27)
PROC: B2151ZZ Fluoroscopy of Left Heart using Low Osmolar Contrast (ICD-10-PCS; 2019-02-27)
PROC: B2111ZZ Fluoroscopy of Multiple Coronary Arteries using Low Osmolar Contrast (ICD-10-PCS; 2019-02-27)
DX: I21.4 Non-ST elevation (NSTEMI) myocardial infarction (principal); N18.6 End stage renal disease; I50.41 Acute combined systolic (congestive) and diastolic (congestive) heart failure; K83.1 Obstruction of bile duct; E87.1 Hypo-osmolality and hyponatremia; I13.2 Hypertensive heart and chronic kidney disease with heart failure and with stage 5 chronic kidney disease, or end stage renal disease; C90.01 Multiple myeloma in remission; E78.00 Pure hypercholesterolemia, unspecified; I25.10 Atherosclerotic heart disease of native coronary artery without angina pectoris; I48.2 Chronic atrial fibrillation; R16.1 Splenomegaly, not elsewhere classified; D63.1 Anemia in chronic kidney disease; I73.9 Peripheral vascular disease, unspecified; F41.9 Anxiety disorder, unspecified; I08.1 Rheumatic disorders of both mitral and tricuspid valves; I48.0 Paroxysmal atrial fibrillation; Z89.512 Acquired absence of left leg below knee; Z89.511 Acquired absence of right leg below knee; Z88.1 Allergy status to other antibiotic agents; Z88.0 Allergy status to penicillin; Z99.2 Dependence on renal dialysis; Z87.891 Personal history of nicotine dependence; Z79.899 Other long term (current) drug therapy; Z79.82 Long term (current) use of aspirin; Z97.16 Presence of artificial legs, bilateral (complete) (partial); D63.0 Anemia in neoplastic disease
CPT/HCPCS: 36415; 36430; 71045; 74181; 74330; 76700; 80053; 80061; 82553; 83690; 83880; 84484; 85025; 85046; 85610; 85730; 86850; 86900; 86901; 86922; 90935; 93005; 93306; 93458; 93798; 94760; 99152; C1769; G0257; J1644; J1956; J2001; J2250; J2704; J2720; J3010; P9016; Q9967

== ENCOUNTER 2019-03-24 08:59 | Day surgery (SDC) | payer MEDICARE, BC ==
[2019-03-23 16:04] VITALS: BMI 17.5
[2019-03-24] MEDS ORDERED: Fentanyl 100 MCG/2 ML VIAL ONE (09:53)
[2019-03-24] MEDS ORDERED: Midazolam HCl 2 mg/2 ml Vial ONE (09:53)
--- NOTE | 2019-03-24 11:49 | CT ---
CT Deep Bone Perc Biopsy CT GUIDED BONE BIOPSY: CLINICAL HISTORY: History of anemia, myeloma. PROCEDURE: Informed consent was obtained and the patient was escorted to the procedural suite, placed in prone p osition. Conscious sedation for a total of 45 minutes was performed, administered by the radiology nurse, with the patient consistently monitored throughout the duration of the exam in stable conditio n. The patient's skin was prepped and draped in a standard sterile fashion and topical anesthesia with buffered 1% lidocaine was performed. After a small skin incision was made, a trocar from [employer] bone biopsy kit was advanced to the leading edge of the posterior right ilium. After adequate placement was confirmed with CT fluoroscopic imaging, 2 separate bone marrow aspirates, followed by a core biopsy, were obtained via percutaneous biopsy. These were confirmed with CT fluoroscopic imaging and the specimens were submitted to the benefits technician for adequacy. Specimens were de emed adequate for interpretation. Therefore, all devices were then removed from the patient. No unexpected procedural complications were present. The patient was monitored in radiology holding i n stable condition prior to discharge with family member. IMPRESSION: Technically successful percutaneous bone biopsy. Pathology results are pending.
== END 2019-03-24 12:00 | disposition home or self-care (01) ==
LOC: RAD 08:59
PROVIDERS: ATTEND Internal Medicine Hematology & Oncology
PROC: 0QB23ZX Excision of Right Pelvic Bone, Percutaneous Approach, Diagnostic (ICD-10-PCS; principal; 2019-03-24)
DX: C90.00 Multiple myeloma not having achieved remission (principal); I12.9 Hypertensive chronic kidney disease with stage 1 through stage 4 chronic kidney disease, or unspecified chronic kidney disease; N18.4 Chronic kidney disease, stage 4 (severe); F41.9 Anxiety disorder, unspecified; Z87.891 Personal history of nicotine dependence; Z88.0 Allergy status to penicillin; Z88.1 Allergy status to other antibiotic agents; Z99.2 Dependence on renal dialysis
CPT/HCPCS: 20225; 77002; 85097; 88184; 88237; 88264; 88280; 88305; 88311; 88313; 88342; 88365; J2250; J3010

== ENCOUNTER 2019-04-02 09:57 | Day surgery (SDC) | payer MEDICARE, BC ==
[2019-04-02] MEDS ORDERED: Sodium Chloride 0.9% 20 ML ONE (10:08)
[2019-04-02] MEDS: diphenhydrAMINE 25 MG CAP PO SCH (11:08)
[2019-04-02] MEDS: Acetaminophen 500 MG TAB PO SCH (11:08)
[2019-04-02 13:54] VITALS: BP 151/82; TEMP 98
[2019-04-02 13:57] LABS: Hemoglobin 8.6 g/dL (14.0-18.0)
== END 2019-04-02 15:25 | disposition home or self-care (01) ==
LOC: ONC/OP 09:57
PROVIDERS: ATTEND Nurse Practitioner Acute Care
PROC: 30233N1 Transfusion of Nonautologous Red Blood Cells into Peripheral Vein, Percutaneous Approach (ICD-10-PCS; principal; 2019-04-02)
DX: D64.9 Anemia, unspecified (principal); D69.6 Thrombocytopenia, unspecified; Z88.0 Allergy status to penicillin; Z88.1 Allergy status to other antibiotic agents
CPT/HCPCS: 36430; 85014; 85018; 86850; 86900; 86901; 86922; P9016; Q0163

== ENCOUNTER 2019-04-04 16:26 | Emergency (ER) | payer MEDICARE, BC ==
[2019-04-04] MEDS ORDERED: Oxymetazoline HCl 0.05% (30 ML BOT) NS SCH (17:00)
[2019-04-04 17:25] LABS: Hemoglobin 8.7 g/dL (14.0-18.0); Mean Corpuscular HGB CONC 30.9 g/dL (32.0-36.0); Mean Corpuscular Hemoglobin 29.4 pg (27.0-31.0); Mean Platelet Volume 10.5 fL (7.4-10.4); Platelet Count 149 thou/uL (130-400); RBC Distribution Width 18.2 % (11.5-14.5); Red Blood Cell (RBC) Count 2.95 mill/uL (4.70-6.10); White Blood Cell (WBC) Count 7.4 thou/uL (4.8-10.8)
[2019-04-04 17:31] LABS: INR-International Normal Ratio 1.2; Prothrombin Time 14.7 SEC (12.0-14.7)
[2019-04-04 17:59] LABS: Anisocytosis SLIGHT = 6-15 cells (100X) (0-5/hpf); Lymphocytes 3 % (21-51); MDiff Complete? YES; Monocytes 12 % (0-10); Neutrophil 85 % (42-75); Platelet Morphology Comment Appears Adequate
== END 2019-04-04 19:00 | disposition home or self-care (01) ==
LOC: ERS 16:26
DX: R04.0 Epistaxis (principal); E78.5 Hyperlipidemia, unspecified; E78.00 Pure hypercholesterolemia, unspecified; I10 Essential (primary) hypertension; D64.9 Anemia, unspecified; I25.2 Old myocardial infarction; Z87.891 Personal history of nicotine dependence; Z79.899 Other long term (current) drug therapy; Z79.82 Long term (current) use of aspirin
CPT/HCPCS: 36415; 85025; 85610; 85730; 99283

== ENCOUNTER 2019-06-13 09:46 | Day surgery (SDC) | payer MEDICARE, BC ==
[2019-06-13] MEDS ORDERED: diphenhydrAMINE 25 MG CAP PO SCH (10:15)
[2019-06-13] MEDS ORDERED: Acetaminophen 500 MG TAB PO SCH (10:15)
[2019-06-13 19:26] VITALS: BP 139/80; TEMP 97.7
[2019-06-13 19:45] LABS: Hemoglobin 9.8 g/dL (14.0-18.0); Mean Corpuscular HGB CONC 32.7 g/dL (32.0-36.0); Mean Corpuscular Hemoglobin 30.4 pg (27.0-31.0); Mean Corpuscular Volume 92.8 fL (78.0-98.0); Mean Platelet Volume 12.1 fL (7.4-10.4); Platelet Count 105 thou/uL (130-400); RBC Distribution Width 15.6 % (11.5-14.5); Red Blood Cell (RBC) Count 3.23 mill/uL (4.70-6.10); White Blood Cell (WBC) Count 7.1 thou/uL (4.8-10.8)
[2019-06-13 19:55] LABS: Eosinophils 6 % (0-10); Lymphocytes 21 % (21-51); MDiff Complete? YES; Monocytes 6 % (0-10); Neutrophil 66 % (42-75); Platelet Morphology Comment Appears Decreased
== END 2019-06-13 19:42 | disposition home or self-care (01) ==
LOC: ONC/OP 09:46 → SDC 09:46 → ONC 09:46 → ONC/OP 19:42
PROVIDERS: ATTEND Family Medicine Sports Medicine
PROC: 30233N1 Transfusion of Nonautologous Red Blood Cells into Peripheral Vein, Percutaneous Approach (ICD-10-PCS; principal; 2019-06-13)
DX: D64.9 Anemia, unspecified (principal); D69.6 Thrombocytopenia, unspecified; Z88.0 Allergy status to penicillin; Z88.1 Allergy status to other antibiotic agents
CPT/HCPCS: 36415; 36430; 85025; 86850; 86900; 86901; 86922; P9016; Q0163

== ENCOUNTER 2019-06-19 09:42 | Inpatient (IN) | payer MEDICARE, BC ==
[~2019-06-19 09:42] MED LIST changes: -Acetaminophen 500 MG TAB PO SCH; +Heparin 10,000 UNITS/ 10 ML VIAL ONE; -diphenhydrAMINE 25 MG CAP PO SCH
[2019-06-19 10:49] LABS: #Eosinphils 0.6 thou/uL (0.0-0.7); #Lymphocytes 1.5 thou/uL (1.20-3.40); #Neutrophils 3.9 thou/uL (1.40-6.50); %Basophils 0.6 % (0.0-1.0); %Eosinophils 8.2 % (0.0-10.0); %Monocytes 14.1 % (0.0-10.0); %Neutrophils 56.1 % (42.0-75.0); Hemoglobin 7.7 g/dL (14.0-18.0); Mean Corpuscular HGB CONC 31.5 g/dL (32.0-36.0); Mean Corpuscular Hemoglobin 29.5 pg (27.0-31.0); Mean Corpuscular Volume 93.9 fL (78.0-98.0); Mean Platelet Volume 12.3 fL (7.4-10.4); Platelet Count 85 thou/uL (130-400); RBC Distribution Width 15.7 % (11.5-14.5); Red Blood Cell (RBC) Count 2.59 mill/uL (4.70-6.10)
[2019-06-19 11:04] LABS: ALT (SGPT) 26 U/L (8-55); AST (SGOT) 56 U/L (5-34); Albumin 2.8 g/dL (3.4-4.8); Alkaline Phosphatase 379 U/L (40-110); Anion Gap 20 mmol/L (10-20); BUN (Urea Nitrogen) 67 mg/dL (8.4-25.7); Bilirubin, Total 0.8 mg/dL (0.2-1.2); Calc. Creatinine Clearance 0 mL/min (70-130); Calcium 8.4 mg/dL (7.8-10.44); Carbon Dioxide 19 mmol/L (23-31); Chloride 106 mmol/L (98-107); Estimated GFR-MDRD 11; Globulin 3.6 g/dL (2.4-3.5); Glucose 72 mg/dL (83-110); Potassium 5.5 mmol/L (3.5-5.1); Protein, Total 6.4 g/dL (5.8-8.1); Sodium 139 mmol/L (136-145)
[2019-06-19 11:05] LABS: Anisocytosis SLIGHT = 6-15 cells (100X) (0-5/hpf); MDiff Complete? YES; Platelet Morphology Comment Appears Decreased; Polychromasia SLIGHT = 2-3 cells (100X) (0-2/hpf); Schistocytes SLIGHT = 2-5 cells (100X) (0-1/hpf); Target Cells SLIGHT = 2-5 cells (100X) (0-1/hpf)
[2019-06-19 11:05] LABS: INR-International Normal Ratio 1.3; PTT 31.3 SEC (22.9-36.1); Prothrombin Time 16.1 SEC (12.0-14.7)
[2019-06-19 13:31] VITALS: BMI 17.9
[2019-06-19 13:36] LABS: Iron 46 ug/dL (65-175); Iron Binding Capacity, Total 193 mcg/dL (261-462)
[2019-06-19] MEDS ORDERED: Prevnar 13-Val Conj/PF 0.5 ML SYRINGE IM ONE (14:00)
[2019-06-19] MEDS ORDERED: Acetaminophen 325 MG TAB PO PRN (14:06)
--- NOTE | 2019-06-19 17:36 | HP ---
PRIMARY CARE PHYSICIAN: Dr. Thomas. CHIEF COMPLAINT: Melena, rectal bleeding. HISTORY OF PRESENT ILLNESS: Mr. Espino is a very pleasant 74-year-old male, who reported to the emergency room today for rectal bleeding reports that it started 2 days ago. Reports dark red blood fills the toilet when he has a bowel movement. Reports that he usually has a bowel movement after he eats and he noticed the blood on Saturday. The patient has end-stage renal and has dialysis on Saturday, Saturday, Saturday. He was supposed to go today, but the rectal bleeding caused him concern and he came to the emergency room instead. Dr. Velez is his mri supervisor. PAST MEDICAL HISTORY: Pertinent for hyperlipidemia, high cholesterol, hypertension, multiple myeloma, end-stage renal, and chronic anemia. He has been seen by Dr. Morgan in the past who has recommended sending him to [place] or [place] for a double balloon enteroscopy to check about a small bowel series to see if there is an AVM or something to cauterize. The patient is not on a blood thinner, but does take an aspirin 81 mg every day. The patient's hemoglobin currently is 7.7, which is down from 06/13/2019 at 9.8. The patient received blood transfusion this past weekend. Creatinine is 6.09, potassium 5.5, BUN 67, estimated GFR is 11, platelet count is 85. The patient admitted to medical unit for further management. REVIEW OF SYSTEMS: The patient reports hematochezia. Denies constipation, diarrhea, nausea. Denies vomiting. Reports melena. Denies fever or chills. All other systems reviewed and are negative unless mentioned in the HPI. PAST MEDICAL HISTORY: As above. PAST SURGICAL HISTORY: HemoSplit for dialysis to right subclavian which was removed, bilateral lower extremity amputation, and dialysis fistula of the right upper extremity. PSYCHIATRIC HISTORY: None. SOCIAL HISTORY: Denies any alcohol or drug use. He is a former tobacco smoker. He lives at home with his family. ALLERGIES: GENTAMICIN, PENICILLIN, LINCOCIN. FAMILY HISTORY: Positive for hypertension. HOME MEDICATIONS: 1. Ferrous sulfate 325 mg p.o. b.i.d. 2. Ninlaro 3 mg p.o. q.7 days. 3. Revlimid 5 mg p.o. q.28 days. 4. Mircera 100 mcg q.14 days. 5. . 6. Renvela 2400 mg p.o. t.i.d. 7. Tramadol 50 mg 1 to 2 tablets p.o. q.6 hours as needed. 8. Ambien 5 mg p.o. at bedtime. 9. Aspirin 81 mg p.o. at 12 noon. 10. Lipitor 80 mg p.o. at bedtime. 11. Coreg 3.125 mg p.o. b.i.d. 12. Zetia 10 mg p.o. daily. 13. Apresoline 25 mg p.o. t.i.d. 14. Isosorbide 20 mg p.o. b.i.d.. PHYSICAL EXAMINATION: VITAL SIGNS: Blood pressure 142/87, pulse is 63, respiration rate is 14, temp is 97.9, PO2 sats are 98% on room air. CONSTITUTIONAL: The patient is alert and oriented to person, place, and time. He is nontoxic appearing. HEENT: Head is atraumatic and normocephalic. Eyes; eyelids are normal to inspection. Pupils are equally round and reactive to light. ENT; mouth exam is normal. Mucous membranes are moist. The patient is missing some teeth. NECK: Normal range of motion. No tenderness. RESPIRATORY/CHEST: Breath sounds are clear. There are no findings of any respiratory distress. CARDIOVASCULAR: Regular rate and rhythm. Heart sounds are normal. ABDOMEN: Nontender. Bowel sounds are heard. BACK: Normal range of motion. No tenderness. EXTREMITIES: Upper extremity, normal strength. Sensation is intact. Radial pulse normal. There is a right upper extremity AV fistula. Lower extremity, below-knee amputation bilaterally. Motor strength is normal. NEURO: The patient is oriented to person, place, and time. Speech is normal. SKIN: Warm, dry, normal in color. PSYCH: Has a normal affect. DIAGNOSTIC DATA: EKG in the emergency room shows normal sinus rhythm, beats per minute 64. There is no change when compared to previous EKGs. ST segments normal. [place] is normal. PLAN AND ASSESSMENT: 1. Acute on chronic anemia. The patient has recent history of 2 days of melena, dark red blood with every bowel movement since Saturday, drop in hemoglobin from 9.8 to 7.7. We will do serial H and H. Protonix q.12 hours. Ask GI to consult. Keep patient on a clear liquid diet. Hold the aspirin. 2. End-stage renal disease, requiring dialysis. Dr. Velez has been consulted from the emergency room and will arrange dialysis for patient today. 3. Hypertension. We will restart home medications. We will trend. 4. Dyslipidemia. We will restart home medications. 5. GI prophylaxis started. 6. Hospital course dependent on clinical findings. Job ID: [id number]
[2019-06-19 20:53] LABS: Hemoglobin 7.2 g/dL (14.0-18.0)
[2019-06-19] MEDS: Pantoprazole 40 MG VIAL IVP SCH (21:45)
--- NOTE | 2019-06-20 01:21 | CON ---
DATE OF CONSULTATION: 06/19/2019 REASON FOR CONSULTATION: GI bleeding. HISTORY OF PRESENT ILLNESS: Min Espino is an is fragile looking 74-year-old black male who is known to me from before. The patient had been seeing Dr. Tyrese Morgan over the years. The patient has had recurrent anemia due to GI bleeding. The patient has been hospitalized several times here with melena stool. The patient was seen by me in May 2018 when he came to the ER with dark stools and also anemia. An EGD performed by me at that time revealed hiatal hernia, otherwise no other pathology seen. The patient has had multiple colonoscopies done in the past and no definite pathology was found. He also had multiple EGDs. It was felt the patient most likely has bleeding from small bowel pathology. I believe early this year Dr. Tyrese Morgan did a push enteroscopy to the jejunum and no pathology seen. The patient also tells me he had a balloon enteroscopy done in the past. No pathology was found. The patient was doing well until early this morning when he had an episode of black tarry stool. He had no abdominal pain, no nausea or vomiting. He did not feel dizzy. He has no more stools since admission. He has had dilation done this afternoon. At the present time, he appears very comfortable. No acute distress. No nausea, no vomiting. No abdominal pain. No heartburn, no indigestion. As mentioned earlier, he has had colonoscopies, multiple EGDs, also has had a balloon enteroscopy out of town, and also has had a capsule PillCam study as outpatient. He has no relevant history. MEDICAL ILLNESSES: 1. Chronic kidney disease, on hemodialysis. 2. Multiple myeloma. 3. Anemia. 4. Hyperlipidemia. 5. Hypertension. 6. Recurrent anemia. PAST SURGICAL HISTORY: He has had bilateral BKA and AV fistula for dialysis. SOCIAL HISTORY: The patient does not smoke at the present time. He is a former smoker. No alcohol intake. No drug abuse. ALLERGIES: GENTAMICIN, PENICILLIN, LINCOMYCIN. FAMILY HISTORY: Hypertension. MEDICATIONS: List reviewed which includes ferrous sulfate, Mircera, Renvela, tramadol, Ambien, aspirin, Lipitor, Coreg, Zetia, Apresoline, losartan, and also Revlimid. REVIEW OF SYSTEMS: CORPORATE COMPLIANCE DIRECTOR: No history of chronic headache, dizziness, or syncope, TIA, or seizure disorder. RESPIRATORY: No chronic cough, hemoptysis, or dyspnea. CARDIOVASCULAR: No chest pain. No palpitation. No dyspnea, orthopnea, or PND. GI: No abdominal pain. No nausea or vomiting. No dysphagia. MUSCULOSKELETAL: No back pain. No chronic arthralgias. NEUROPSYCHIATRY: No depression or anxiety. HEAD: No headache. EYES: No impaired vision or diplopia. EARS: No hearing loss. NOSE: No nosebleed. PHYSICAL EXAMINATION: GENERAL: Revealed a fragile looking male, appears very comfortable. VITAL SIGNS: His pulse is 63, blood pressure 140/70. HEENT: Conjunctivae clear. NECK: Supple. No adenitis or thyromegaly noted. CARDIOVASCULAR: First and second heart sounds heard. LUNGS: Clear to auscultation. ABDOMEN: Soft. No organomegaly. No tenderness. No masses. EXTREMITIES: BKA, both legs. CORPORATE COMPLIANCE DIRECTOR: Within normal limits. LABORATORY DATA: Hemoglobin 7.7, dropped from 9.8. He has evidence of chronic kidney disease, elevated BUN and creatinine. Lytes are normal. BUN is 67, creatinine is 6.09, potassium 5.5. CLINICAL IMPRESSION: A 74-year-old male with recurrent GI bleeding over the years. The patient has previous had negative colonoscopy and negative EGDs. He also had negative double balloon enteroscopy out of town. The patient presents with melena. He has no abdominal pain, no nausea or vomiting. Recurrent GI bleeding, possibly from small bowel pathology. Possibly could have some vascular ectasia in stomach or the colon. RECOMMENDATION: EGD tomorrow. I did talk to Mr. Espino given the option of having EGD or just wait and watch and follow up H and H. He is agreeable to have EGD. I will plan for EGD tomorrow and make further recommendation. Job ID: [id number]
[2019-06-20 06:18] LABS: ALT (SGPT) 22 U/L (8-55); AST (SGOT) 48 U/L (5-34); Albumin 2.7 g/dL (3.4-4.8); Alkaline Phosphatase 346 U/L (40-110); Anion Gap 12 mmol/L (10-20); BUN (Urea Nitrogen) 32 mg/dL (8.4-25.7); Bilirubin, Total 0.9 mg/dL (0.2-1.2); Calc. Creatinine Clearance 13 mL/min (70-130); Calcium 8.6 mg/dL (7.8-10.44); Carbon Dioxide 28 mmol/L (23-31); Chloride 105 mmol/L (98-107); Estimated GFR-MDRD 20; Globulin 3.2 g/dL (2.4-3.5); Glucose 61 mg/dL (83-110); Potassium 4.5 mmol/L (3.5-5.1); Protein, Total 5.9 g/dL (5.8-8.1); Sodium 140 mmol/L (136-145)
[2019-06-20 06:31] LABS: Eosinophils 5 % (0-10); Hemoglobin 6.7 g/dL (14.0-18.0); Hypochromia SLIGHT = 6-15 cells (100X) (0-5/hpf); Lymphocytes 10 % (21-51); MDiff Complete? YES; Mean Corpuscular HGB CONC 32.5 g/dL (32.0-36.0); Mean Corpuscular Hemoglobin 30.7 pg (27.0-31.0); Mean Corpuscular Volume 94.5 fL (78.0-98.0); Mean Platelet Volume 11.4 fL (7.4-10.4); Monocytes 12 % (0-10); Neutrophil 73 % (42-75); Platelet Count 90 thou/uL (130-400); Platelet Morphology Comment Appears Adequate; RBC Distribution Width 15.7 % (11.5-14.5); Red Blood Cell (RBC) Count 2.19 mill/uL (4.70-6.10); White Blood Cell (WBC) Count 6.2 thou/uL (4.8-10.8)
[2019-06-20] MEDS: Dextrose 50% Abboject 50 ML SYRINGE SLOW IVP SCH (08:27)
[2019-06-20 08:33] LABS: Glucose Accucheck Confirmation 55 mg/dl (83-110)
[2019-06-20] MEDS ORDERED: Dextrose 5 % And 0.9 % NaCl 1,000 ML IV SCH (09:00)
[2019-06-20] MEDS ORDERED: Ketamine 50 MG/ML (10ML VIAL) ONE (11:35)
[2019-06-20] MEDS ORDERED: Phenylephrine HCL 10 MG/ML VIAL ONE (12:34)
[2019-06-20] MEDS ORDERED: Ondansetron HCl/PF 4 MG/2 ML Vial IVP PRN (12:59)
[2019-06-20] MEDS ORDERED: Promethazine HCl 25 MG/ML VIAL IM PRN (12:59)
[2019-06-20] MEDS ORDERED: Promethazine HCl 25 MG/ML VIAL SLOW IVP PRN (12:59)
[2019-06-20] MEDS ORDERED: PROPOFOL 200 MG/20 ML VIAL ONE (15:08)
[2019-06-20] MEDS: Pantoprazole 40 MG VIAL IVP SCH ×2 (17:10→20:24)
[2019-06-20 18:31] LABS: Hemoglobin 8.5 g/dL (14.0-18.0); Mean Corpuscular HGB CONC 33.5 g/dL (32.0-36.0); Mean Corpuscular Hemoglobin 31.6 pg (27.0-31.0); Mean Corpuscular Volume 94.4 fL (78.0-98.0); Mean Platelet Volume 11.4 fL (7.4-10.4); Platelet Count 89 thou/uL (130-400); RBC Distribution Width 14.7 % (11.5-14.5); Red Blood Cell (RBC) Count 2.68 mill/uL (4.70-6.10); White Blood Cell (WBC) Count 6.6 thou/uL (4.8-10.8)
--- NOTE | 2019-06-20 20:03 | NM ---
NUCLEAR MEDICINE BLEEDING SCAN: 06/20/19 HISTORY: GI bleed evaluation. COMPARISON: None. TECHNIQUE: Patient was administered 29.30 millicuries of technetium 99m tagged red blood cells. Imaging was perf ormed for 15 minutes. Patient refused to continue. FINDINGS: There is evidence of expected blood flow distribution/vascular distribution. No evidence of a gastroi ntestinal bleed on the 15 minute study. IMPRESSION: Incomplete evaluation. Only 15 minutes of imaging were performed. No evidence of a bleed on the image s provided. POS: NAZARIO
--- NOTE | 2019-06-20 22:21 | PDOC.HOSPP ---
- Subjective Encounter Date: 06/20/19 Encounter Time: 13:00 Subjective: Patient was sleeping after endoscopy. Denied discomfort, was out of it from anasthesia. Still had one more unit of blood to finish transfusing. Got bleeding scan in evening, but apparently refused to finish it. - Objective Vital Signs & Weight: Vital Signs (12 hours) Temp Pulse Pulse Resp BP BP Pulse Ox 06/20/19 20:03 97.4 F L 68 12 148/77 H 98 06/20/19 18:21 98.5 F 70 16 145/80 H 97 06/20/19 18:17 98.5 F 70 16 145/80 H 97 06/20/19 15:35 94.7 F L 74 18 151/75 H 96 06/20/19 15:10 96.6 F L 72 18 152/71 H 97 06/20/19 14:30 97.6 F 67 16 149/75 H 100 06/20/19 11:25 98.3 F 65 16 130/71 95 06/20/19 11:05 97.7 F 65 16 129/81 Weight Admit Weight 108 lb Weight 108 lb I&O: 06/19/19 06/20/19 06/21/19 06:59 06:59 06:59 Intake Total 1999 Balance 2000 Result Diagrams: 06/20/19 18:22 06/20/19 05:24 Additional Labs: Accuchecks 06/20/19 06/20/19 06/20/19 20:21 16:47 14:21 POC Glucose 115 H 100 86 06/20/19 10:18 POC Glucose 106 Hospitalist ROS - Review of Systems Constitutional: denies: fever, chills - Medication Medications: Active Medications Generic Name Dose Route Start Last Admin Trade Name Freq PRN Reason Stop Dose Admin Pantoprazole Sodium 40 mg 06/19/19 21:00 06/20/19 20:24 Protonix IVP 40 mg Q12HR VON Administration Sodium Chloride 10 ml 06/19/19 14:06 06/20/19 20:24 Flush - Normal Saline IVF 10 ml PRN PRN Administration Saline Flush - Exam General Appearance: NAD General - other findings: sleepy Eye: PERRL, anicteric sclera ENT: normocephalic atraumatic, no oropharyngeal lesions Neck: supple, symmetric, no JVD Heart: RRR, no murmur, no gallops, no rubs Respiratory: CTAB, no wheezes, no rales, no ronchi Gastrointestinal: soft, non-tender, non-distended, normal bowel sounds Extremities: no cyanosis, no clubbing, no edema Hosp A/P - Plan Consults: other Tagged RBC scan: incomplete evaluation. No evidence of Gi bleed. EGD: normal This is 74 year old male who presented with bright red rectal bleeding Acute GI bleed Acute blood loss anemia - EGD normal, tagged RBC scan inconclusive but shows no evidence of bleeding - likely has some AV malformation but difficult to detect. Had balloon enteroscopy done in [place] recently and couldn't find anything - will trend CBC, if stable likely d/c tomorrow per GI ESRD - continue dialysis M, W, F Multiple Myeloma - on revlimid as outpatient HL - atorvastatin Dispo: monitor overnight, possibly d/c am Code status: full code
[2019-06-21 04:59] LABS: Hemoglobin 7.3 g/dL (14.0-18.0); Mean Corpuscular HGB CONC 31.5 g/dL (32.0-36.0); Mean Corpuscular Hemoglobin 29.5 pg (27.0-31.0); Mean Corpuscular Volume 93.9 fL (78.0-98.0); Mean Platelet Volume 11.2 fL (7.4-10.4); Platelet Count 84 thou/uL (130-400); Red Blood Cell (RBC) Count 2.47 mill/uL (4.70-6.10); White Blood Cell (WBC) Count 7.3 thou/uL (4.8-10.8)
[2019-06-21] MEDS: Pantoprazole 40 MG VIAL IVP SCH ×2 (09:43→21:04)
[2019-06-21] MEDS ORDERED: GoLYTELY 4,000 ml Bottle PO SCH (12:15)
--- NOTE | 2019-06-21 12:40 | PRG ---
DATE OF SERVICE: 06/21/2019 SUBJECTIVE: This is a 74-year-old male with chronic disease, recurrent GI bleeding over the years. The patient has negative endoscopic studies in the past. He came to the hospital on Saturday with black tarry stool and anemia. An EGD was done yesterday morning. The EGD showed no pathology. After discussing with the patient, it was elected to do a tagged RBC scan. He went to RBC scan yesterday, and scanning was only for 15 minutes. He refused to stay in the room any longer. The patient was brought back to the floor last night. The 15-minute scanning showed no active bleeding. He continued to bleed through the night. No abdominal pain. No nausea or vomiting. He was taken back to scanning room again, and the scanning was done this morning. The patient has had radiotracer in the ascending colon and transverse colon coming into the descending colon. Appears bleeding mostly from the ascending colon area. OBJECTIVE: VITAL SIGNS: Afebrile, pulse is 79, blood pressure 150/71. CARDIOVASCULAR: Within normal limits. LUNGS: Within normal limits. ABDOMEN: Soft. No organomegaly. No tenderness. No masses. LABORATORY DATA: From today, the blood counts were dropped down to 7.3 from 8.5 yesterday. Hematocrit 23.2. CLINICAL IMPRESSION: Recurrent bleeding. Now, he has positive radionuclide scan showing blood in the ascending colon and transverse colon. PLAN: 1. Prep the patient for colonoscopy today. 2. Transfuse as needed. Job ID: [id number]
--- NOTE | 2019-06-21 13:28 | NM ---
17 HOUR DELAYED IMAGES OF A RADIONUCLIDE GI BLEEDING SCAN: HISTORY: GI bleed FINDINGS/IMPRESSION: There is tracer in the colon involving the ascending, transverse, and proximal descending colon, cons istent with recent GI bleed. POS: OFF
[2019-06-21] MEDS ORDERED: Ondansetron PF 4 MG/2 ML Vial IVP PRN (14:06)
--- NOTE | 2019-06-21 18:01 | PDOC.HOSPP ---
- Subjective Encounter Date: 06/21/19 Encounter Time: 13:00 Subjective: Patient had five to six episodes of rectal bleeding today. Denies abdominal pain. When I saw him he had bleeding scan which was positive and was drinking prep, but wasn't sure if he would be able to finish the prep. - Objective Vital Signs & Weight: Vital Signs (12 hours) Temp Pulse Resp BP Pulse Ox 06/21/19 08:16 97.5 F L 79 16 151/71 H 97 06/21/19 08:00 97 Weight Admit Weight 108 lb Weight 108 lb I&O: 06/20/19 06/21/19 06/22/19 06:59 06:59 06:59 Intake Total 1999 Balance 1999 Result Diagrams: 06/21/19 04:37 06/20/19 05:24 Additional Labs: Accuchecks 06/21/19 06/20/19 05:49 20:21 POC Glucose 73 115 H Hospitalist ROS - Review of Systems Constitutional: denies: chills ENT: denies: ear discharge Cardiovascular: denies: chest pain - Medication Medications: Active Medications Generic Name Dose Route Start Last Admin Trade Name Freq PRN Reason Stop Dose Admin Pantoprazole Sodium 40 mg 06/19/19 21:00 06/21/19 09:43 Protonix IVP 40 mg Q12HR VON Administration Polyethylene Glycol/Electrolytes 4,000 ml 06/21/19 12:15 06/21/19 12:30 Golytely PO 06/21/19 18:00 4,000 ml ONE VON Administration Sodium Chloride 10 ml 06/19/19 14:06 06/21/19 09:43 Flush - Normal Saline IVF 10 ml PRN PRN Administration Saline Flush - Exam General Appearance: NAD, awake alert Eye: PERRL, anicteric sclera ENT: normocephalic atraumatic, no oropharyngeal lesions Neck: supple, symmetric, no JVD Heart: RRR, no murmur, no gallops, no rubs Respiratory: CTAB, no wheezes, no rales, no ronchi Gastrointestinal: soft, non-tender, non-distended, normal bowel sounds, no palpable masses Extremities: no cyanosis, no clubbing, no edema Skin: normal turgor, no lesions, no rashes Hosp A/P - Plan Tagged RBC scan: incomplete evaluation. No evidence of Gi bleed. EGD: normal Tagged RBC scan: tracer in colon in ascending, transverse and descending colon This is 74 year old male who presented with bright red rectal bleeding Acute GI bleed - possibly from AV malformation Acute blood loss anemia - EGD normal, tagged RBC scan inconclusive yesterday but repeat shows active bleeding in ascending, transverse and descending colon. Plan for colonoscopy today if patient tolerates prep - repeat CBC today, transfuse if Hb< 7 ESRD - continue dialysis M, W, F Multiple Myeloma - on revlimid as outpatient HL - atorvastatin Dispo: pending colonoscopy and stabilization of bleed Code status: full code
[2019-06-21 18:30] LABS: Hemoglobin 6.6 g/dL (14.0-18.0); Mean Corpuscular HGB CONC 33.1 g/dL (32.0-36.0); Mean Corpuscular Hemoglobin 30.9 pg (27.0-31.0); Mean Corpuscular Volume 93.4 fL (78.0-98.0); Mean Platelet Volume 10.9 fL (7.4-10.4); Platelet Count 82 thou/uL (130-400); Red Blood Cell (RBC) Count 2.15 mill/uL (4.70-6.10); White Blood Cell (WBC) Count 7.6 thou/uL (4.8-10.8)
--- NOTE | 2019-06-21 19:18 | PRG ---
DATE OF SERVICE: 06/21/2019 SUBJECTIVE: This is a 74-year-old male with chronic kidney disease with recurrent GI bleeding over the years. The patient had EGD done yesterday, which revealed no pathology. He was sent for a GI bleeding scan last night, but . The patient's initial scan did not show any bleeding site. He had a delayed scanning this morning, which showed bleeding to be around the right colon, possibly transverse colon. He is being prepped for a colonoscopy, but he is not doing the prep. The prep was he has not had any stool and he had only drank less than 1/3 of the bottle. Blood count has dropped down to 6.6 from 8.5 yesterday. He is still passing some blood. He did not have any abdominal pain, nausea, or vomiting. OBJECTIVE: VITAL SIGNS: Afebrile. Pulse is 79, blood pressure 115/78. CARDIOVASCULAR SYSTEM AND LUNGS: Within normal limits. ABDOMEN: Soft. No organomegaly. No tenderness. No masses. CLINICAL IMPRESSION: Recurrent gastrointestinal bleeding with positive tagged RBC scan from this morning. He is being prepped for colonoscopy and hopefully this can be done tomorrow morning. He still has a long way to go and he is going very slowly. In the meantime, we will transfuse him with some packed RBCs, 1 unit today. Job ID: [id number]
[2019-06-21] MEDS: Dextrose 50% Abboject 50 ML SYRINGE SLOW IVP SCH (20:48)
[2019-06-22 04:35] LABS: Hemoglobin 7.9 g/dL (14.0-18.0); Mean Corpuscular HGB CONC 31.9 g/dL (32.0-36.0); Mean Corpuscular Hemoglobin 30.2 pg (27.0-31.0); Mean Corpuscular Volume 94.5 fL (78.0-98.0); Platelet Count 84 thou/uL (130-400); RBC Distribution Width 14.3 % (11.5-14.5); Red Blood Cell (RBC) Count 2.63 mill/uL (4.70-6.10); White Blood Cell (WBC) Count 7.2 thou/uL (4.8-10.8)
[2019-06-22] MEDS: Dextrose 5% in Water 1,000 ML IV SCH (05:35)
[2019-06-22] MEDS ORDERED: Dextrose 50% Abboject 50 ML SYRINGE ONE (07:03)
[2019-06-22] MEDS ORDERED: Ketamine 50 MG/ML (10ML VIAL) ONE (07:15)
--- NOTE | 2019-06-22 11:54 | OP ---
DATE OF PROCEDURE: 06/22/2019 PROCEDURES PERFORMED: Colonoscopy with control of hemorrhage. PREOPERATIVE DIAGNOSES: Gastrointestinal bleed and anemia of acute blood loss. Upper endoscopy was negative. Delayed views on bleeding scan showed accumulation in the right colon. DESCRIPTION OF PROCEDURE: Informed consent was obtained from the patient. He was sedated with total intravenous anesthesia. The rectal exam was performed and was normal. There was red blood and clot throughout the colon indicating fresh distal bleeding. The colonoscope was advanced to the terminal ileum without difficulty. The mucosa of the terminal ileum was normal. There was no blood in the terminal ileum. There was only a small amount of blood staining around the cecum. There was a 1 cm diverticulum in the cecum, which was impacted with stool. The site was probed with the biopsy forceps to better visualize the edges of the diverticulum. No bleeding source was seen around that. The scope was withdrawn and there was fresh reaccumulation of blood identified in the proximal transverse colon just distal to the hepatic flexure. Retroflexed views in this area showed an actively bleeding AVM or Dieulafoy's lesion on the proximal side of a fold in this area. This was a site of active continuous bleeding, but there was no obvious mucosal defect associated with it. The site was cauterized with argon plasma coagulation with good hemostasis achieved. A tattoo was placed lateral to and just proximal to the bleeding site. There was blood staining throughout the rest of the colon, however, no other bleeding source or significant lesion was identified. Retroflexed views in the rectum were unremarkable. IMPRESSION: 1. 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 This was cauterized with argon plasma coagulation with good hemostasis confirmed. A tattoo was placed next to the lesion. 2. 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 3. Otherwise normal colonoscopy to the terminal ileum with suboptimal colon preparation with blood staining throughout the colon. RECOMMENDATIONS: 1. Advance diet. 2. Follow trend of the hemoglobin. Job ID: [id number]
[2019-06-22] MEDS: Pantoprazole 40 MG VIAL IVP SCH ×2 (16:00→21:37)
[2019-06-22] MEDS ORDERED: PROPOFOL 200 MG/20 ML VIAL ONE (16:18)
[2019-06-22] MEDS ORDERED: Lidocaine 1% PF 5 ML VIAL ONE (16:18)
--- NOTE | 2019-06-22 21:16 | PDOC.HOSPP ---
- Subjective Encounter Date: 06/22/19 Encounter Time: 20:00 Subjective: Patient had cauterization due to visible vessel bleeding on colonoscopy. He feels much better now and went to the bathroom and did not have a bloody bowel movement. He denies abdominal pain, nausea or vomiting. Per GI, monitor overnight - Objective Vital Signs & Weight: Vital Signs (12 hours) Temp Pulse Resp BP BP Pulse Ox 06/22/19 19:59 98.3 F 75 16 142/72 H 95 06/22/19 17:25 98.3 F 76 18 136/68 100 06/22/19 11:40 98.9 F 63 16 142/60 H 96 Weight Admit Weight 108 lb Weight 108 lb I&O: 06/21/19 06/22/19 06/23/19 06:59 06:59 06:59 Intake Total 1999 1350 Balance 1999 1350 Result Diagrams: 06/22/19 03:55 06/20/19 05:24 Additional Labs: Accuchecks 06/22/19 06/22/19 06/22/19 20:16 17:34 11:02 POC Glucose 115 H 78 72 06/22/19 06/22/19 06/22/19 10:20 06:01 05:14 POC Glucose 77 64 L 59 L* 06/21/19 21:38 POC Glucose 95 Hospitalist ROS - Review of Systems Constitutional: denies: fever, chills Eyes: denies: vision change ENT: denies: ear discharge Respiratory: denies: dry Cardiovascular: denies: chest pain, palpitations, light headedness - Medication Medications: Active Medications Generic Name Dose Route Start Last Admin Trade Name Freq PRN Reason Stop Dose Admin Dextrose/Water 1,000 mls @ 50 mls/hr 06/22/19 05:30 06/22/19 05:35 D5w IV 1,000 mls .Q20H VON Administration Pantoprazole Sodium 40 mg 06/19/19 21:00 06/22/19 16:00 Protonix IVP Not Given Q12HR VON Sodium Chloride 10 ml 06/19/19 14:06 06/21/19 09:43 Flush - Normal Saline IVF 10 ml PRN PRN Administration Saline Flush - Exam General Appearance: NAD, awake alert Eye: PERRL, anicteric sclera ENT: normocephalic atraumatic, no oropharyngeal lesions, dry oral mucosa Neck: supple, symmetric, no JVD, no thyromegaly Heart: RRR, no murmur, no gallops, no rubs, diminshed peripheral pulses Respiratory: CTAB, no wheezes, no rales, no ronchi Gastrointestinal: soft, non-tender, non-distended, no palpable masses, no hepatomegaly, no guarding, no rigidity Extremities: no cyanosis, no clubbing, no edema Skin: normal turgor, no lesions, no rashes Neurological: cranial nerve grossly intact, normal sensation to touch, no focal deficits, no new deficit Hosp A/P - Plan Tagged RBC scan: incomplete evaluation. No evidence of Gi bleed. EGD: normal Tagged RBC scan: tracer in colon in ascending, transverse and descending colon Colonoscopy: actively bleeding AV malformation versus Dieulafoy's lesion in the proximal transverse colon distal to hepatic flexure. Cauterized with argon plasma coagulation . Diverticulum This is 74 year old male who presented with bright red rectal bleeding Acute GI bleed secondary to AV malformation versus Dieulafoy lesion s/p cauterization Acute blood loss anemia - EGD normal, tagged RBC scan inconclusive yesterday but repeat shows active bleeding in ascending, transverse and descending colon. Colonoscopy showed AV malformation versus Dieulfaoy lesion actively bleeding s/p cauterization - monitor overnight, per GI may need additional 1-2 days of monitoring - CBC q12 hours ESRD - continue dialysis M, W, F Multiple Myeloma - on revlimid as outpatient HL - atorvastatin Dispo: pending colonoscopy and stabilization of bleed Code status: full code
[2019-06-22 21:49] LABS: Hemoglobin 7.3 g/dL (14.0-18.0); Mean Corpuscular HGB CONC 32.5 g/dL (32.0-36.0); Mean Corpuscular Hemoglobin 30.5 pg (27.0-31.0); Mean Corpuscular Volume 93.7 fL (78.0-98.0); Mean Platelet Volume 11.1 fL (7.4-10.4); Platelet Count 97 thou/uL (130-400); RBC Distribution Width 14.3 % (11.5-14.5); Red Blood Cell (RBC) Count 2.38 mill/uL (4.70-6.10); White Blood Cell (WBC) Count 9.4 thou/uL (4.8-10.8)
[2019-06-23] MEDS: Dextrose 5% in Water 1,000 ML IV SCH ×2 (02:21→20:39)
[2019-06-23 05:25] LABS: Anion Gap 12 mmol/L (10-20); BUN (Urea Nitrogen) 24 mg/dL (8.4-25.7); Calc. Creatinine Clearance 11 mL/min (70-130); Calcium 8.1 mg/dL (7.8-10.44); Carbon Dioxide 26 mmol/L (23-31); Chloride 107 mmol/L (98-107); Estimated GFR-MDRD 18; Glucose 127 mg/dL (83-110); Potassium 4.6 mmol/L (3.5-5.1); Sodium 140 mmol/L (136-145)
[2019-06-23 05:46] LABS: Hemoglobin 7.3 g/dL (14.0-18.0); Mean Corpuscular HGB CONC 32.3 g/dL (32.0-36.0); Mean Corpuscular Hemoglobin 30.6 pg (27.0-31.0); Mean Corpuscular Volume 94.6 fL (78.0-98.0); Mean Platelet Volume 10.9 fL (7.4-10.4); Platelet Count 97 thou/uL (130-400); RBC Distribution Width 14.6 % (11.5-14.5); Red Blood Cell (RBC) Count 2.38 mill/uL (4.70-6.10); White Blood Cell (WBC) Count 8.8 thou/uL (4.8-10.8)
[2019-06-23] MEDS: Pantoprazole 40 MG VIAL IVP SCH (11:31)
--- NOTE | 2019-06-23 19:56 | PRG ---
DATE OF SERVICE: 06/23/2019 SUBJECTIVE: Mr. Espino had endoscopy yesterday with cautery of a bleeding area of mucosa in the ascending colon. He has had no further bleeding or melena. LABORATORY DATA: Hemoglobin is 6.9 this morning, 7 yesterday, and 4.9 on 06/22. ASSESSMENT: Bleeding colon lesion, likely arteriovenous malformation, status post cautery. 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 Would continue present therapy. I think there are no signs of bleeding, he will go home tomorrow and follow up as needed. Job ID: [id number]
--- NOTE | 2019-06-23 23:22 | PDOC.HOSPP ---
- Subjective Encounter Date: 06/23/19 Encounter Time: 18:00 Subjective: The patient is doing well, no abdominal pain, no rectal bleeding, no dizziness, no lightheadedness. Earlier this afternoon was confused and didn't want to leave today Right eye noted to be red, patient denies eye pain, itchiness but states his vision is slightly hazy. He states he did have some problems with nose bleeding a few days ago - Objective Vital Signs & Weight: Vital Signs (12 hours) Temp Pulse Resp BP Pulse Ox 06/23/19 19:57 97.5 F L 78 16 157/77 H 94 L Weight Admit Weight 108 lb Weight 108 lb I&O: 06/22/19 06/23/19 06/24/19 06:59 06:59 06:59 Intake Total 1350 1443 Balance 1350 1443 Result Diagrams: 06/23/19 04:52 06/23/19 04:52 Additional Labs: Accuchecks 06/23/19 06/23/19 06/23/19 19:42 16:13 10:54 POC Glucose 98 105 104 06/23/19 06/23/19 04:53 03:13 POC Glucose 123 H 93 Hospitalist ROS - Review of Systems Constitutional: denies: fever, chills - Medication Medications: Active Medications Generic Name Dose Route Start Last Admin Trade Name Freq PRN Reason Stop Dose Admin Dextrose/Water 1,000 mls @ 50 mls/hr 06/22/19 05:30 06/23/19 20:39 D5w IV Not Given .Q20H VON Pantoprazole Sodium 40 mg 06/23/19 21:00 06/23/19 20:38 Protonix PO 40 mg BID VON Administration Sodium Chloride 10 ml 06/19/19 14:06 06/21/19 09:43 Flush - Normal Saline IVF 10 ml PRN PRN Administration Saline Flush - Exam General Appearance: NAD, awake alert Eye: PERRL, anicteric sclera Eye - other findings: Subconjunctival hemorrhage right eye . Right eye subjectively blurry ENT: normocephalic atraumatic, no oropharyngeal lesions, dry oral mucosa Neck: supple, symmetric, no JVD, no thyromegaly Heart: RRR, no murmur, no gallops, no rubs Respiratory: CTAB, no wheezes, no rales, no ronchi Gastrointestinal: soft, non-tender, non-distended Extremities: no cyanosis, no clubbing, no edema Skin: normal turgor, no lesions, no rashes Neurological: cranial nerve grossly intact, normal sensation to touch, no focal deficits, no new deficit Musculoskeletal: normal tone, normal strength, no muscle wasting Psychiatric: normal affect, normal behavior, A&O x 3, oriented to person Hosp A/P - Plan Tagged RBC scan: incomplete evaluation. No evidence of Gi bleed. EGD: normal Tagged RBC scan: tracer in colon in ascending, transverse and descending colon Colonoscopy: actively bleeding AV malformation versus Dieulafoy's lesion in the proximal transverse colon distal to hepatic flexure. Cauterized with argon plasma coagulation . Diverticulum This is 74 year old male who presented with bright red rectal bleeding, found to have AV malformation s/p cauterization Acute GI bleed secondary to AV malformation versus Dieulafoy lesion s/p cauterization Acute blood loss anemia - EGD normal, tagged RBC scan inconclusive but repeat showed active bleeding in ascending, transverse and descending colon. Colonoscopy showed AV malformation versus Dieulfaoy lesion actively bleeding s/p cauterization - CBC stable today, will check one more time tomorrow. Transfuse if Hb < 7 - f/u with Dr. Morgan as outpatient in 1-2 weeks Subconjunctival hemorrhage right eye - monitor - will order artificial tears ESRD - continue dialysis M, W, F Multiple Myeloma - on revlimid as outpatient HL - atorvastatin Dispo: pending colonoscopy and stabilization of bleed Code status: full code
[2019-06-24 04:53] LABS: Hemoglobin 6.8 g/dL (14.0-18.0); Mean Corpuscular HGB CONC 32.3 g/dL (32.0-36.0); Mean Corpuscular Hemoglobin 30.8 pg (27.0-31.0); Mean Corpuscular Volume 95.6 fL (78.0-98.0); Mean Platelet Volume 10.4 fL (7.4-10.4); Platelet Count 102 thou/uL (130-400); RBC Distribution Width 14.7 % (11.5-14.5); Red Blood Cell (RBC) Count 2.22 mill/uL (4.70-6.10); White Blood Cell (WBC) Count 9.8 thou/uL (4.8-10.8)
[2019-06-24 08:03] VITALS: BP 127/69
[2019-06-24 11:22] VITALS: TEMP 98
[2019-06-24 14:41] LABS: Mean Corpuscular HGB CONC 32.8 g/dL (32.0-36.0); Mean Corpuscular Hemoglobin 31.1 pg (27.0-31.0); Mean Corpuscular Volume 94.8 fL (78.0-98.0); Mean Platelet Volume 10.6 fL (7.4-10.4); Platelet Count 102 thou/uL (130-400); RBC Distribution Width 14.6 % (11.5-14.5); Red Blood Cell (RBC) Count 2.89 mill/uL (4.70-6.10); White Blood Cell (WBC) Count 7.9 thou/uL (4.8-10.8)
--- NOTE | 2019-06-25 17:06 | PRG ---
DATE OF SERVICE: 06/24/2019 SUBJECTIVE: Mr. Espino has had no bleeding. He received 1 unit of blood for hemoglobin of 7.7. Over the weekend, he had endoscopy with Dr. Calixto, which showed some bleeding in the right colon from flat area with no overt visual AVM or vessel, just oozing area mucosa. He states that he has been doing well and is ready go home. OBJECTIVE: VITAL SIGNS: Temperature 98.2, pulse 73, and blood pressure 123/73. ABDOMEN: Soft and nontender. NEUROLOGIC: Alert and oriented. LABORATORY DATA: White count 9 at 1424 hours on 06/24, it was 6.8 at 4 a.m. on 06/24, it had been 7.3 on 06/23. ASSESSMENT: 1. Multiple myeloma. 2. Chronic anemia with history of arteriovenous malformations, bleeding in both the stomach, small bowel and colon in the past, now colonic vascular bleed, likely an arteriovenous malformation, status post cautery with Dr. Calixto. PLAN: Continue to have a hemoglobin monitored dialysis. Follow up as needed. Job ID: [id number]
== END 2019-06-24 15:38 | disposition home or self-care (01) | DRG 377 ==
LOC: ERS 09:42 → ONC 11:51
PROVIDERS: ADMIT Internal Medicine; ATTEND Internal Medicine
PROC: 0W3P8ZZ Control Bleeding in Gastrointestinal Tract, Via Natural or Artificial Opening Endoscopic (ICD-10-PCS; principal; 2019-06-22)
DX: K55.21 Angiodysplasia of colon with hemorrhage (principal); N18.6 End stage renal disease; D62 Acute posthemorrhagic anemia; C90.00 Multiple myeloma not having achieved remission; I12.0 Hypertensive chronic kidney disease with stage 5 chronic kidney disease or end stage renal disease; N17.9 Acute kidney failure, unspecified; D63.1 Anemia in chronic kidney disease; E78.5 Hyperlipidemia, unspecified; H57.89 Other specified disorders of eye and adnexa; E78.00 Pure hypercholesterolemia, unspecified; Z88.1 Allergy status to other antibiotic agents; Z88.0 Allergy status to penicillin; Z89.512 Acquired absence of left leg below knee; Z89.511 Acquired absence of right leg below knee; K63.81 Dieulafoy lesion of intestine
CPT/HCPCS: 36415; 36416; 36430; 78278; 80048; 80053; 82565; 82728; 83540; 83550; 85025; 85027; 85610; 85730; 86850; 86900; 86901; 86922; 87324; 87449; 93005; A9604; C9113; J1644; J2370; J2704; P9016

== ENCOUNTER 2019-07-18 09:49 | Day surgery (SDC) | payer MEDICARE, BC ==
[2019-07-18] MEDS ORDERED: Acetaminophen 500 MG TAB PO SCH (10:30)
[2019-07-18] MEDS ORDERED: diphenhydrAMINE 25 MG CAP PO SCH (10:30)
[2019-07-18] MEDS ORDERED: Sodium Chloride 0.9% 10 ML ONE (10:44)
[2019-07-18 12:03] VITALS: BMI 17.9
[2019-07-18 19:19] VITALS: BP 166/84; TEMP 97.9
[2019-07-18 19:20] LABS: #Eosinphils 0.4 thou/uL (0.0-0.7); #Lymphocytes 1.4 thou/uL (1.20-3.40); #Monocytes 0.9 thou/uL (0.11-0.59); #Neutrophils 4.9 thou/uL (1.40-6.50); %Basophils 0.4 % (0.0-1.0); %Eosinophils 4.8 % (0.0-10.0); %Monocytes 11.9 % (0.0-10.0); %Neutrophils 64.9 % (42.0-75.0); Hemoglobin 10.3 g/dL (14.0-18.0); Mean Corpuscular HGB CONC 32.5 g/dL (32.0-36.0); Mean Corpuscular Hemoglobin 29.9 pg (27.0-31.0); Mean Platelet Volume 10.9 fL (7.4-10.4); Platelet Count 150 thou/uL (130-400); RBC Distribution Width 17.5 % (11.5-14.5); Red Blood Cell (RBC) Count 3.46 mill/uL (4.70-6.10); White Blood Cell (WBC) Count 7.6 thou/uL (4.8-10.8)
== END 2019-07-18 19:20 | disposition home or self-care (01) ==
LOC: SDC/OP 09:49 → 3SE 10:10 → UNDOADMIN 10:10 → 3SE 10:10 → SDC/OP 19:20
PROVIDERS: ATTEND Internal Medicine Hematology & Oncology
PROC: 30233N1 Transfusion of Nonautologous Red Blood Cells into Peripheral Vein, Percutaneous Approach (ICD-10-PCS; principal; 2019-07-18)
DX: D64.9 Anemia, unspecified (principal); D69.6 Thrombocytopenia, unspecified; Z88.0 Allergy status to penicillin; Z88.1 Allergy status to other antibiotic agents
CPT/HCPCS: 36430; 85025; 86850; 86900; 86901; 86920; 86922; P9016; 36415; Q0163

== ENCOUNTER 2020-02-20 16:30 | Emergency (ER) | payer MEDICARE, BC ==
[~2020-02-20 16:30] MED LIST changes: -Heparin 10,000 UNITS/ 10 ML VIAL ONE; +Iopamidol-370 76% 500 ML 1 ML ONE
[2020-02-20] MEDS ORDERED: Morphine 2 MG/ML SYRINGE ONE (17:17)
--- NOTE | 2020-02-20 17:29 | RAD ---
PORTABLE CHEST: 02/20/20 INDICATIONS: Dyspnea. COMPARISON: 02/23/19. Cardiomegaly. Mild vascular engorgement appears stable. No focal infiltrate. No effusion. Interstitia l prominence and parenchymal stranding appears stable. Aortic calcification again noted. IMPRESSION: Chest findings appear stable from prior exam with no acute process identified. POS: AGW
[2020-02-20 17:42] LABS: Hemoglobin 10.8 g/dL (14.0-18.0); Mean Corpuscular HGB CONC 30.7 g/dL (32.0-36.0); Mean Corpuscular Hemoglobin 29.9 pg (27.0-31.0); Mean Corpuscular Volume 97.6 fL (78.0-98.0); RBC Distribution Width 17.4 % (11.5-14.5); Red Blood Cell (RBC) Count 3.62 mill/uL (4.70-6.10); White Blood Cell (WBC) Count 7.3 thou/uL (4.8-10.8)
[2020-02-20 17:54] LABS: Anion Gap 14 mmol/L (10-20); BUN (Urea Nitrogen) 21 mg/dL (8.4-25.7); Calc. Creatinine Clearance 0 mL/min (70-130); Carbon Dioxide 28 mmol/L (23-31); Chloride 102 mmol/L (98-107); Estimated GFR-MDRD 18; Potassium 4.1 mmol/L (3.5-5.1); Sodium 140 mmol/L (136-145)
[2020-02-20 17:55] LABS: ALT (SGPT) 11 U/L (8-55); AST (SGOT) 27 U/L (5-34); Albumin 3.2 g/dL (3.4-4.8); Alkaline Phosphatase 412 U/L (40-110); Bilirubin, Total 1.6 mg/dL (0.2-1.2); Calcium 8.9 mg/dL (7.8-10.44); Globulin 4.2 g/dL (2.4-3.5); Glucose 95 mg/dL (83-110); Lipase 239 U/L (8-78); Protein, Total 7.4 g/dL (5.8-8.1)
[2020-02-20 18:02] LABS: Band 5 % (5-11); Eosinophils 9 % (0-10); Lymphocytes 10 % (21-51); MDiff Complete? YES; Mean Platelet Volume 12.5 fL (7.4-10.4); Monocytes 3 % (0-10); Neutrophil 71 % (42-75); Nucleated RBC 1 % (0); Platelet Count 114 thou/uL (130-400); Platelet Morphology Comment Appears Adequate
[2020-02-20 18:15] LABS: CKMB 2.4 ng/mL (0-6.6)
--- NOTE | 2020-02-20 19:10 | CT ---
CT OF THE ABDOMEN AND PELVIS WITH IV CONTRAST INDICATION: Abdominal pain with shortness of breath COMPARISON: MR the abdomen dated February 25, [address] the abdomen and pelvis with and without contra st dated June 14, 2017. FINDINGS: ABDOMEN: Lung bases: Mild subsegmental volume loss Liver: There are scattered hepatic cysts. There is persistent hepatomegaly Gallbladder: Not well seen. Common bile duct remains mildly prominent but stable. Pancreas: Persistent mild dilatation of the main pancreatic duct. Adrenal glands: Right adrenal adenoma is stable. Left adrenal gland is normal-appearing. Spleen: Enlarged measuring 13 cm. Kidneys and ureters: There are bilateral hyperdense and hypodense lesions involving both kidneys most suspicious for cysts. The hyperdense lesions are not well characterized on the current examination but statistically are likely reflective of small proteinaceous cyst. Vasculature: There are moderate vascular calcifications seen involving the visualized vasculature. Lymph nodes:No lymphadenopathy. Free fluid in abdomen:There is mild ascites PELVIS: Small and large bowel: There is a dilated loops of proximal small bowel within the upper midline abdo men with associated mucosal enhancement suspicious for an enteritis. No tasha pneumatosis or free air is demonstrated. Mild mucosal enhancement and intraluminal fluid is seen involving the cecum, asc ending colon and portions of the transverse colon suspicious for mild colitis. Mild amount retained stool seen within the sigmoid colon, descending colon and splenic flexure.. Appendix:Normal Bladder: Decompressed Rectal and perirectal soft tissues:Normal. Reproductive structures: Normal. Free fluid in pelvis: Mild ascites Lymphadenopathy pelvis: No lymphadenopathy is evident. Osseous structures: No acute osseous abnormality. No destructive osteolytic or osteoblastic lesion i s identified. There is scattered degenerative and osteoarthritic changes. Soft tissues:Mild anasarca IMPRESSION: 1. Dilated loops of proximal small bowel within the upper midline abdomen with associated mucosal enh ancement is suspicious for an enteritis. There is also mucosal enhancement with intraluminal fluid involving portions of the right hemicolon and proximal transverse colon suspicious for component of a mild colitis. 2. Mild ascites with mild anasarca. 3. Hyperdense lesions involving both kidneys are most suspicious for proteinaceous cyst. A nonemergen t follow-up renal ultrasound is recommended to confirm this suspicion. 4. Hepatic cysts. Hepatomegaly and splenomegaly appears similar to the recent MR dated 02/25/2019. 5. Stable mild prominence of the common bile duct and main pancreatic duct.
== END 2020-02-20 20:50 | disposition home or self-care (01) ==
LOC: ERS 16:30
DX: K52.9 Noninfective gastroenteritis and colitis, unspecified (principal); E78.5 Hyperlipidemia, unspecified; E78.00 Pure hypercholesterolemia, unspecified; I12.0 Hypertensive chronic kidney disease with stage 5 chronic kidney disease or end stage renal disease; N18.6 End stage renal disease; Z99.2 Dependence on renal dialysis; Z87.891 Personal history of nicotine dependence
CPT/HCPCS: 36415; 71045; 74177; 80053; 82553; 83690; 83880; 84484; 85025; 93005; 96361; 96374; J2270; Q9967

== ENCOUNTER 2020-03-23 05:57 | Outpatient (CLI) | payer MEDICARE, BC, OTHER ==
[2020-03-24 13:52] LABS: SARS-CoV-2 MS2 Positive; SARS-CoV-2 N Gene Negative; SARS-CoV-2 S Gene Negative; SARS-CoV-2 by NAA Not Detected (NotDetected); SARS-CoV-2 orf1ab Negative
== END 2020-03-23 05:58 | disposition home or self-care (01) ==
LOC: LABBT 05:57
PROVIDERS: ATTEND Internal Medicine Gastroenterology
DX: Z01.812 Encounter for preprocedural laboratory examination (principal); Z11.59 Encounter for screening for other viral diseases; C90.00 Multiple myeloma not having achieved remission; K92.1 Melena; R19.7 Diarrhea, unspecified
CPT/HCPCS: 87635; U0003

== ENCOUNTER 2020-03-28 08:36 | Day surgery (SDC) | payer MEDICARE, BC ==
[2020-03-21 12:45] VITALS: BMI 17.9
[2020-03-28] MEDS ORDERED: PROPOFOL 200 MG/20 ML VIAL ONE (10:02)
[2020-03-28 10:20] LABS: Hemoglobin 9.1 g/dL (14.0-18.0); Mean Corpuscular HGB CONC 30.2 g/dL (32.0-36.0); Mean Corpuscular Volume 99.3 fL (78.0-98.0); Mean Platelet Volume 11.2 fL (7.4-10.4); Platelet Count 114 thou/uL (130-400); RBC Distribution Width 16.9 % (11.5-14.5); Red Blood Cell (RBC) Count 3.03 mill/uL (4.70-6.10); White Blood Cell (WBC) Count 6.6 thou/uL (4.8-10.8)
[2020-03-28 10:28] LABS: Anion Gap 18 mmol/L (10-20); BUN (Urea Nitrogen) 40 mg/dL (8.4-25.7); Calc. Creatinine Clearance 7 mL/min (70-130); Calcium 8.5 mg/dL (7.8-10.44); Carbon Dioxide 20 mmol/L (23-31); Chloride 99 mmol/L (98-107); Estimated GFR-MDRD 10; Potassium 4.2 mmol/L (3.5-5.1); Sodium 133 mmol/L (136-145)
[2020-03-28] MEDS ORDERED: Dextrose 50% Abboject 50 ML SYRINGE ONE (10:34)
[2020-03-28 10:35] LABS: Glucose 32 mg/dL (83-110)
[2020-03-28 10:43] LABS: Band 2 % (5-11); Eosinophils 1 % (0-10); Hypochromia SLIGHT = 6-15 cells (100X) (0-5/hpf); Lymphocytes 14 % (21-51); MDiff Complete? YES; Monocytes 12 % (0-10); Neutrophil 71 % (42-75); Platelet Morphology Comment Appears Decreased; Polychromasia SLIGHT = 2-3 cells (100X) (0-2/hpf); Target Cells MODERATE= 6-15 cells (100X) (0-1/hpf)
--- NOTE | 2020-03-28 12:43 | OP ---
DATE OF PROCEDURE: 03/28/2020 PREOPERATIVE DIAGNOSES: 1. Rectal bleeding. 2. History of multiple myeloma. 3. The patient was having diarrhea, but today he reports that has resolved with dietary change. 4. History of chronic anemia with renal failure and with intermittent bleeding from previous issues with AVMs in the colon and small bowel. He has had recent hematochezia but no transfusion requirements by his report for 6 months and he had Dieulafoy like lesion versus AVM in the proximal transverse colon, was treated with APC in July 2019. ANESTHESIA: TIVA. POSTPROCEDURE DIAGNOSES: 1. Normal esophagus. 2. Atrophic gastric mucosa with slight oozing of submucosal bleeding with any kind of bumping of the stomach wall. No gross lesions. 3. Pinpoint red spots in the second portion of duodenum, nonbleeding. 4. Colonoscopy notable for diffuse nummular like lesions, flat, throughout the colon. It is unclear if this is a component of melanosis coli or a residual effect from previous procedures. No vascular abnormality. There was no bleeding from these. Multiple biopsies were taken. They are soft and flat confluent with surrounding mucosa. 5. No active bleeding or AVM seen in the ascending or transverse colon. 6. Large external hemorrhoid prolapsing, likely source of recent bleeding. RECOMMENDATIONS: 1. Anusol suppositories daily. 2. Patient's CBC today was normal with hemoglobin 9, reported lack of need for transfusion recently. No further interventions recommended at this time. 3. I have recommended he follow up with his oncologist whom he has not seen in at least 6 months by his report. 4. Would resume pantoprazole once daily. 5. Recommend he follow up with his PCP as he has stopped all of his other medications at this time. I am not sure if they really want him to do that. 6. We will follow up on biopsies. DESCRIPTION OF PROCEDURE: After the patient was informed of the risks, benefits, and possible complications of endoscopy including perforation, bleeding, reaction to medication, aspiration, informed consent was obtained. The patient was brought to the endoscopy suite, where he was sedated in standard fashion. Once he was comfortable, a bite block was placed inside his orifice. The endoscope was advanced through the esophagus, stomach, into the second and third portions of the duodenum and slowly removed. There was good visualization of mucosa. There were no mass lesions or AV malformations identified. The esophagus was normal. Stomach had grossly atrophic mucosa with slight oozing with any kind of bumping of the mucosa. Retroflexed views were normal. The stomach had normal sensibility. There was no evidence of AVMs in the stomach in forward and retroflexed views. The duodenal bulb was entered and found to be normal with no signs of old bleeding or AVMs. There were a couple of pinpoint areas of red spots in the second and third portions of duodenum. These were nonbleeding and did not have the appearance of typical AVMs. The scope was then was removed. The patient tolerated the procedure well. There were no complications. The patient had a rectal examination performed. There was a prolapsed external hemorrhoid noted. This is likely the source of patient's rectal bleeding and some erosions on the surface. The endoscope was advanced to the anal canal through the colon to the cecum, which was identified by the ileocecal valve and appendiceal orifice. The colon was notable for diffuse 3 to 4 mm nummular like lesions which were flat, more hyperpigmented than the remainder of the colon. It was unclear if this was a variant of melanosis coli or some of the effect of previous treatment for his myeloma. Random biopsies were taken from these. There were no AVMs or Dieulafoy lesions or bleeding sites seen. The scope was removed. The patient tolerated the procedure well. There were no complications. Job ID: [id number]
[2020-03-28 12:46] LABS: ALT (SGPT) 18 U/L (8-55); AST (SGOT) 53 U/L (5-34); Alkaline Phosphatase 511 U/L (40-110); Bilirubin, Direct 1.3 mg/dL (0.1-0.3); Bilirubin, Total 1.5 mg/dL (0.2-1.2); Protein, Total 6.8 g/dL (5.8-8.1)
== END 2020-03-28 13:40 | disposition home or self-care (01) ==
LOC: SDC 08:36
PROVIDERS: ATTEND Internal Medicine Gastroenterology
PROC: 0DJ08ZZ Inspection of Upper Intestinal Tract, Via Natural or Artificial Opening Endoscopic (ICD-10-PCS; principal; 2020-03-28)
PROC: 0DBE8ZX Excision of Large Intestine, Via Natural or Artificial Opening Endoscopic, Diagnostic (ICD-10-PCS; 2020-03-28)
DX: K52.9 Noninfective gastroenteritis and colitis, unspecified (principal); K64.8 Other hemorrhoids; K29.40 Chronic atrophic gastritis without bleeding; K31.89 Other diseases of stomach and duodenum; C90.01 Multiple myeloma in remission; N18.6 End stage renal disease; D63.1 Anemia in chronic kidney disease; Z87.891 Personal history of nicotine dependence; Z79.899 Other long term (current) drug therapy; Z88.0 Allergy status to penicillin; Z88.1 Allergy status to other antibiotic agents; Z89.511 Acquired absence of right leg below knee; Z89.512 Acquired absence of left leg below knee; Z99.2 Dependence on renal dialysis
CPT/HCPCS: 36415; 36416; 80048; 80076; 85025; 88305; J2704

== ENCOUNTER → 2020-06-01 | Day surgery (SDC) | payer MEDICARE, BC ==
[2020-05-31 13:50] VITALS: BMI 18.8
[2020-06-01 09:17] LABS: INR-International Normal Ratio 1.4; PTT 33.2 sec (22.9-36.1); Prothrombin Time 17.4 sec (12.0-14.7)
[2020-06-01 10:08] LABS: Hemoglobin 10.2 g/dL (14.0-18.0); Mean Corpuscular HGB CONC 30.6 g/dL (32.0-36.0); Mean Corpuscular Hemoglobin 29.6 pg (27.0-31.0); Mean Corpuscular Volume 96.9 fL (78.0-98.0); Mean Platelet Volume 11.9 fL (7.4-10.4); Platelet Count 125 thou/uL (130-400); RBC Distribution Width 16.2 % (11.5-14.5); Red Blood Cell (RBC) Count 3.45 mill/uL (4.70-6.10); White Blood Cell (WBC) Count 6.8 thou/uL (4.8-10.8)
[2020-06-01 10:11] LABS: Eosinophils 1 % (0-10); Hypochromia MODERATE=16-30 cells (100X) (0-5/hpf); Lymphocytes 16 % (21-51); MDiff Complete? YES; Monocytes 6 % (0-10); Neutrophil 74 % (42-75); Platelet Morphology Comment Appears Decreased; Polychromasia SLIGHT = 2-3 cells (100X) (0-2/hpf); Reactive Lymphocytes 3 % (0-10); Reflex for Review?? NO; Target Cells MODERATE= 6-15 cells (100X) (0-1/hpf)
[2020-06-01 12:11] VITALS: BP 119/67; TEMP 97.8
--- NOTE | 2020-06-01 14:30 | CT ---
Bone marrow aspiration/biopsy CT-guided HISTORY: Myeloma. FINDINGS: After explaining the procedure and answering all questions, limited CT imaging of the pelvi s was performed with patient prone. Sterile technique, buffered local anesthesia, CT guidance, and a posterior approach were used to care fully engage an 11-gauge bone biopsy needle into the posterior cortex of the left iliac body. Position was confirmed with CT. Blood aspirate obtained and submitted to pathology personnel. An 11-g auge core specimen was obtained without difficulty and submitted to pathology. Patient tolerated the procedure well and was dismissed in good condition. IMPRESSION : Technically successful CT-guided bone marrow biopsy/aspiration. Pathology is pending.
--- NOTE | 2020-06-02 13:16 | CT ---
Bone marrow aspiration/biopsy CT-guided HISTORY: Myeloma. FINDINGS: After explaining the procedure and answering all questions, limited CT imaging of the pelvi s was performed with patient prone. Sterile technique, buffered local anesthesia, CT guidance, and a posterior approach were used to care fully engage an 11-gauge bone biopsy needle into the posterior cortex of the left iliac body. Position was confirmed with CT. Blood aspirate obtained and submitted to pathology personnel. An 11-g auge core specimen was obtained without difficulty and submitted to pathology. Patient tolerated the procedure well and was dismissed in good condition. IMPRESSION : Technically successful CT-guided bone marrow biopsy/aspiration. Pathology is pending. Transcribed Date/Time: 06/02/2020 1:15 PM
== END ==
LOC: CT 08:48
PROVIDERS: ATTEND Internal Medicine Hematology & Oncology
PROC: 07JT3ZZ Inspection of Bone Marrow, Percutaneous Approach (ICD-10-PCS; principal; 2020-06-01)
DX: C90.00 Multiple myeloma not having achieved remission (principal); I12.0 Hypertensive chronic kidney disease with stage 5 chronic kidney disease or end stage renal disease; N18.6 End stage renal disease; D63.1 Anemia in chronic kidney disease; I25.10 Atherosclerotic heart disease of native coronary artery without angina pectoris; D50.0 Iron deficiency anemia secondary to blood loss (chronic); F41.9 Anxiety disorder, unspecified; E78.00 Pure hypercholesterolemia, unspecified; Z79.899 Other long term (current) drug therapy; Z87.891 Personal history of nicotine dependence; Z88.0 Allergy status to penicillin; Z88.1 Allergy status to other antibiotic agents; Z99.2 Dependence on renal dialysis
CPT/HCPCS: 20225; 36415; 77012; 85025; 85097; 85610; 85730; 88184; 88237; 88264; 88280; 88305; 88311; 88313; 88341; 88342; 88365

== ENCOUNTER 2020-07-08 04:36 | Emergency (ER) | payer MEDICARE, BC | END 2020-07-08 05:29 | disposition home or self-care (01) | LOC: ERS 04:36 | DX: N41.9 Inflammatory disease of prostate, unspecified (principal); K64.8 Other hemorrhoids; E78.5 Hyperlipidemia, unspecified; E78.00 Pure hypercholesterolemia, unspecified; I12.0 Hypertensive chronic kidney disease with stage 5 chronic kidney disease or end stage renal disease; N18.6 End stage renal disease; I25.2 Old myocardial infarction; Z87.891 Personal history of nicotine dependence | CPT/HCPCS: 99283 ==

== ENCOUNTER 2020-07-09 20:19 | Emergency (ER) | payer MEDICARE, BC ==
[2020-07-09 21:55] LABS: #Basophils 0.1 thou/uL (0.0-0.2); #Eosinphils 0.8 thou/uL (0.0-0.7); #Lymphocytes 1.1 thou/uL (1.20-3.40); #Monocytes 0.9 thou/uL (0.11-0.59); #Neutrophils 3.5 thou/uL (1.40-6.50); %Basophils 0.9 % (0.0-1.0); %Eosinophils 12.7 % (0.0-10.0); %Lymphocytes 16.7 % (21.0-51.0); %Monocytes 14.2 % (0.0-10.0); %Neutrophils 55.5 % (42.0-75.0); Hemoglobin 10.8 g/dL (14.0-18.0); Mean Corpuscular HGB CONC 31.1 g/dL (32.0-36.0); Mean Corpuscular Hemoglobin 28.9 pg (27.0-31.0); Platelet Count 101 thou/uL (130-400); RBC Distribution Width 17.9 % (11.5-14.5); Red Blood Cell (RBC) Count 3.74 mill/uL (4.70-6.10); White Blood Cell (WBC) Count 6.4 thou/uL (4.8-10.8)
[2020-07-09 22:12] LABS: ALT (SGPT) 10 U/L (8-55); AST (SGOT) 32 U/L (5-34); Alkaline Phosphatase 370 U/L (40-110); Anion Gap 18 mmol/L (10-20); BUN (Urea Nitrogen) 51 mg/dL (8.4-25.7); Bilirubin, Total 1.5 mg/dL (0.2-1.2); Calc. Creatinine Clearance 0 mL/min (70-130); Calcium 9.2 mg/dL (7.8-10.44); Carbon Dioxide 25 mmol/L (23-31); Chloride 100 mmol/L (98-107); Estimated GFR-MDRD 9; Globulin 4.3 g/dL (2.4-3.5); Glucose 86 mg/dL (83-110); Potassium 4.4 mmol/L (3.5-5.1); Protein, Total 7.3 g/dL (5.8-8.1); Sodium 139 mmol/L (136-145)
== END 2020-07-09 23:48 | disposition home or self-care (01) ==
LOC: ERS 20:19
DX: R42 Dizziness and giddiness (principal); I12.0 Hypertensive chronic kidney disease with stage 5 chronic kidney disease or end stage renal disease; N18.6 End stage renal disease; Z99.2 Dependence on renal dialysis; E78.5 Hyperlipidemia, unspecified; E78.00 Pure hypercholesterolemia, unspecified; D64.9 Anemia, unspecified; Z87.891 Personal history of nicotine dependence; Z85.79 Personal history of other malignant neoplasms of lymphoid, hematopoietic and related tissues
CPT/HCPCS: 36415; 80053; 85025; 93005

== ENCOUNTER 2020-07-18 02:21 | Emergency (ER) | payer MEDICARE, BC ==
[2020-07-18] MEDS ORDERED: Calcium Chloride 1 GM/10 ML Abboject SYRINGE ONE ×2 (02:27→14:15)
[2020-07-18] MEDS ORDERED: Dextrose 50% Abboject 50 ML SYRINGE ONE (14:15)
[2020-07-18] MEDS ORDERED: Sodium Bicarb 50 MEQ/50 ML Abboject 8.4% SYRINGE ONE (14:15)
[2020-07-18] MEDS ORDERED: EPINEPHrine 1 MG/10 ML Abboject SYRINGE ONE (14:15)
== END 2020-07-18 02:33 | disposition expired ==
LOC: ERS 02:21
DX: I46.9 Cardiac arrest, cause unspecified (principal); E11.22 Type 2 diabetes mellitus with diabetic chronic kidney disease; N18.6 End stage renal disease
CPT/HCPCS: 31500; J0171